=== PATIENT | male | born 1955 | race Caucasian/White ===

== ENCOUNTER → 2023-11-13 | Outpatient (CLI) | payer MEDICARE, SELFPAY ==
--- NOTE | 2023-11-13 11:28 | MRI_ITS ---
STUDY: MR PROSTATE GLAND/ PELVIS WITH T WITHOUT CONTRAST REASON FOR EXAM: Male, 68 years old. planning for XRT, eval extent of disease in prosta NO NEW CONCERNS, RECENT DX PROSTATE CANCER, PSA 7.84, 19CC CLARISCAN TECHNIQUE: Standardized fat and water weighted pulse sequences were obtained in all 3 orthogonal planes, pre-and post contrast administration. 19CC CLCARISCAN was administered for the contrast portion of the examination. COMPARISON: MRI of the prostate gland dated August 07, 2023. CT planning therapy scan dated November 13, 2023 FINDINGS: Prostate gland volume/size: 6.13 x 4.31 x 4.03 cm Anterior fibromuscular stroma: Slightly thickened and irregular Peripheral zone: Mild patchy areas of heterogeneity and intermediate to low signal in the bilateral peripheral zones. Redemonstration of a 9.2 mm ovoid low signal focus in the right posterior aspect of the peripheral zone seen on image 17/32 series #8 that demonstrates minimal peripheral enhancement on the postcontrast study but no internal enhancement is seen on image 27/42 series 4. Diffusion weighted signal in the right posterior peripheral zone lesion is dark centrally and bright peripherally. Previously described lesion in the anterior aspect of the right peripheral zone appears to be at the junction of the peripheral and transitional zone as seen on image 46/32 series 3 measuring 1.18 cm and moderate enhancement as seen on image 28/42 series 11. There is persistent bright diffusion-weighted signal in this lesion as well. Central zone: Diffusely heterogeneous and nodular and cystic suggesting hyperplasia Transitional zone: Diffusely heterogeneous and nodular and cystic suggesting hyperplasia. Mixed cystic and solid 1.99 x 1.83 cm nodule in the left transitional zone that demonstrates enhancement of the capsule but not of the central components. There is herniation of the apex of the prostate gland into the base of the bladder. Prostate capsule: Intact Seminal vesicles: Unremarkable without evidence of an infiltrative mass Pelvic sidewall lymphadenopathy: None present on the current study Bony structures: Moderate bladder wall trabeculation and thickening likely due to some degree of bladder outlet obstruction given the presence of herniated prostate components in the trigone of the bladder. Normal visualized small intestine. Normal visualized colon. There is no pelvic fluid. Normal osseous structures. No evidence of lytic or blastic lesions or marrow edema of the visualized osseous structures. Normal abdominal wall. MRI/Pelvis W/WO Contrast IMPRESSION: No significant interval change 1. Peripheral zone: Mild patchy areas of heterogeneity and intermediate to low signal in the bilateral peripheral zones. Redemonstration of a 9.2 mm ovoid low signal focus in the right posterior aspect of the peripheral zone seen on image 17/32 series #8 that demonstrates minimal peripheral enhancement on the postcontrast study but no internal enhancement is seen on image 27/42 series 4. Diffusion weighted signal in the right posterior peripheral zone lesion is dark centrally and bright peripherally. 2. Previously described lesion in the anterior aspect of the right peripheral zone appears to be at the junction of the peripheral and transitional zone as seen on image 46/32 series 3 measuring 1.18 cm and moderate enhancement as seen on image 28/42 series 11. There is persistent bright diffusion-weighted signal in this lesion as well. 3. PI-RADS 4: high (clinically significant cancer is likely to be present) and right peripheral zone posteriorly lesion Reference information: Normal prostate tissue Benign prostatic hypertrophy cancer/tumor - low signal peripheral , transitional, and central zones malignancy appears as bright on DWI and low signal on ADC map Prostate imaging-reporting and data system (PI-RADS) PI-RADS 1: very low (clinically significant cancer is highly unlikely to be present) PI-RADS 2: low (clinically significant cancer is unlikely to be present) PI-RADS 3: intermediate (the presence of clinically significant cancer is equivocal) PI-RADS 4: high (clinically significant cancer is likely to be present) PI-RADS 5: very high (clinically significant cancer is highly likely to be present) PI-RADS X: component of exam technically inadequate or not performed Prostate malignancy distribution: Peripheral zone: 70-80% Transitional zone: 10-20% Central zone: 5% or less Electronically Signed: Ferdinand Coker MD at 9:08 EST Reading Location ID and State: [address] [place] [address] , Service support ,
--- OUTSIDE RECORDS SUMMARY | 2023-11-13 12:03 | XMS RPT_ITS | CCD ---
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 Name Role Phone Maritza Rodriguez Unavailable Unavailable Maritza Rodriguez Unavailable Unavailable Osborne IIRobbie Unavailable Unavailable Maritza Rodriguez Unavailable Unavailable No, Physician Primary Care Provider Unavailkevin Rodriguez MD, Maritza Szymanski Primary Care Provider Maritza Rodriguez Unavailable [phone] Unavailable Unavailable Jennifer VIEIRA, Maritza Szymanski Primary Care Provider CHRIS ARZOLA Admitting Unavaila ANDREW Baker Attending Unavailable CHIRS ARZOLA Referring Unavaila ble MARITZA RODRIGUEZ Primary Care Unavaila ble CHRIS ARZOLA Admitting Unavaila ble MARITZA MOTTA Unavailable CHRIS ARZOLA Referring Unavaila ble JENNIFER, MARITZA SZYMANSKI Primary Care Unavaila ble CHRIS ARZLOA Admitting Unavaila ble KARINA RAO Attending Unavailable CHRIS ARZOLA Referring Unavaila ble RODRIGUEZMARITZA Guallpa Primary Care Unavaila ble CHRIS ARZOLA Admitting Unavaila ble ANDREW BOWEN Attending Unavailable CHRIS ARZOLA Referring Unavaila ble MARITZA RODRIGUEZ Primary Care Unavaila ble CHRIS ARZOLA Admitting Unavaila ble PENG WEBB Attending Unavailable CHRIS ARZOLA Referring Unavaila ble RODRIGUEZ, MARITZA SZYMANSKI Primary Care Unavaila ble CHRIS ARZOLA Admitting Unavaila ble ANDREW BOWEN Attending Unavailable CHRIS ARZOLA Referring Unavaila ble RODRIGUEZMARITZA Guallpa Primary Care Unavaila ble ARZOLA, CHRIS LANCASTER Admitting Unavaila ble ARZOLA, CHRIS LANCASTER Attending Unavaila ble RODRIGUEZ, MARITZA SZYMANSKI Primary Care Unavaila ble ARZOLA, CHRIS LANCASTER Attending Unavaila ble ARZOLA, CHRIS LANCASTER Referring Unavaila ble RODRIGUEZ, MARITZA SZYMANSKI Primary Care Unavaila ble ARZOLA, CHRIS LANCASTER Attending Unavaila ble TUMU, MICATHAN Referring Unavailable RODRIGUEZ, MARITZA SZYMANSKI Primary Care Unavaila ble ARZOLA, CHRIS LANCASTER Admitting Unavaila ble RODRIGUEZ, MARITZA SZYMANSKI Primary Care Unavaila ble THRUSH, GIULIANAPARISH FALLE Attending Unavailable NO, PHYSICIAN Primary Care Unavailable YAMEL BLANCO Attending Unavailab le Maritza Rodriguez Unavailable Shantel Arthur Unavailable Unavailable Maritza Rodriguez MD Primary Care Provider Maritza Rodriguez MD Unavailable [phone] Jennifer, Dr. Maritza Szymanski Primary Care Unav ailable Scotty, Dr. Jackson Attending Unavailable Rodrigeuz, Dr. Maritza Szymanski Primary Care Unav ailable Jerson, Dr. Shantel Musa Attending Unavailabl e Rodriguez, Dr. Maritza Szymanski Primary Care Unav ailable Arzola, Dr. Chris Lancaster Attending Unav ailable Rodriguez, Dr. Maritza Szymanski Primary Care Unav ailable Rodriguez, Dr. Maritza Szymanski Referring Unav ailable Rodriguez, Dr. Maritza Szymanski Attending Unav ailable Rodriguez, Dr. Maritza Szymanski Primary Care Unav ailable Jerson, Dr. Shantel Musa Attending Unavailabl e OsborneRobbie Referring Unavailable Rodriguez, Maritza Primary Care Unavailable OsborneRobbie Attending Unavailable Rodriguez, Maritza Primary Care Unavailable Scotty, Dr. Jackson Attending Unavailable Scotty, Dr. Jackson Referring Unavailable Rodriguez, Maritza Primary Care Unavailable Rodriguez, Maritza Referring Unavailable Scotty, Dr. Jackson Attending Unavailable [facility] Unavailable Rodriguez, Maritza Attending Unavailable Rodriguez, Maritza Referring Unavailable Donte Page MD Unavailable Maritza Rodriguez MD Primary Care Provider MARITZA RODRIGUEZ Primary Care Unavailable ROBBIE OSBORNE Attending Unavailable MRAITZA RODRIGUEZ Primary Care Unavailable RENETTA BARRAGAN Attending Unavailable MARITZA RODRIGUEZ Primary Care Unavailable JENNIFER, MARITZA Guallpa Attending Unavailable MARITZA RODRIGUEZ Referring Unavailable MARITZA RODRIGUEZ Primary Care Unavailable ROBBIE OSBORNE Attending Unavailable JENNIFER, MARITZA Guallpa Primary Care Unavailable MARITZA RODRIGUEZ Attending Unavailable MARITZA RODRIGUEZ Primary Care Unavailable MARITZA RODRIGUEZ Attending Unavailable MARITZA RODRIGUEZ Referring Unavailable MARITZA RODRIGUEZ Primary Care Unavailable MARITZA RODRIGUEZ Admitting Unavaila ble DARIA MAYO Attending Unavailable JENNIFER, MARITZA SZYMANSKI Referring Unavaila ble RODRIGUEZ, MARITZA SZYMANSKI Primary Care Unavaila ble RODRIGUEZ, MARITZA SZYMANSKI Primary Care Unavaila ble MAYODARIA Referring Unavailable MAYODARIA Admitting Unavailable Maritza Rodriguez MD Primary Care Provider ROBBIE OSBORNE Admitting Unavailable ROBBIE OSBORNE Attending Unavailable MARITZA RODRIGUEZ Primary Care Unavailable ROBBIE OSBORNE Referring Unavailable MARITZA RODRIGUEZ Primary Care Unavailable ROBBIE OSBORNE Admitting Unavailable ROBBIE OSBORNE Attending Unavailable MARITZA RODRIGUEZ Primary Care Unavailable Medications Current Medications Medication Drug Class(es) Dates Sig (Normalized) Sig (Original) acetaminophen 325 mg / HYDROcodone bitartrate 5 mg oral tablet (4 sources) Opioid Agonist Start: 11-07-2023 take 1 tablet by mouth every six hours for pain HYDROcodone-aceta minophen (Porter) 5-325 mg tablet Indications: Prostate cancer (CMS/HCC) Take 1 tablet by mouth every 6 hours if needed for severe pain (7 - 10). 20 tablet 0 11/07/2023 Active Completed/Discontinued Medications Medication Drug Class(es) Dates Sig (Normalized) Sig (Original) acetaminophen 325 mg oral tablet (1 source) Start: 09-12-2023 End: 09-12-2023 acetaminophen (Tylenol) tablet 975 mg ciprofloxacin 500 mg oral tablet (3 sources) Quinolone Antimicrobial Start: 10-31-2023 End: 11-03-2023 take 1 tablet by mouth twice daily ciprofloxacin (Cipro) 500 mg tablet Indications: Prostate cancer (CMS/HCC) Take 1 tablet (500 mg) by mouth 2 times a day for 3 days. 6 tablet 0 10/31/2023 11/03/2023 Problems Active Problems Problem Classification Problem Date Documented Date Episodic/Chronic Acquired foot deformities (10 sources) Hallux valgus; Translations: [Hallux valgus (acquired), right foot] Onset: 02-18-2022 Chronic Cancer of prostate (9 sources) Malignant tumor of prostate; Translations: [Malignant neoplasm of prostate] Onset: 09-28-2023 09-28-2023 Chronic Coronary atherosclerosis and other heart disease (7 sources) Angina pectoris; Translations: [Other and unspecified angina pectoris] Onset: 03-10-2023 Chronic Diabetes mellitus without complication (20 sources) Type 2 diabetes mellitus; Translations: [Diabetes mellitus] Onset: 12-02-2022 04-11-2021 Chronic Disorders of lipid metabolism (20 sources) Hyperlipidemia; Translations: [Other and unspecified hyperlipidemia] Onset: 02-23-2022 02-23-2022 Chronic Essential hypertension (20 sources) Hypertensive disorder; Translations: [Unspecified essential hypertension] Onset: 02-23-2022 02-23-2022 Chronic Gout and other crystal arthropathies (20 sources) Acute gout; Translations: [Gout, unspecified] 04-11-2021 Chronic Hyperplasia of prostate (20 sources) Benign prostatic hyperplasia; Translations: [Hypertrophy (benign) of prostate without urinary obstruction and other lower urinary tract symptom (LUTS)] Onset: 12-02-2022 01-17-2023 Chronic Immunizations and screening for infectious disease (16 sources) Patient encounter status; Translations: [Other specified vaccination] Episodic Mycoses (1 source) Tinea pedis; Translations: [Tinea pedis] Episodic Nonspecific chest pain (13 sources) Chest pain; Translations: [Chest pain, unspecified] Onset: 01-14-2023 01-14-2023 Episodic Osteoarthritis (20 sources) Osteoarthritis of left knee joint; Translations: [Osteoarthrosis, unspecified whether generalized or localized, lower leg] Onset: 12-02-2022 12-02-2022 Chronic Other aftercare (1 source) nursing home (current) use of oral hypoglycemic drugs; Translations: [nursing home (current) use of oral hypoglycemic drugs] Onset: 01-14-2023 Episodic Other aftercare (1 source) Other [facility]dc (current) drug therapy; Translations: [Other long term acute care registered nurse (current) drug therapy] Onset: 01-14-2023 Episodic Other and ill-defined heart disease (1 source) Cardiomegaly; Translations: [Cardiomegaly] Onset: 01-17-2023 Chronic Other bone disease and musculoskeletal deformities (20 sources) Posterior calcaneal exostosis; Translations: [Juvenile osteochondrosis of tarsus, right ankle] Onset: 01-20-2022 Chronic Other connective tissue disease (20 sources) Calcaneal spur; Translations: [Calcaneal spur, unspecified foot] Episodic Other connective tissue disease (1 source) Exostosis of right calcaneus; Translations: [Calcaneal spur, right foot] Episodic Other connective tissue disease (1 source) Calcaneal spur of right foot; Translations: [Calcaneal spur, right foot] Episodic Other connective tissue disease (3 sources) Pain in right foot; Translations: [Pain in right foot] Episodic Other connective tissue disease (1 source) Swelling of right lower limb; Translations: [Other specified soft tissue disorders] Episodic Other male genital disorders (20 sources) Secondary erectile dysfunction; Translations: [Impotence of organic origin] Onset: 12-02-2022 12-02-2022 Chronic Other male genital disorders (19 sources) Male erectile dysfunction, unspecified; Translations: [Erectile dysfunction] Onset: 12-02-2022 Chronic Other non-traumatic joint disorders (2 sources) Acute ankle pain; Translations: [Pain in right ankle and joints of right foot] Episodic Other non-traumatic joint disorders (2 sources) Knee pain; Translations: [Pain in left knee] Onset: 12-02-2022 12-02-2022 Episodic Other screening for suspected conditions (not mental disorders or infectious disease) (20 sources) Raised prostate specific antigen; Translations: [Patient encounter status] Onset: 12-02-2022 01-17-2023 Episodic Past or Other Problems Problem Classification Problem Date Documented Da te Episodic/Chronic Genitourinary symptoms and ill-defined conditions (20 sources) Nocturia; Translations: [Nocturia] Onset: 12-02-2022 12-02-2022 Episodic Other connective tissue disease (3 sources) Other specified soft tissue disorders; Translations: [Other specified soft tissue disorders] Onset: 05-12-2022 Episodic Other non-traumatic joint disorders (20 sources) Pain in left knee; Translations: [Chronic pain of left knee] Onset: 12-02-2022 12-02-2022 Episodic Unclassified (6 sources) Patient encounter status; Translations: [History of Screening PSA (prostate specific antigen)] Unclassified (9 sources) Onset: 01-17-2023 Resolved: 08-24-2023 01-17-2023 NEGATED: Highlighted row has not occurred!Residual codes; unclassified (4 sources) Disease Episodic Results Test Name Value Interpretation Reference Range Facil ity Vital Signs Date Time Vital Sign Value Performing Clinician Faci lity 11-07-2023 09:50-0500 Diastolic blood pressure 88 mm[Hg] Robbie Osborne MD Work Phone: [facility] 11-07-2023 09:50-0500 Heart rate 64 /min Robbie Osborne MD Work Phone: [facility] 11-07-2023 09:50-0500 Respiratory rate 16 /min Robbie Osborne MD Work Phone: [facility] 11-07-2023 09:50-0500 SaO2% (BldA) [Mass fraction] 99 % Robbie Osborne MD Work Phone: [facility] 11-07-2023 09:50-0500 Systolic blood pressure 141 mm[Hg] Robbie Osborne MD Work Phone: [facility] 11-07-2023 09:10-0500 Body temperature 97.11 [degF] Robbie Osborne MD Work Phone: [facility] 11-07-2023 06:33-0500 Body height 182.9 cm Robbie Osborne MD Work Phone: [facility] 11-07-2023 06:33-0500 Body mass index (BMI) [Ratio] 27.84 kg/m2 Robbie Osborne MD Work Phone: [facility] 11-07-2023 06:33-0500 Body weight 93.1 kg Robbie Osborne MD Work Phone: [facility] 09-28-2023 07:38-0500 Body mass index (BMI) [Ratio] 27.53 kg/m2 Robbie Osborne MD Work Phone: [facility] 09-28-2023 07:38-0500 Body weight 92.08 kg Robbie Osborne MD Work Phone: [facility] 09-28-2023 07:38-0500 Respiratory rate 16 /min Robbie Osborne MD Work Phone: [facility] 09-12-2023 08:40-0500 Body temperature 97 [degF] Robbie Osborne MD Work Phone: [facility] 09-12-2023 08:40-0500 Diastolic blood pressure 90 mm[Hg] Robbie Osborne MD Work Phone: [facility] 09-12-2023 08:40-0500 Heart rate 62 /min Robbie Osborne MD Work Phone: [facility] 09-12-2023 08:40-0500 Respiratory rate 16 /min Robbie Osborne MD Work Phone: [facility] 09-12-2023 08:40-0500 SaO2% (BldA) [Mass fraction] 100 % Robbie Osborne MD Work Phone: [facility] 09-12-2023 08:40-0500 Systolic blood pressure 150 mm[Hg] Robbie Osborne MD Work Phone: [facility] 09-12-2023 06:25-0500 Body height 182.9 cm Robbie Osborne MD Work Phone: [facility] 09-12-2023 06:25-0500 Body mass index (BMI) [Ratio] 28.17 kg/m2 Robbie Osborne MD Work Phone: [facility] 09-12-2023 06:25-0500 Body weight 94.2 kg Robbie Osborne MD Work Phone: [facility] 09-04-2023 14:21-0500 Body height 182.9 cm Maritza Rodriguez MD Work Phone: [facility] 09-04-2023 14:21-0500 Body mass index (BMI) [Ratio] 29.15 kg/m2 Maritza Rodriguez MD Work Phone: [facility] 09-04-2023 14:21-0500 Body weight 97.48 kg Maritza Rodriguez MD Work Phone: [facility] 09-04-2023 14:21-0500 Diastolic blood pressure 80 mm[Hg] Maritza Rodriguez MD Work Phone: [phone] [place] [address] 09-04-2023 14:21-0500 Heart rate 83 /min Maritza Rodriguez MD Work Phone: [phone] [place] [address] 09-04-2023 14:21-0500 SaO2% (BldA) [Mass fraction] 96 % Maritza Rodriguez MD Work Phone: [facility] 09-04-2023 14:21-0500 Systolic blood pressure 140 mm[Hg] Maritza Rodriguez MD Work Phone: [facility] 08-24-2023 09:18-0500 Body height 182.9 cm Renetta Barragan MD Work Phone: [facility] 08-24-2023 09:18-0500 Body mass index (BMI) [Ratio] 28.35 kg/m2 Renetta Barragan MD Work Phone: [facility] 08-24-2023 09:18-0500 Body weight 94.8 kg Renetta Barragan MD Work Phone: [facility] 08-24-2023 09:18-0500 Diastolic blood pressure 84 mm[Hg] Renetta Barragan MD Work Phone: [facility] 08-24-2023 09:18-0500 Heart rate 79 /min Renetta Barragan MD Work Phone: [facility] 08-24-2023 09:18-0500 SaO2% (BldA) [Mass fraction] 97 % Renetta Barragan MD Work Phone: [facility] 08-24-2023 09:18-0500 Systolic blood pressure 140 mm[Hg] Renetta Barragan MD Work Phone: [facility] 07-12-2023 15:43-0400 Body mass index (BMI) [Ratio] 28.68 kg/m2 Maritza Rodriguez Work Phone: IP-Rkmerwm-Hbgjzlb Work Phone: 07-12-2023 15:43-0400 Body surface area Derived from formula 2.18 m2 Maritza Rodriguez Work Phone: FX-Fdfxfzz-Emgmgkg Work Phone: 07-12-2023 15:43-0400 Body weight 95.94 kg Maritza Rodriguez Work Phone: OA-Cozxgvv-Vnpzanm Work Phone: 07-12-2023 15:43-0400 Respiratory rate 16 /min Maritza Rodriguez Work Phone: UM-Llvvqzx-Krtxmnu Work Phone: 02-24-2023 08:47-0400 Body height 182.88 cm Maritza Rodriguez Work Phone: KI-Kscvwswdra-F[address]p [address] Work Phone: 02-24-2023 08:47-0400 Body mass index (BMI) [Ratio] 28.22 kg/m2 Maritza Rodriguez Work Phone: MB-Oyecdnabtx-Fwlok [address] Work Phone: 02-24-2023 08:47-0400 Body surface area Derived from formula 2.17 m2 Maritza Rodriguez Work Phone: FP-Eylxyvcvkn-Ivnqg [address] Work Phone: 02-24-2023 08:47-0400 Body weight 94.38 kg Maritza Rodriguez Work Phone: YW-Ewbzlqykkw-Zxzcj [address] Work Phone: 02-24-2023 08:47-0400 Diastolic blood pressure 72 mm[Hg] Maritza Rodriguez Work Phone: ON-Kagtuqothw-Kfpnm [address] Work Phone: 02-24-2023 08:47-0400 Heart rate 75 /min Maritza Rodriguez Work Phone: MK-Nfxxvvacdu-Hzkie [address] Work Phone: 02-24-2023 08:47-0400 SaO2% (BldA) [Mass fraction] 95 % Maritza Rodriguez Work Phone: NP-Lbhwbtivff-Rtlbj [address] Work Phone: 02-24-2023 08:47-0400 Systolic blood pressure 132 mm[Hg] Maritza Rodriguez Work Phone: YX-Nwbhzhrtxz-Uszoi [address] Work Phone: 02-16-2023 15:50-0400 Body height 182.9 cm Maritza Rodriguez MD Work Phone: [facility] 02-16-2023 15:50-0400 Body mass index (BMI) [Ratio] 28.7 kg/m2 Maritza Rodriguez MD Work Phone: [facility] 02-16-2023 15:50-0400 Body weight 95.98 kg Maritza Rodriguez MD Work Phone: [facility] 02-16-2023 15:50-0400 Diastolic blood pressure 70 mm[Hg] Maritza Rodriguez MD Work Phone: [facility] 02-16-2023 15:50-0400 Heart rate 95 /min Maritza Rodriguez MD Work Phone: [facility] 02-16-2023 15:50-0400 SaO2% (BldA) [Mass fraction] 96 % Maritza Rodriguez MD Work Phone: [facility] 02-16-2023 15:50-0400 Systolic blood pressure 130 mm[Hg] Maritza Rodriguez MD Work Phone: [facility] 01-17-2023 16:17-0400 Body height 182.9 cm Maritza Rodriguez MD Work Phone: [facility] 01-17-2023 16:17-0400 Body mass index (BMI) [Ratio] 27.86 kg/m2 Maritza Rodriguez MD Work Phone: [facility] 01-17-2023 16:17-0400 Body weight 93.17 kg Maritza Rodrgiuez MD Work Phone: [facility] 01-17-2023 16:17-0400 Diastolic blood pressure 90 mm[Hg] Maritza Rodriguez MD Work Phone: [facility] 01-17-2023 16:17-0400 Heart rate 75 /min Maritza Rodriguez MD Work Phone: [facility] 01-17-2023 16:17-0400 SaO2% (BldA) [Mass fraction] 98 % Maritza Rodriguez MD Work Phone: [facility] 01-17-2023 16:17-0400 Systolic blood pressure 140 mm[Hg] Maritza Rodriguez MD Work Phone: [facility] 01-14-2023 11:00-0400 Diastolic blood pressure 77 mm[Hg] Maritza Rodriguez Other Phone: [facility] 01-14-2023 11:00-0400 Heart rate 56 /min Maritza Rodriguez Other Phone: [facility] 01-14-2023 11:00-0400 Respiratory rate 18 /min Maritza Rodriguez Other Phone: [facility] 01-14-2023 11:00-0400 SaO2% (BldA) [Mass fraction] 95 % Maritza Rodriguez Other Phone: [facility] 01-14-2023 11:00-0400 Systolic blood pressure 150 mm[Hg] Maritza Rodriguez Other Phone: [facility] 01-14-2023 05:16-0400 Body height 182.8 cm Maritza Rodriguez Other Phone: [facility] 01-14-2023 05:16-0400 Body temperature 97.52 [degF] Maritza Rodriguez Other Phone: [facility] 01-14-2023 05:16-0400 Body weight 90.9 kg Maritza Rodriguez Other Phone: [facility] 07-21-2022 15:04-0400 Body height 182.88 cm Maritza Rodriguez Work Phone: [employer] Work Phone: 07-21-2022 15:04-0400 Body mass index (BMI) [Ratio] 29.19 kg/m2 Maritza Rodriguez Work Phone: [facility] Work Phone: 07-21-2022 15:04-0400 Body surface area Derived from formula 2.2 m2 Maritza Rodriguez Work Phone: [facility] Work Phone: 07-21-2022 15:04-0400 Body weight 97.64 kg Maritza Rodriguez Work Phone: [facility] Work Phone: 07-21-2022 15:04-0400 Diastolic blood pressure 70 mm[Hg] Heberrufino Bordend Work Phone: [facility] Work Phone: 07-21-2022 15:04-0400 Heart rate 75 /min Maritza Rodriguez Work Phone: [facility] Work Phone: 07-21-2022 15:04-0400 SaO2% (BldA) [Mass fraction] 95 % Maritza Rodriguez Work Phone: [facility] Work Phone: 07-21-2022 15:04-0400 Systolic blood pressure 140 mm[Hg] Heberrufino Rodriguez Work Phone: [facility] Work Phone: 06-02-2022 13:30-0400 Diastolic blood pressure 82 mm[Hg] Chris Arzola DPM Work Phone: [facility] 06-02-2022 13:30-0400 Heart rate 73 /min Chris Arzola DPM Work Phone: [facility] 06-02-2022 13:30-0400 Systolic blood pressure 157 mm[Hg] Chris Arzola DPM Work Phone: [facility] 06-02-2022 13:19-0400 Body temperature 98.4 [degF] Chris Arzola DPM Work Phone: [facility] 05-12-2022 13:24-0400 Diastolic blood pressure 84 mm[Hg] Chrsi Arzola DPM Work Phone: [facility] 05-12-2022 13:24-0400 Heart rate 73 /min Chris Arzola DPM Work Phone: [facility] 05-12-2022 13:24-0400 Systolic blood pressure 171 mm[Hg] Chris Arzola DPM Work Phone: [facility] 05-12-2022 13:17-0400 Body temperature 98.6 [degF] Chris Senaman DPM Work Phone: [facility] 04-28-2022 15:38-0400 Diastolic blood pressure 72 mm[Hg] Chris Mandujanomerman DPM Work Phone: [facility] 04-28-2022 15:38-0400 Heart rate 76 /min Chris Senaman DPM Work Phone: [facility] 04-28-2022 15:38-0400 Systolic blood pressure 122 mm[Hg] Chris Senaman DPM Work Phone: [facility] 04-28-2022 15:31-0400 Body temperature 99.3 [degF] Chris Mandujanomerman DPM Work Phone: [facility] 04-07-2022 10:59-0400 Diastolic blood pressure 89 mm[Hg] Chris Mandujanomerman DPM Work Phone: [facility] 04-07-2022 10:59-0400 Heart rate 71 /min Chris Senaman DPM Work Phone: [facility] 04-07-2022 10:59-0400 Systolic blood pressure 169 mm[Hg] Chris Senaman DPM Work Phone: [facility] 04-07-2022 10:45-0400 Body temperature 98.1 [degF] Chris Senaman DPM Work Phone: [facility] 03-24-2022 10:46-0400 Diastolic blood pressure 75 mm[Hg] Chris Senaman DPM Work Phone: [facility] 03-24-2022 10:46-0400 Heart rate 73 /min Chris Senaman DPM Work Phone: [facility] 03-24-2022 10:46-0400 Systolic blood pressure 143 mm[Hg] Chris Senaman DPM Work Phone: [facility] 03-24-2022 10:44-0400 Body temperature 98.2 [degF] Chris Senaman DPM Work Phone: [facility] 03-17-2022 08:59-0400 Diastolic blood pressure 81 mm[Hg] Chrisbrody MandujanoArzola DPM Work Phone: [facility] [facility] 03-17-2022 08:59-0400 Heart rate 71 /min Chris Arzola DPM Work Phone: [facility] 03-17-2022 08:59-0400 Systolic blood pressure 158 mm[Hg] Chrisbrody MandujanoArzola DPM Work Phone: [facility] 03-17-2022 08:52-0400 Body temperature 98.4 [degF] Chrisbrody MandujanoArzola DPM Work Phone: [facility] 03-03-2022 07:44-0400 Diastolic blood pressure 74 mm[Hg] Chris Mandujanomerman DPM Work Phone: [facility] 03-03-2022 07:44-0400 Heart rate 71 /min Chrisbrody MandujanoArzola DPM Work Phone: [facility] 03-03-2022 07:44-0400 Systolic blood pressure 157 mm[Hg] Chris Mandujanomerman DPM Work Phone: [facility] 03-03-2022 07:40-0400 Body temperature 98.4 [degF] Chris Mandujanomerman DPM Work Phone: [facility] 01-04-2022 16:17-0400 Body height 182.88 cm Maritza Rodriguez Work Phone: [facility] Work Phone: 01-04-2022 16:17-0400 Body mass index (BMI) [Ratio] 27.83 kg/m2 Maritza Rodriguez Work Phone: [facility] Work Phone: 01-04-2022 16:17-0400 Body surface area Derived from formula 2.15 m2 Maritza Rodriguez Work Phone: [facility] Work Phone: 01-04-2022 16:17-0400 Body weight 93.07 kg Maritza Rodriguez Work Phone: [facility] Work Phone: 01-04-2022 16:17-0400 Diastolic blood pressure 66 mm[Hg] Maritza Rodriguez Work Phone: [facility] Work Phone: 01-04-2022 16:17-0400 Heart rate 76 /min Maritza Rodriguez Work Phone: [facility] Work Phone: 01-04-2022 16:17-0400 SaO2% (BldA) [Mass fraction] 96 % Maritza Rodriguez Work Phone: [facility] Work Phone: 01-04-2022 16:17-0400 Systolic blood pressure 122 mm[Hg] Maritza Rodriguez Work Phone: [facility] Work Phone: 12-23-2021 10:42-0500 Body temperature 98.1 [degF] Chris Arzola DPM Work Phone: [facility] 12-23-2021 10:42-0500 Diastolic blood pressure 76 mm[Hg] Chris Arzola DPM Work Phone: [facility] 12-23-2021 10:42-0500 Heart rate 71 /min Chris Arzola DPM Work Phone: [facility] 12-23-2021 10:42-0500 Systolic blood pressure 127 mm[Hg] Chris Arzola DPM Work Phone: [facility] 07-05-2021 15:53-0400 Body height 182.88 cm Maritza Rodriguez Work Phone: [facility] Work Phone: 07-05-2021 15:53-0400 Body mass index (BMI) [Ratio] 28.39 kg/m2 Maritza Rodriguez Work Phone: [facility] Work Phone: 07-05-2021 15:53-0400 Body surface area Derived from formula 2.17 m2 Maritza Rodriguez Work Phone: [facility] Work Phone: 07-05-2021 15:53-0400 Body temperature 97.5 [degF] Maritza Rodriguez Work Phone: [facility] Work Phone: 07-05-2021 15:53-0400 Body weight 94.94 kg Maritza Rodriguez Work Phone: [facility] Work Phone: 07-05-2021 15:53-0400 Diastolic blood pressure 76 mm[Hg] Maritza Rodriguez Work Phone: [facility] Work Phone: 07-05-2021 15:53-0400 Heart rate 66 /min Maritza Rodriguez Work Phone: [facility] Work Phone: 07-05-2021 15:53-0400 SaO2% (BldA) [Mass fraction] 98 % Maritza Rodriguez Work Phone: [facility] Work Phone: 07-05-2021 15:53-0400 Systolic blood pressure 130 mm[Hg] Maritza Rodriguez Work Phone: [facility] Work Phone: 06-07-2021 08:39-0400 Body height 182.88 cm Maritza Rodriguez Work Phone: [facility] Work Phone: 06-07-2021 08:39-0400 Body mass index (BMI) [Ratio] 28.89 kg/m2 Heberrufino Rodriguez Work Phone: [facility]Klf[facility]xt[facility]wn Work Phone: 06-07-2021 08:39-0400 Body surface area Derived from formula 2.19 m2 Maritza Guallpa Rodriguez Work Phone: [facility]owjo[facility]Bmvuvao Work Phone: 06-07-2021 08:39-0400 Body weight 96.62 kg Maritza Guallpa Rodriguez Work Phone: CD-Gzjqvoa-Fogrobk Work Phone: 06-07-2021 08:39-0400 Diastolic blood pressure 79 mm[Hg] Maritza Guallpa Rodriguez Work Phone: CA-Qqqbaqr-Cmcodwk Work Phone: 06-07-2021 08:39-0400 Heart rate 61 /min Heberrufino Rodriguez Work Phone: AW-Jrxaiwx-Ohddadl Work Phone: 06-07-2021 08:39-0400 Systolic blood pressure 139 mm[Hg] Hebershirleyjennifer Guallpa Rodriguez Work Phone: FS-Esknmxa-Fvclszn Work Phone: 05-27-2021 11:01-0400 Body height 182.88 cm Maritza Guallpa Rodriguez Work Phone: [facility] Work Phone: 05-27-2021 11:01-0400 Body mass index (BMI) [Ratio] 28.75 kg/m2 Maritza Rodriguez Work Phone: [facility] 300 Work Phone: 05-27-2021 11:01-0400 Body surface area Derived from formula 2.18 m2 Maritza Rodriguez Work Phone: [facility] 300 Work Phone: 05-27-2021 11:01-0400 Body temperature 97.7 [degF] Maritza Rodriguez Work Phone: [facility] 300 Work Phone: 05-27-2021 11:01-0400 Body weight 96.16 kg Maritza Rodriguez Work Phone: [facility] 300 Work Phone: 05-27-2021 11:01-0400 Diastolic blood pressure 81 mm[Hg] Maritza Rodriguze Work Phone: [facility] 300 Work Phone: 05-27-2021 11:01-0400 Heart rate 68 /min Maritza Rodriguez Work Phone: [facility] 300 Work Phone: 05-27-2021 11:01-0400 Systolic blood pressure 139 mm[Hg] Maritza Rodriguez Work Phone: [facility] 300 Work Phone: 04-22-2021 07:57-0400 Body height 182.9 cm Chris Arzola DPM Work Phone: [facility] 04-22-2021 07:57-0400 Body mass index (BMI) [Ratio] 27.8 kg/m2 Chris Arzola DPM Work Phone: [facility] 04-22-2021 07:57-0400 Body temperature 97 [degF] Chris Arzola DPM Work Phone: [facility] 04-22-2021 07:57-0400 Body weight 92.99 kg Chris Arzola DPM Work Phone: [facility] 04-22-2021 07:57-0400 Diastolic blood pressure 71 mm[Hg] Chrisbrody MandujanoArzola DPM Work Phone: [facility] 04-22-2021 07:57-0400 Heart rate 82 /min Chris Arzola DPM Work Phone: [facility] 04-22-2021 07:57-0400 Systolic blood pressure 123 mm[Hg] Chris Arzola DPM Work Phone: [facility] 03-22-2021 08:03-0400 Body height 182.9 cm Chrisbrody MandujanoArzola DPM Work Phone: [facility] 03-22-2021 08:03-0400 Body mass index (BMI) [Ratio] 27.8 kg/m2 Chris Mandujanomerman DPM Work Phone: [facility] 03-22-2021 08:03-0400 Body weight 92.99 kg Chrisbrody MandujanoArzola DPM Work Phone: [facility] 02-15-2021 09:23-0400 Diastolic blood pressure 70 mm[Hg] Chris Arzola DPM Work Phone: [facility] 02-15-2021 09:23-0400 Systolic blood pressure 140 mm[Hg] Chris Mandujanomerman DPM Work Phone: [facility] 02-14-2021 18:05-0400 Body height 182.9 cm Yamel Blanco MD Work Phone: [facility] 02-14-2021 18:05-0400 Body mass index (BMI) [Ratio] 28.48 kg/m2 Yamel Blanco MD Work Phone: [facility] 02-14-2021 18:05-0400 Body temperature 99.81 [degF] Yamel Blanco MD Work Phone: [facility] 02-14-2021 18:05-0400 Body weight 95.25 kg Yamel Blanco MD Work Phone: [facility] 02-14-2021 18:05-0400 Diastolic blood pressure 99 mm[Hg] Yamel Blanco MD Work Phone: [facility] 02-14-2021 18:05-0400 Heart rate 91 /min Yamel Blanco MD Work Phone: [facility] 02-14-2021 18:05-0400 Respiratory rate 18 /min Yamel Blanco MD Work Phone: [facility] 02-14-2021 18:05-0400 SaO2% (BldA) [Mass fraction] 96 % Yamel Blanco MD Work Phone: [facility] 02-14-2021 18:05-0400 Systolic blood pressure 158 mm[Hg] Yamel Blanco MD Work Phone: [facility] 12-28-2020 09:57-0400 BMI (Body Mass Index) 29.57 kg/m2 Robbie Osborne II QV-Tktlmyu-Bfzqvzj Work Phone: 12-28-2020 09:57-0400 Body weight 98.88 kg Robbie Osborne II BZ-Yrobecp-Qlmql nd Work Phone: 12-28-2020 09:57-0400 BP Diastolic 78 mm[Hg] Robbie Osborne II SN-Suoulxq-Hjeah nd Work Phone: 12-28-2020 09:57-0400 BP Systolic 154 mm[Hg] Robbie Osborne II MX-Gakxipx-Aerul nd Work Phone: 12-28-2020 09:57-0400 BSA (Body Surface Area) 2.21 m2 Robbie Osborne II QE-Rlqaybl-Qjmhlgk Work Phone: 12-28-2020 09:57-0400 Height 182.88 cm Robbie Osborne II EN-Oeinfjy-Jeulr nd Work Phone: 12-28-2020 09:57-0400 Pulse (Heart Rate) 79 /min Robbie Osborne II DS-Rcugdti-Ge hland Work Phone: 12-07-2020 11:00-0500 BP Diastolic 76 mm[Hg] Robbie Osborne II GZ-Whiyrpv-Rlrer nd Work Phone: 12-07-2020 11:00-0500 BP Systolic 134 mm[Hg] Robbie Osborne II PU-Lcpespx-Ninlz nd Work Phone: 12-07-2020 10:37-0500 BMI (Body Mass Index) 29.18 kg/m2 Robbie Osborne II LK-Tswcjjy-Rzpocnp Work Phone: 12-07-2020 10:37-0500 Body Temperature 96.8 [degF] Robbie Osborne GALEN TC-Wutdhmz-Viqf and Work Phone: 12-07-2020 10:37-0500 Body weight 97.58 kg Robbie Osborne II CT-Oypsbbj-Ttmkb nd Work Phone: 12-07-2020 10:37-0500 BP Diastolic 80 mm[Hg] Robbie Osborne II QB-Glybsvc-Eogyo nd Work Phone: 12-07-2020 10:37-0500 BP Systolic 140 mm[Hg] Robbie Walkertrevor AARON WS-Swmhhoz-Svmtc nd Work Phone: 12-07-2020 10:37-0500 BSA (Body Surface Area) 2.2 m2 Robbie Osborne GALEN CZ-Xsyudyt-Dzlcxmb Work Phone: 12-07-2020 10:37-0500 Height 182.88 cm Robbie Osborne II MX-Wdfyhpa-Hcudn nd Work Phone: 12-07-2020 10:37-0500 Pulse (Heart Rate) 75 /min Robbie Osborne GALEN XT-Plzgasi-Xq hland Work Phone: 12-07-2020 10:37-0500 Pulse Oximetry 99 % Robbie Dylon AARON VS-Iomjyhi-Nrvim nd Work Phone: Encounters Encounter Date Encounter Type Care Provider Facility Start: 11-07-2023 End: 11-07-2023 Subsequent hospital visit by physician Robbie Osborne MD Work Phone: [facility] [place] Procedures Date Procedure Procedure Detail Performing Clinician Start: 11-07-2023 Glucose quantitative blood xcpt reagent strip Robbie Osborne MD Work Phone: Start: 11-07-2023 PULSE OXIMETRY, SPOT Paty lita Osborne MD Work Phone: Start: 10-19-2023 Arthrocentesis aspir &/inj major jt/bursa w/o us Daria Mayo KNIFE OPERATOR Work Phone: Start: 09-12-2023 Glucose [Mass/volume ] in Serum or Plasma ROBBIE OSBORNE Start: 09-12-2023 DISCHARGE PATIENT ROBBIE OSBORNE Start: 09-12-2023 SURGICAL PATHOLOGY EXAM ROBBIE OSBORNE Start: 09-12-2023 PLACE IN OUTPATIENT/HOSPITAL AMBULATORY SURGERY ROBBIE OSBORNE Start: 09-12-2023 Glucose quantitative blood xcpt reagent strip Robbie Osborne MD Work Phone: Start: 09-12-2023 Glucose [Mass/volume ] in Serum or Plasma ROBBIE OSBORNE Start: 09-12-2023 Glucose quantitative blood xcpt reagent strip Robbie Osborne MD Work Phone: Start: 09-04-2023 FOLLOW UP IN FAMILY MEDICINE ROBBIE OSBORNE Start: 08-24-2023 ALBUMIN, URINE RANDOM C HRSANDOR RODRIGUEZ Start: 08-24-2023 Comprehensive metabo lic 2000 panel - Serum or Plasma MARITZA RODRIGUEZ Start: 08-24-2023 Hemoglobin A1c/Hemoglobin.total in Blood MARITZA RODRIGUEZ Start: 08-24-2023 Lipid panel GURPREET RODRIGUEZ Start: 08-24-2023 PROSTATE SPECIFIC AN TIGEN, SCREEN MARITZA RODRIGUEZ Start: 08-24-2023 Thyrotropin [Units/v olume] in Serum or Plasma MARITZA RODRIGUEZ Start: 08-24-2023 Lipid 1996 panel - S javier or Plasma Maritza Rodriguez MD Work Phone: Start: 08-07-2023 MR PROSTATE SHORTY BOUNDARIES ROBBIE OSBORNE Start: 08-07-2023 Mri pelvis w/o & w/c ontrast material Robbie Osborne MD Work Phone: Start: 02-16-2023 FOLLOW UP IN FAMILY MEDICINE ROBBIE OSBORNE Start: 01-14-2023 End: 01-14-2023 EKG impression Alessio Schultz Gaboalisha Start: 01-11-2023 Lipid 1996 panel - S javier or Plasma Maritza Rodriguez MD Work Phone: Start: 06-02-2022 Radex foot complete minimum 3 views Chris Lancaster Guevara DPM Work Phone: Start: 05-12-2022 Radex foot complete minimum 3 views Chris Lancaster Guevara DPM Work Phone: Start: 04-28-2022 Radex foot complete minimum 3 views Chris Lancaster Guevara DPM Work Phone: Start: 04-07-2022 NURSING COMMUNICATIO N- RITUXAN REACTION Chris Lancaster Guevara DPM Work Phone: Start: 03-24-2022 CAST REMOVAL Chrisbrody Burger sara Arzola DPM Work Phone: Start: 12-23-2021 NURSING COMMUNICATIO N- RITUXAN REACTION Chris Lancaster Guevara DPM Work Phone: Start: 03-19-2021 Assay of blood/uric acid Historical Provider Start: 02-16-2021 Complete blood count with white cell differential, manual Historical Provider Start: 02-14-2021 Radex ankle complete minimum 3 views Yamel Blanco MD Work Phone: Start: 01-05-2021 Colonoscopy Chris parks DPM Work Phone: Start: 01-05-2021 Colonoscopy Gurpreet Rodriguez Work Phone: Plan of Treatment Date Care Activity Detail Author Start: 01-05-2031 [facility] Start: 08-24-2024 Lipid panel Lipid Panel [facility] Start: 08-24-2024 Urine screening for protein Diabetes: Urine Protein Screening [facility] Start: 08-22-2024 End: 08-22-2024 Patient encounter procedure 08/22/2024 3:45 PM EST Office Visit [facility] [address] [place] [address] Renetta Barragan MD [address] [place] [address] [facility], [facility] [address] [id number] [facility] Start: 03-04-2024 End: 09-04-2024 Cholesterol in LDL [Mass/volume] in Serum or Plasma Cholesterol, LDL Direct Lab Routine Type 2 diabetes mellitus without complication, without long-term current use of insulin ([facility]) Mixed hyperlipidemia Expected: 03/04/2024 (Approximate), Expires: 09/04/2024 [facility] Service Area Work Phone: Immunizations Immunization Date Immunization Notes Care Provider Fa cility 06-09-2021 Moderna COVID-19 Vaccine 100 MCG/0.5ML Intramuscular Suspension Maritza Rodriguez Work Phone: [facility] Work Phone: Payers Date Payer Category Payer Medicare [id number] 2021 Medicare [id number] 2020 Medicare [id number] 1.2.8 [id number] 2020 Medicare [id number] 1955 Unknown [id number] 2.16. 840.1.290000.3.579.2.903 1953 Unknown [id number] 2.16. 840.1.687426.3.579.2.903 1953 Unknown [id number] 2.16. 840.1.377853.3.579.2.903 1953 Unknown [id number] 2.16. 840.1.695572.3.579.2.903 1953 Unknown [id number] 2.16. 840.1.933168.3.579.2.903 1953 Unknown [id number] 2.16. 840.1.524910.3.579.2.903 1953 Unknown [id number] 2.16. 840.1.067012.3.579.2.3 1953 Unknown [id number] 2.16. 840.1.607686.3.579.2.903 1953 Unknown [id number] 2.16. 840.1.803042.3.579.2.3 1953 Unknown [id number] 2.16. 840.1.420963.3.579.2.3 1953 Unknown [id number] 2.16. 840.1.662101.3.579.2.2 1953 Unknown [id number] 2.16.8 40.1.997403.3.579.2.1069 1953 Unknown [id number] 2.16.8 40.1.440711.3.579.2.1069 1953 Unknown [id number] 2.16.8 40.1.599292.3.579.2.9 1953 Unknown [id number] 2.16.8 40.1.658479.3.579.2.1069 1953 Unknown [id number] 2.16.8 40.1.506153.3.579.2.1069 1953 Unknown [id number] 2.16. 840.1.916602.3.579.2.356 1953 Unknown [id number] 2.16. 840.1.748102.3.579.2.356 1953 Unknown [id number] 2.16. 840.1.106999.3.579.2.356 1953 Unknown [id number] 2.16. 840.1.027938.3.579.2.356 1953 Unknown [id number] 2.16.8 40.1.972425.3.579.2.1245 1953 Unknown [id number] 2.16.8 40.1.922076.3.579.2.1244 1953 Unknown [id number] 2.16.8 40.1.551870.3.579.2.1244 1953 Unknown [id number] 2.16.8 40.1.832307.3.579.2.1244 1953 Unknown [id number] 2.16.8 40.1.578749.3.579.2.1244 1953 Unknown [id number] 2.16.84 0.1.384687.3.579.2.1244 1953 Unknown [id number] 2.16.84 0.1.139263.3.579.2.1244 1953 Unknown [id number] 2.16. 840.1.823064.3.579.2.903 1953 Unknown [id number] 2.16. 840.1.444214.3.579.2.903 1953 Unknown [id number] 2.16.84 0.1.725446.3.579.2.1243 1953 Unknown [id number] 2.16.84 0.1.480805.3.579.2.1243 1953 Unknown [id number] 2.16.84 0.1.355349.3.579.2.124 Unknown Unknown [id number] Social History Date Type Detail Facility Assertion Unknown if ever smoked [facility] Work Phone: Start: 02-14-2021 End: 01-17-2023 Tobacco smoking status NHIS Never smoker [facility] Start: 02-14-2021 End: 01-17-2023 Tobacco use and exposure Never used [facility] Start: 02-14-2021 End: 11-07-2023 Alcohol intake Current drinker of alcohol (finding) [facility] Start: 02-14-2021 Alcohol Comment occasional [facility] Start: 1955 Sex Assigned At Not on file [facility] Start: 12-13-2021 End: 11-07-2023 Exposure to SARS-CoV-2 (event) Not sure [facility] Start: 03-03-2022 End: 01-17-2023 Consumes alcohol occasionally Consumes alcohol occasionally [facility] [address] Work Phone: Tobacco smoking consumption unknown [facility] Start: 01-17-2023 Alcohol intake Not Asked [facility] Work Phone: Start: 01-17-2023 Alcohol Comment rarely [facility] Work Phone: Start: 01-17-2023 End: 11-01-2023 Gender identity Not on file [facility] Work Phone: Start: 02-11-2021 Gender identity Identifies as male gender (finding) [facility] Start: 02-11-2021 Sexual orientation Heterosexual (finding) [facility] Medical Equipment Procedure Code Equipment Code Equipment Origin al Text Equipment Identifier Dates Screw 2.7 X 20mm Cortex Self-Tap T8 Strdrv Rec - [id number] Start: 03-09-2022 Gold Markers, 1. 2mm, Soft Tissue, 20cm 17ga [place], 3-Pk, Strl - Sna - [id number] Start: 11-07-2023 Functional Status Date Assessment Result Facility Functional observable [facility] NEGATED: Highlighted row Functional performance Functional status health issues are not documented Disease [facility] Work Phone: Mental Status Date Assessment Result Facility 01-14-2023 Cognitive functi ons 39:51 [facility] NEGATED: Highlighted row Cognitive function [Interpretation] Cognitive status health issues are not documented Disease [facility] Work Phone: Clinical Notes 07-05-2020 to 11-07-2023 Discharge InstructionsOp Note - Robbie Osborne MD - 11/07/2023 8:22 AM ESTOp Note - Robbie Osborne MD - 11/07/2023 8:22 AM ESTPreprocedure Instructions - Jenny Bowden RN - 11/01/2023 12:18 PM EST<item> Note Date & Type Note Facility 11-07-2023 Hospital Discharge instructions Rita Panchal RN - 11/07/2023 8:35 AM EST See General Anesthesia Handout provided. Resume all Home Medications as prescribed unless told otherwise by Oncologist. documented in this encounter [facility] Work Phone: 11-07-2023 Note Formatting of this n ote is different from the original. Ultrasonography Transrectal Prostate with SpaceOAR and Fudicial Markers, Insertion Fiducial Marker Prostate Operative Note Date: 11/07/2023 OR Location: [facility] OR Name: Sandoval Adams, : 1955, Age: 68 y.o., , Sex: male Diagnosis Pre-op Diagnosis * Prostate cancer (CMS/HCC) [C61] Post-op Diagnosis * Prostate cancer (CMS/HCC) [C61] Procedures Ultrasonography Transrectal Prostate with SpaceOAR and Fudicial Markers 32812 - CHG US TRANSRECTAL Insertion Fiducial Marker Prostate 39407 - MD PLMT INTERSTITIAL DEV RADIAT TX PROSTATE 1/MULT Surgeons * Robbie Osborne - Primary Resident/Fellow/Other Comparison Shopper: Surgeon(s) and Role: Procedure Summary Anesthesia: General ASA: II Anesthesia Staff: Anesthesiologist: Vitor Auguste MD Estimated Blood Loss: 0mL Intra-op Medications: * No intraprocedure medications in log * Anesthesia Record Intraprocedure I/O Totals None Specimen: No specimens collected Staff: Performance Improvement Analyst: Latricia Mclaughlin RN; Donna Ventura, JESICA Scrub Person: Roxanne Pena RN; Xavier Millan Implants: Implants Type Name Action Serial No. Implant GOLD MARKERS, 1.2MM, SOFT TISSUE, 20CM 17GA NEEDLES, 3-PK, STRL - SNA - [id number] Implanted NA Indications: Sandoval Adams is an 68 y.o. male who is having surgery for Prostate cancer (CMS/HCC) [C61]. The patient was seen in the preoperative area. The risks, benefits, complications, treatment options, non-operative alternatives, expected recovery and outcomes were discussed with the patient. The possibilities of reaction to medication, pulmonary aspiration, injury to surrounding structures, bleeding, recurrent infection, the need for additional procedures, failure to diagnose a condition, and creating a complication requiring transfusion or operation were discussed with the patient. The patient concurred with the proposed plan, giving informed consent. The site of surgery was properly noted/marked if necessary per policy. The patient has been actively warmed in preoperative area. Anesthetic: General Estimated blood loss: Minimal. Complications: None. Pre-Op Diagnosis: Prostate cancer. Post-Op Diagnosis: Prostate cancer. Operation: ULTRASOUND GUIDED TRANSPERNINEAL PLACEMENT OF SPACEOAR AND FIDUCIAL MARKERS Physician: Dylon Anesthesia: General INDICATIONS AND CONSENT: patient has a history of prostate cancer who now presents for treatment. After the risks, benefits, alternatives and indications for the procedure were explained, he consented. PROCEDURE: The subject was positioned in the dorsal lithotomy position. A bilateral pudendal nerve block was performed using standard technique (1% lidocaine solution) The needle was advanced to the mid perineum region and an adequate dose of Lidocaine was injected. Once this area became anesthetized (~5 min), the needle was advanced until it was proximal to the pudendal nerve, and an additional dose of Lidocaine was injected. Once the area was completely anesthetized (~5 min), placement of SpaceOAR commence. Intra-Service Prior to needle insertion, an axial measurement of the space between the prostate (mid gland) and rectum was noted. SpaceOAR hydrogel was prepared as described in the pony rougher s Instructions For Use while the patient was prepped. With the subject maintained in the dorsal lithotomy position, the transrectal ultrasound (TRUS) probe was positioned to enable visual guidance of the needle into the space between the prostate and the rectum. Under transrectal ultrasound guidance, the 15 cm 18G needle was inserted through the rectourethralis muscle and the needle tip advanced into the perirectal fat inferior to the prostate all by using a transperineal approach and with side-fire transrectal ultrasound guidance. The needle position was confirmed in both sagittal and axial carrillo. Saline was used to dissect the space between the Denonvilliers fascia and anterior rectal wall ( hydrodissection ). A space was created with hydrodissection. With the needle tip at mid gland, the axial field was viewed to confirm the needle was not in the rectal wall (movement of the needle tip without corresponding movement of the rectal wall will confirm perirectal placement). While maintaining the desired position, aspiration was done to ensure that the needle was not in vascular space. The assembled SpaceOAR delivery system was then attached to the 18G needle. Under ultrasound guidance (sagittal plane), a smooth, continuous injection technique was used to dispense the SpaceOAR hydrogel into the space between the prostate and rectum (Denonvilliers fascia and the anterior rectal wall). The entire syringe contents (10 mL total) were injected without stopping. Optimal visualization of the needle during hydrogel administration was maintained at all times. An axial measurement of the space between the prostate (mid gland) and rectum immediately post-SpaceOAR injection was noted. No suspected penetration or compromise of the rectal wall occurred. Post-Service He will continue ciprofloxacin 500 mg twice daily until gone and follow-up next week for his pre IMRT imaging for planning with Radiation Oncologist The patient tolerated the procedure well. There were no complications. Attending Attestation: I was present and scrubbed for the entire procedure. Robbie Osborne [facility] Work Phone: 11-07-2023 Miscellaneous Notes Ultrasonography Transrectal Prostate with SpaceOAR and Fudicial Markers, Insertion Fiducial Marker Prostate Operative Note Date: 11/07/2023 OR Location: [facility] OR Name: Sandoval Adams, : 1955, Age: 68 y.o., , Sex: male Diagnosis Pre-op Diagnosis * Prostate cancer (CMS/HCC) [C61] Post-op Diagnosis * Prostate cancer (CMS/HCC) [C61] Procedures Ultrasonography Transrectal Prostate with SpaceOAR and Fudicial Markers 75281 - CHG US TRANSRECTAL Insertion Fiducial Marker Prostate 56603 - MD PLMT INTERSTITIAL DEV RADIAT TX PROSTATE 1/MULT Surgeons * Robbie Osborne - Primary Resident/Fellow/Other Comparison Shopper: Surgeon(s) and Role: Procedure Summary Anesthesia: General ASA: II Anesthesia Staff: Anesthesiologist: Vitor Auguste MD Estimated Blood Loss: 0mL Intra-op Medications: * No intraprocedure medications in log * Anesthesia Record Intraprocedure I/O Totals None Specimen: No specimens collected Staff: Performance Improvement Analyst: Latricia Mclaughlin RN; Donna Ventura RN Scrub Person: Roxanne Pena RN; Xavier Millan Implants: Implants Type Name Action Serial No. Implant GOLD MARKERS, 1.2MM, SOFT TISSUE, 20CM 17GA NEEDLES, 3-PK, STRL - SNA - [id number] Implanted NA Indications: Sandoval Adams is an 68 y.o. male who is having surgery for Prostate cancer ([facility]) [C61]. The patient was seen in the preoperative area. The risks, benefits, complications, treatment options, non-operative alternatives, expected recovery and outcomes were discussed with the patient. The possibilities of reaction to medication, pulmonary aspiration, injury to surrounding structures, bleeding, recurrent infection, the need for additional procedures, failure to diagnose a condition, and creating a complication requiring transfusion or operation were discussed with the patient. The patient concurred with the proposed plan, giving informed consent. The site of surgery was properly noted/marked if necessary per policy. The patient has been actively warmed in preoperative area. Anesthetic: General Estimated blood loss: Minimal. Complications: None. Pre-Op Diagnosis: Prostate cancer. Post-Op Diagnosis: Prostate cancer. Operation: ULTRASOUND GUIDED TRANSPERNINEAL PLACEMENT OF SPACEOAR AND FIDUCIAL MARKERS Physician: Dylon Anesthesia: General INDICATIONS AND CONSENT: patient has a history of prostate cancer who now presents for treatment. After the risks, benefits, alternatives and indications for the procedure were explained, he consented. PROCEDURE: The subject was positioned in the dorsal lithotomy position. A bilateral pudendal nerve block was performed using standard technique (1% lidocaine solution) The needle was advanced to the mid perineum region and an adequate dose of Lidocaine was injected. Once this area became anesthetized (~5 min), the needle was advanced until it was proximal to the pudendal nerve, and an additional dose of Lidocaine was injected. Once the area was completely anesthetized (~5 min), placement of SpaceOAR commence. Intra-Service Prior to needle insertion, an axial measurement of the space between the prostate (mid gland) and rectum was noted. SpaceOAR hydrogel was prepared as described in the pony rougher s Instructions For Use while the patient was prepped. With the subject maintained in the dorsal lithotomy position, the transrectal ultrasound (TRUS) probe was positioned to enable visual guidance of the needle into the space between the prostate and the rectum. Under transrectal ultrasound guidance, the 15 cm 18G needle was inserted through the rectourethralis muscle and the needle tip advanced into the perirectal fat inferior to the prostate all by using a transperineal approach and with side-fire transrectal ultrasound guidance. The needle position was confirmed in both sagittal and axial carrillo. Saline was used to dissect the space between the Denonvilliers fascia and anterior rectal wall ( hydrodissection ). A space was created with hydrodissection. With the needle tip at mid gland, the axial field was viewed to confirm the needle was not in the rectal wall (movement of the needle tip without corresponding movement of the rectal wall will confirm perirectal placement). While maintaining the desired position, aspiration was done to ensure that the needle was not in vascular space. The assembled SpaceOAR delivery system was then attached to the 18G needle. Under ultrasound guidance (sagittal plane), a smooth, continuous injection technique was used to dispense the SpaceOAR hydrogel into the space between the prostate and rectum (Denonvilliers fascia and the anterior rectal wall). The entire syringe contents (10 mL total) were injected without stopping. Optimal visualization of the needle during hydrogel administration was maintained at all times. An axial measurement of the space between the prostate (mid gland) and rectum immediately post-SpaceOAR injection was noted. No suspected penetration or compromise of the rectal wall occurred. Post-Service He will continue ciprofloxacin 500 mg twice daily until gone and follow-up next week for his pre IMRT imaging for planning with Radiation Oncologist The patient tolerated the procedure well. There were no complications. Attending Attestation: I was present and scrubbed for the entire procedure. Robbie Osborne No outpatient medications have been marked as taking for the 11/07/23 encounter (Hospital Encounter). 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 male presenting with prostate cancer. Past Medical History Past Medical History: Diagnosis Date Diabetes mellitus (CMS/HCC) Encounter for screening for malignant neoplasm of prostate Screening PSA (prostate specific antigen) Hyperlipidemia Hypertension Surgical History Past Surgical History: Procedure Laterality Date OTHER SURGICAL HISTORY 11/28/2019 Tonsillectomy with adenoidectomy OTHER SURGICAL HISTORY 01/05/2021 Colonoscopy OTHER SURGICAL HISTORY 07/21/2022 Foot surgery OTHER SURGICAL HISTORY 07/21/2022 Bunionectomy PROSTATE BIOPSY Social History He reports that he has never smoked. He has never used smokeless tobacco. He reports current alcohol use. He reports that he does not currently use drugs. Family History Family History Problem Relation Name Age of Onset Breast cancer Mother Hypertension Mother Hyperlipidemia Mother Alzheimer's disease Father Allergies Patient has no known allergies. Review of Systems Constitutional: Negative for chills and fever. HENT: Negative. Eyes: Negative. Respiratory: Negative for cough and shortness of breath. Cardiovascular: Negative for chest pain and leg swelling. Gastrointestinal: Negative for nausea. Endocrine: Negative. Genitourinary: Negative for difficulty urinating. Negative except for documented in HPI Allergic/Immunologic: Negative. Neurological: Alert & oriented X 3 Hematological: Denies blood thinners Psychiatric/Behavioral: Negative. Physical Exam Vitals and nursing note reviewed. Pulmonary: Effort: Pulmonary effort is normal. Breath sounds: Normal breath sounds. Abdominal: Palpations: Abdomen is soft. Tenderness: There is no abdominal tenderness. Genitourinary: Comments: Kidneys non palpable bilaterally Bladder non palpable or tender Neurological: Mental Status: He is alert. Last Recorded Vitals Blood pressure 156/87, pulse 76, temperature 36.7 C (98.1 F), temperature source Temporal, resp. rate 19, height 1.829 m (6'), weight 93.1 kg (205 lb 4 oz), SpO2 96 %. Assessment/Plan Principal Problem: Prostate cancer (CMS/HCC) Robbie Osborne MD [facility] Work Phone: 11-07-2023 History and physical note History Of Present Illness Sandoval Adams is a 68 y.o. male presenting with prostate cancer. Past Medical History Past Medical History: Diagnosis Date Diabetes mellitus (CMS/HCC) Encounter for screening for malignant neoplasm of prostate Screening PSA (prostate specific antigen) Hyperlipidemia Hypertension Surgical History Past Surgical History: Procedure Laterality Date OTHER SURGICAL HISTORY 11/28/2019 Tonsillectomy with adenoidectomy OTHER SURGICAL HISTORY 01/05/2021 Colonoscopy OTHER SURGICAL HISTORY 07/21/2022 Foot surgery OTHER SURGICAL HISTORY 07/21/2022 Bunionectomy PROSTATE BIOPSY Social History He reports that he has never smoked. He has never used smokeless tobacco. He reports current alcohol use. He reports that he does not currently use drugs. Family History Family History Problem Relation Name Age of Onset Breast cancer Mother Hypertension Mother Hyperlipidemia Mother Alzheimer's disease Father Allergies Patient has no known allergies. Review of Systems Constitutional: Negative for chills and fever. HENT: Negative. Eyes: Negative. Respiratory: Negative for cough and shortness of breath. Cardiovascular: Negative for chest pain and leg swelling. Gastrointestinal: Negative for nausea. Endocrine: Negative. Genitourinary: Negative for difficulty urinating. Negative except for documented in HPI Allergic/Immunologic: Negative. Neurological: Alert & oriented X 3 Hematological: Denies blood thinners Psychiatric/Behavioral: Negative. Physical Exam Vitals and nursing note reviewed. Pulmonary: Effort: Pulmonary effort is normal. Breath sounds: Normal breath sounds. Abdominal: Palpations: Abdomen is soft. Tenderness: There is no abdominal tenderness. Genitourinary: Comments: Kidneys non palpable bilaterally Bladder non palpable or tender Neurological: Mental Status: He is alert. Last Recorded Vitals Blood pressure 156/87, pulse 76, temperature 36.7 C (98.1 F), temperature source Temporal, resp. rate 19, height 1.829 m (6'), weight 93.1 kg (205 lb 4 oz), SpO2 96 %. Assessment/Plan Principal Problem: Prostate cancer (CMS/HCC) Robbie Osborne MD documented in this encounter [facility] Work Phone: 11-01-2023 Note Formatting of this n ote is different from the original. No outpatient medications have been marked as taking for the 11/07/23 encounter (Hospital Encounter). 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 is a he with left knee pain. Chief Complaint Patient presents with Left Knee - Pain . HPI: Knee Pain: Patient presents to the office today with left knee pain. He denies any injury to the knee. He reports having pain and discomfort on a consistent basis. He is still able to do everything he wants and needs to do on a daily basis. He does use otc pain medications as needed which do seem to help with his symptoms. He hasn't had any type of injections or any type of physical therapy for the left knee. He is inquiring about a possible knee replacement. PMH: No Known Allergies Current Outpatient Medications: amLODIPine (NORVASC) 5 MG tablet, Take 5 mg by mouth daily evening ., Disp: , Rfl: atorvastatin (LIPITOR) 40 MG tablet, Take 40 mg by mouth daily evening ., Disp: , Rfl: glimepiride (AMARYL) 1 MG tablet, , Disp: , Rfl: lisinopriL (PRINIVIL,ZESTRIL) 40 MG tablet, Take 40 mg by mouth morning ., Disp: , Rfl: pioglitazone-metFORMIN (ACTOPLUS MET) 15-850 mg per tablet, Take 1 tablet by mouth Morning and evening ., Disp: , Rfl: Past Medical History: Diagnosis Date Diabetes (HCC) Diabetes mellitus (HCC) Diabetes mellitus, type 2 (HCC) GERD (gastroesophageal reflux disease) Gout attack Right ankle Heel spur Hyperlipidemia Hypertension Past Surgical History: Procedure Laterality Date BUNIONECTOMY Right 03/09/2022 Procedure: Neal BUNIONECTOMY right; Surgeon: Chris Arzola DPM; Location: [facility]; Service: Podiatry CT COLONOSCOPY 10/30/2022 CT COLONOSCOPY EXCISION JOSE'S DEFORMITY Right 03/09/2022 Procedure: EXCISION JOSE'S DEFORMITY right; Surgeon: Chris Arzola DPM; Location: [facility]; Service: Podiatry TONSILLECTOMY Social History Socioeconomic History Marital status: Tobacco Use Smoking status: Never Smokeless tobacco: Never Vaping Use Vaping Use: Never used Substance and Sexual Activity Alcohol use: Yes Comment: occasional Drug use: Never The patient's past medical history, surgical history, social history, family history, medications and allergies were reviewed with the patient today and are available in the chart for further review. ROS: Review of Systems Constitutional: Negative for activity change and fatigue. HENT: Negative for congestion, hearing loss and trouble swallowing. Eyes: Negative for visual disturbance. Respiratory: Negative for chest tightness and shortness of breath. Cardiovascular: Negative for chest pain and palpitations. Gastrointestinal: Negative for abdominal pain, diarrhea, nausea and vomiting. Endocrine: Negative for polydipsia, polyphagia and polyuria. Genitourinary: Negative for decreased urine volume, difficulty urinating and hematuria. Musculoskeletal: Positive for arthralgias and myalgias. Negative for joint swelling. Skin: Negative for color change, rash and wound. Allergic/Immunologic: Negative for immunocompromised state. Neurological: Negative for dizziness, weakness, light-headedness and numbness. Hematological: Does not bruise/bleed easily. Psychiatric/Behavioral: Negative for confusion and sleep disturbance. The patient is not nervous/anxious. PE: Physical Exam Constitutional: Appearance: He is well-developed. HENT: Head: Normocephalic. Eyes: Pupils: Pupils are equal, round, and reactive to light. Cardiovascular: Rate and Rhythm: Normal rate and regular rhythm. Pulmonary: Effort: Pulmonary effort is normal. Breath sounds: Normal breath sounds. Abdominal: General: Bowel sounds are normal. Palpations: Abdomen is soft. Musculoskeletal: General: Tenderness present. Normal range of motion. Cervical back: Normal range of motion and neck supple. Left knee: No effusion. Instability Tests: Medial Carolynn test negative and lateral Carolynn test negative. Skin: General: Skin is warm and dry. Neurological: Mental Status: He is alert and oriented to person, place, and time. ORTHO: Left Knee Exam Muscle Strength The patient has normal left knee strength. Tenderness The patient is experiencing tenderness in the medial joint line. Range of Motion The patient has normal left knee ROM. Tests Carolynn: Medial - negative Lateral - negative Varus: negative Valgus: negative Drawer: Anterior - negative Posterior - negative Other Erythema: absent Scars: absent Sensation: normal Pulse: present Swelling: mild Effusion: no effusion present Imaging: L Knee: No acute fracture or dislocation. Moderate tri-compartmental degenerative changes in the left knee. Assessment/Plan: After examination and reviewing of the patient x-ray images, we discussed treatment options. I did offer him a cortisone injection which he accepted. I did this without complications and he tolerated this well. He is able to have these every 3 months if they provide him with adequate pain relief. Diagnosis: Problem List Items Addressed This Visit None Visit Diagnoses Left knee pain, unspecified chronicity LG Jt Injection/Arthrocentesis: L knee Performed by: Daria Mayo CNP Authorized by: Daria Mayo CNP CPT 36434 - Large Joint Arthrocentesis: Consent given by: Patient Time out: Immediately prior to the procedure a time out was called Physician or proceduralist has discussed critical or nonroutine steps, procedure duration and anticipated blood loss: Yes Supporting Documentation: Indications: Pain and diagnostic evaluation Procedure Details: Location: Knee Site: L knee Prep: patient was prepped and draped in usual sterile fashion Needle size: 22 G Approach: Anterolateral Medications: 40 mg triamcinolone acetonide 40 mg/mL Anesthetic used: Lidocaine 1% Anesthetic amount (mL): 2 Patient tolerance: Patient tolerated the procedure well with no immediate complications Follow Up: No follow-ups on file. Daria Mayo CNP documented in this encounter [facility] 09-28-2023 History of Present illness Narrative Subjective Patient ID: Sandoval Adams is a 68 y.o. male. HPI Patient is here for Prostate MRI bx results. Path report showed prostate cancer. Kev 6. Most recent PSA was 9.27 on 07/08. . Prior PSA was 6.85 on 01/04. Prior PSA was 5.31 on 06/05. 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 No fhx of prostate cancer. Denies weight loss. Denies bone pain. Chronic BPH sx are mild and stable. Denies urgency and frequency. Denies dysuria. Denies hematuria. Nocturia x1. No medication for the prostate. Hx of kidney stones. Last stone was many years ago. No recent sx. ED is chronic. Review of Systems Constitutional: Negative for chills and fever. HENT: Negative. Eyes: Negative. Respiratory: Negative for cough and shortness of breath. Cardiovascular: Negative for chest pain and leg swelling. Gastrointestinal: Negative for nausea. Endocrine: Negative. Genitourinary: Negative for difficulty urinating. Negative except for documented in HPI Allergic/Immunologic: Negative. Neurological: Alert & oriented X 3 Hematological: Denies blood thinners Psychiatric/Behavioral: Negative. Objective Physical Exam Vitals and nursing note reviewed. Pulmonary: Effort: Pulmonary effort is normal. Breath sounds: Normal breath sounds. Abdominal: Palpations: Abdomen is soft. Tenderness: There is no abdominal tenderness. Genitourinary: Comments: Kidneys non palpable bilaterally Bladder non palpable or tender Neurological: Mental Status: He is alert. Assessment/Plan Diagnoses and all orders for this visit: Elevated PSA Male erectile disorder of organic origin Nocturia Prostate cancer (CMS/HCC) All available PSA values reviewed, Options discussed. Questions answered. Path report reviewed. Tx Options discussed. Pros/cons of tx options reviewed. Questions answered Discussed XRT VS Active surveilance. Patient interested in Radiation-Referral Literature given Diet changes for prostate health discussed and educational information given. Pros/Cons of prostate health supplements discussed. Treatment options for LUTS reviewed Discussed timed voiding. Discussed fluid and caffeine intake Treatment options for ED reviewed. Lifestyle change to help prevent UTIs discussed. Encouraged fluid intake. F/U 1 month REFERRAL to [facility] documented in this encounter [facility] Work Phone: 09-12-2023 Hospital Discharge instructions Antonella Swartz RN - 09/12/2023 8:43 AM EST Images from the original note were not included. Prostate Biopsy Discharge Instructions About this topic The prostate is a part of your body that helps make semen. The prostate is located at the base of the penis and in front of the rectum. Prostate biopsy is done: To help your doctor know if the lump or tumor in your prostate is cancer or not. If your blood test, called PSA or prostate specific antigen, is high. High PSA in the blood means disease in the prostate. During a prostate biopsy, the doctor uses a needle to collect pieces of tissue from the prostate. The doctor sends the tissue to the lab. The lab then checks the tissue for infection or cancer. What care is needed at home? Ask your doctor what you need to do when you go home. Make sure you ask questions if you do not understand what the doctor says. This way you will know what you need to do. Rest after the procedure to prevent bleeding from the biopsy site. Avoid activities like heavy lifting and hard exercise. You may see some blood in your urine or stools for the next few days. You may also have blood in your semen for a few weeks. Drink up to 8 glasses of water a day to help flush out blood. Use an ice pack to help with the pain and to help stop the bleeding for the first 2 days [address] the procedure[address] an ice pack or a bag of frozen peas wrapped in a towel over the painful part. Never put ice right on the skin. Do not leave the ice on more than 10 to 15 minutes at a time. Use ice each hour as needed. Keep your rectal opening and penis clean to prevent infection. Keep your wound dry for the next 24 hours. Ask your doctor about when you may take a bath or shower. Change the dressing if it gets soaked. What follow-up care is needed? Your doctor may ask you to make visits to the office to check on your progress. Be sure to keep your visits. It may take up to 2 weeks for your doctor to get the results. You may be asked to return to the doctor's office for the result of the biopsy in 2 to 3 weeks. The results will help your doctor understand what kind of problem you have with your prostate. Together you can make a plan for more care. Your doctor will talk with you if any other treatment is needed. What drugs may be needed? The doctor may order drugs to: Help with pain Prevent infection Will physical activity be limited? Avoid doing activities that may put pressure on your rectal area for the next 7 days. You may be more comfortable if you do not ride a bike, horse, or motorcycle. Limit your sexual activity for a few days after the procedure. Ask your doctor when you can have sex. Do not strain when going to the bathroom. Don't hold your urine. Holding back from urinating can irritate your bladder and lead to a urinary tract infection. Avoid constipation by eating foods high in fiber and staying hydrated. Straining to pass stool can worsen your symptoms as you heal. What problems could happen? Infection at the biopsy site Infection elsewhere in your body Bleeding from your rectum, or blood in your urine or semen Tumor spread Very bad pain Bladder or rectum perforation Urinary tract infection Trouble passing urine Erectile dysfunction Reduced sexual activity When do I need to call the doctor? Signs of infection like fever of 100.4 F (38 C) or higher, chills, burning or pain when you pass urine. No urine or more problems passing urine Dizziness, confusion, or weakness Yellowish, greenish, or bloody discharge from the penis Lots of rectal bleeding or large amounts of blood in the urine Pain does not go away even after taking your drugs Teach Back: Helping You Understand The Teach Back Method helps you understand the information we are giving you. After you talk with the staff, tell them in your own words what you learned. This helps to make sure the staff has described each thing clearly. It also helps to explain things that may have been confusing. Before going home, make sure you can do these: I can tell you about my procedure. I can tell you what may help ease my pain. I can tell you what I will do if I have a fever, chills, problems passing urine, or drainage from my penis. Last Reviewed Date 2021-03-02 Consumer Information Use and Disclaimer This generalized information is a limited summary of diagnosis, treatment, and/or medication information. It is not meant to be comprehensive and should be used as a tool to help the user understand and/or assess potential diagnostic and treatment options. It does NOT include all information about conditions, treatments, medications, side effects, or risks that may apply to a specific patient. It is not intended to be medical advice or a substitute for the medical advice, diagnosis, or treatment of a health care provider based on the health care provider's examination and assessment of a patient s specific and unique circumstances. Patients must speak with a health care provider for complete information about their health, medical questions, and treatment options, including any risks or benefits regarding use of medications. This information does not endorse any treatments or medications as safe, effective, or approved for treating a specific patient. [employer] and its affiliates disclaim any warranty or liability relating to this information or the use thereof. The use of this information is governed by the Terms of Use, available at https://www.[employer].Edai/en/k now/kuzefvqk-mijgsobalvoyv-ppnng Copyright 2022 [employer] and its affiliates and/or licensors. All rights reserved documented in this encounter [facility] Work Phone: 09-12-2023 Miscellaneous Notes MRI GUIDED PROSTATE FUSION BIOPSY, Ultrasonography Transrectal Prostate, Biopsy Anus Operative Note Date: 09/12/2023 OR Location: [facility] OR Name: Sandoval Jackie Adams, : 1955, Age: 68 y.o., , Sex: male Diagnosis Pre-op Diagnosis * Elevated PSA [R97.20] Post-op Diagnosis * Elevated PSA [R97.20] Procedures MRI GUIDED PROSTATE FUSION BIOPSY 97201 - MD PROSTATE NEEDLE BIOPSY ANY APPROACH Ultrasonography Transrectal Prostate 53758 - CHG US TRANSRECTAL Biopsy Anus 50658 - CHG US GUIDANCE NEEDLE PLACEMENT IMG S&I Surgeons * Robbie Osborne - Primary Resident/Fellow/Other Comparison Shopper: Surgeon(s) and Role: Procedure Summary Anesthesia: Monitor Anesthesia Care ASA: II Anesthesia Staff: Anesthesiologist: Vitor Auguste MD Estimated Blood Loss: 0mL Intra-op Medications: * No intraprocedure medications in log * Anesthesia Record Intraprocedure I/O Totals Intake Propofol Drip 0.00 mL The total shown is the total volume documented since Anesthesia Start was filed. Total Intake 0 mL Specimen: ID Type Source Tests Collected by Time 1 : PROSTATE NEEDLE BIOPSY RIGHT Tissue PROSTATE NEEDLE BIOPSY RIGHT SURGICAL PATHOLOGY EXAM Robbie Osborne MD 09/12/2023716 2 : PROSTATE NEEDLE BIOPSY LEFT Tissue PROSTATE NEEDLE BIOPSY LEFT SURGICAL PATHOLOGY EXAM Robbie Osborne MD 09/12/2023716 3 : AREA OF INTEREST#1 Tissue PROSTATE BIOPSY TARGETED SHORTY SURGICAL PATHOLOGY EXAM Robbie Osborne MD 09/12/2023 0717 4 : AREA OF INTEREST#2 Tissue PROSTATE BIOPSY TARGETED SHORTY SURGICAL PATHOLOGY EXAM Robbie Osborne MD 09/12/2023 0749 Staff: Performance Improvement Analyst: Donna Ventura RN Scrub Person: Roxanne Pena RN; Jett May RN Indications: Sandoval Adams is an 68 y.o. male who is having surgery for Elevated PSA [R97.20]. The patient was seen in the preoperative area. The risks, benefits, complications, treatment options, non-operative alternatives, expected recovery and outcomes were discussed with the patient. The possibilities of reaction to medication, pulmonary aspiration, injury to surrounding structures, bleeding, recurrent infection, the need for additional procedures, failure to diagnose a condition, and creating a complication requiring transfusion or operation were discussed with the patient. The patient concurred with the proposed plan, giving informed consent. The site of surgery was properly noted/marked if necessary per policy. The patient has been actively warmed in preoperative area. Pre Op dx: Elevated PSA and Abnormal MRI of the prostate Post Op Dx: SAME Procedure: MRI Guided Fusion Bx of the prostate Physician: DYLON Anesthesia: MAC Estimated Blood Loss: Minimal Complications: NONE Indications and Consent: Patient present for prostate Biopsy of lesion found on MRI. After the risks,, benefits, and indications were explained he consented to the procedure. PROCEDURE: After adequate sedation was obtained the ultrasound probe was inserted into the rectum. An ultrasound sweep of the prostate was performed. These images were then fused with the previously obtained MRI images. The lesion(s) were identified. Multiple targeted biopsies were obtained . I also performed standard Sextant biopsies of the right and left lobe of the prostate. The patient tolerated the procedure well. Attending Attestation: I was present and scrubbed for the entire procedure. Robbie Osborne No outpatient medications have been marked as taking for the 09/12/23 encounter (Hospital Encounter). 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 Will receive call day prior to surgery with arrival time documented in this encounter [facility] Work Phone: 09-12-2023 Note Formatting of this n ote is different from the original. MRI GUIDED PROSTATE FUSION BIOPSY, Ultrasonography Transrectal Prostate, Biopsy Anus Operative Note Date: 09/12/2023 OR Location: [facility] OR Name: Sandoval Adams, : 1955, Age: 68 y.o., , Sex: male Diagnosis Pre-op Diagnosis * Elevated PSA [R97.20] Post-op Diagnosis * Elevated PSA [R97.20] Procedures MRI GUIDED PROSTATE FUSION BIOPSY 23101 - MD PROSTATE NEEDLE BIOPSY ANY APPROACH Ultrasonography Transrectal Prostate 13430 - CHG US TRANSRECTAL Biopsy Anus 99127 - CHG US GUIDANCE NEEDLE PLACEMENT IMG S&I Surgeons * Robbie Osborne - Primary Resident/Fellow/Other Comparison Shopper: Surgeon(s) and Role: Procedure Summary Anesthesia: Monitor Anesthesia Care ASA: II Anesthesia Staff: Anesthesiologist: Vitor Auguste MD Estimated Blood Loss: 0mL Intra-op Medications: * No intraprocedure medications in log * Anesthesia Record Intraprocedure I/O Totals Intake Propofol Drip 0.00 mL The total shown is the total volume documented since Anesthesia Start was filed. Total Intake 0 mL Specimen: ID Type Source Tests Collected by Time 1 : PROSTATE NEEDLE BIOPSY RIGHT Tissue PROSTATE NEEDLE BIOPSY RIGHT SURGICAL PATHOLOGY EXAM Robbie Osborne MD 09/12/2023716 2 : PROSTATE NEEDLE BIOPSY LEFT Tissue PROSTATE NEEDLE BIOPSY LEFT SURGICAL PATHOLOGY EXAM Robbie Osborne MD 09/12/202317 3 : AREA OF INTEREST#1 Tissue PROSTATE BIOPSY TARGETED SHORTY SURGICAL PATHOLOGY EXAM Robbie Osborne MD 09/12/202317 4 : AREA OF INTEREST#2 Tissue PROSTATE BIOPSY TARGETED SHORTY SURGICAL PATHOLOGY EXAM Robbie Osborne MD 09/12/2023 0749 Staff: Performance Improvement Analyst: Donna Ventura RN Scrub Person: Roxanne Pena RN; Jett May RN Indications: Sandoval Adams is an 68 y.o. male who is having surgery for Elevated PSA [R97.20]. The patient was seen in the preoperative area. The risks, benefits, complications, treatment options, non-operative alternatives, expected recovery and outcomes were discussed with the patient. The possibilities of reaction to medication, pulmonary aspiration, injury to surrounding structures, bleeding, recurrent infection, the need for additional procedures, failure to diagnose a condition, and creating a complication requiring transfusion or operation were discussed with the patient. The patient concurred with the proposed plan, giving informed consent. The site of surgery was properly noted/marked if necessary per policy. The patient has been actively warmed in preoperative area. Pre Op dx: Elevated PSA and Abnormal MRI of the prostate Post Op Dx: SAME Procedure: MRI Guided Fusion Bx of the prostate Physician: DYLON Anesthesia: MAC Estimated Blood Loss: Minimal Complications: NONE Indications and Consent: Patient present for prostate Biopsy of lesion found on MRI. After the risks,, benefits, and indications were explained he consented to the procedure. PROCEDURE: After adequate sedation was obtained the ultrasound probe was inserted into the rectum. An ultrasound sweep of the prostate was performed. These images were then fused with the previously obtained MRI images. The lesion(s) were identified. Multiple targeted biopsies were obtained . I also performed standard Sextant biopsies of the right and left lobe of the prostate. The patient tolerated the procedure well. Attending Attestation: I was present and scrubbed for the entire procedure. Robbie Osborne [facility] Work Phone: 09-12-2023 History and physical note History Of Present Illness Sandoval Adams is a 68 y.o. male presenting with elevated PSA. Past Medical History Past Medical History: Diagnosis Date Encounter for screening for malignant neoplasm of prostate Screening PSA (prostate specific antigen) Surgical History Past Surgical History: Procedure Laterality Date BI MR GUIDED BREAST BIOPSY RIGHT Right 02/22/2022 BI MR GUIDED BREAST BIOPSY RIGHT 02/22/2022 OTHER SURGICAL HISTORY 11/28/2019 Tonsillectomy with adenoidectomy OTHER SURGICAL HISTORY 01/05/2021 Colonoscopy OTHER SURGICAL HISTORY 07/21/2022 Foot surgery OTHER SURGICAL HISTORY 07/21/2022 Bunionectomy Social History He reports that he has never smoked. He has never used smokeless tobacco. He reports current alcohol use. He reports that he does not currently use drugs. Family History Family History Problem Relation Name Age of Onset Breast cancer Mother Hypertension Mother Hyperlipidemia Mother Alzheimer's disease Father Allergies Patient has no known allergies. Review of Systems Constitutional: Negative for chills and fever. HENT: Negative. Eyes: Negative. Respiratory: Negative for cough and shortness of breath. Cardiovascular: Negative for chest pain and leg swelling. Gastrointestinal: Negative for nausea. Endocrine: Negative. Genitourinary: Negative for difficulty urinating. Negative except for documented in HPI Allergic/Immunologic: Negative. Neurological: Alert & oriented X 3 Hematological: Denies blood thinners Psychiatric/Behavioral: Negative. Physical Exam Vitals and nursing note reviewed. Pulmonary: Effort: Pulmonary effort is normal. Breath sounds: Normal breath sounds. Abdominal: Palpations: Abdomen is soft. Tenderness: There is no abdominal tenderness. Genitourinary: Comments: Kidneys non palpable bilaterally Bladder non palpable or tender Neurological: Mental Status: He is alert. Last Recorded Vitals Blood pressure (!) 165/93, pulse 75, temperature 36.8 C (98.3 F), temperature source Temporal, resp. rate 13, height 1.829 m (6'), weight 94.2 kg (207 lb 10.8 oz), SpO2 99 %. Assessment/Plan Principal Problem: Elevated PSA Robbie Osborne MD [facility] Work Phone: 09-12-2023 History and physical note History Of Present Illness Sandoval Adams is a 68 y.o. male presenting with elevated PSA. Past Medical History Past Medical History: Diagnosis Date Encounter for screening for malignant neoplasm of prostate Screening PSA (prostate specific antigen) Surgical History Past Surgical History: Procedure Laterality Date BI MR GUIDED BREAST BIOPSY RIGHT Right 02/22/2022 BI MR GUIDED BREAST BIOPSY RIGHT 02/22/2022 OTHER SURGICAL HISTORY 11/28/2019 Tonsillectomy with adenoidectomy OTHER SURGICAL HISTORY 01/05/2021 Colonoscopy OTHER SURGICAL HISTORY 07/21/2022 Foot surgery OTHER SURGICAL HISTORY 07/21/2022 Bunionectomy Social History He reports that he has never smoked. He has never used smokeless tobacco. He reports current alcohol use. He reports that he does not currently use drugs. Family History Family History Problem Relation Name Age of Onset Breast cancer Mother Hypertension Mother Hyperlipidemia Mother Alzheimer's disease Father Allergies Patient has no known allergies. Review of Systems Constitutional: Negative for chills and fever. HENT: Negative. Eyes: Negative. Respiratory: Negative for cough and shortness of breath. Cardiovascular: Negative for chest pain and leg swelling. Gastrointestinal: Negative for nausea. Endocrine: Negative. Genitourinary: Negative for difficulty urinating. Negative except for documented in HPI Allergic/Immunologic: Negative. Neurological: Alert & oriented X 3 Hematological: Denies blood thinners Psychiatric/Behavioral: Negative. Physical Exam Vitals and nursing note reviewed. Pulmonary: Effort: Pulmonary effort is normal. Breath sounds: Normal breath sounds. Abdominal: Palpations: Abdomen is soft. Tenderness: There is no abdominal tenderness. Genitourinary: Comments: Kidneys non palpable bilaterally Bladder non palpable or tender Neurological: Mental Status: He is alert. Last Recorded Vitals Blood pressure (!) 165/93, pulse 75, temperature 36.8 C (98.3 F), temperature source Temporal, resp. rate 13, height 1.829 m (6'), weight 94.2 kg (207 lb 10.8 oz), SpO2 99 %. Assessment/Plan Principal Problem: Elevated PSA Robbie Osborne MD H&P reviewed. The patient was examined and there are no changes to the H&P. Source Note - Micaela Negron MA - 08/30/2023 4:48 PM EST Med for bx documented in this encounter [facility] Work Phone: 09-12-2023 Attending History and physical note H&P reviewed. The patient was examined and there are no changes to the H&P. Source Note - Micaela Negron MA - 08/30/2023 4:48 PM EST Med for bx [facility] Work Phone: 09-05-2023 Note Formatting of this n ote is different from the original. No outpatient medications have been marked as taking for the 09/12/23 encounter (Hospital Encounter). 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 Will receive call day prior to surgery with arrival time [facility] 09-04-2023 Evaluation + Plan note Associated Problem(s): Benign prostatic hyperplasia without lower urinary tract symptoms Recently seen urology, PSA testing continuing to trend up, is awaiting to do biopsy. [facility] Work Phone: 09-04-2023 Evaluation + Plan note Associated Problem(s): Diabetes mellitus, type 2 (CMS/HCC) A1c testing below 7, continue with current medications. [facility] Work Phone: 09-04-2023 Miscellaneous Notes Associated Problem(s): Benign prostatic hyperplasia without lower urinary tract symptoms Recently seen urology, PSA testing continuing to trend up, is awaiting to do biopsy. Associated Problem(s): Diabetes mellitus, type 2 (CMS/HCC) A1c testing below 7, continue with current medications. Associated Problem(s): Hyperlipidemia Blood testing stable no change. Associated Problem(s): HTN (hypertension) Blood pressure under good control renal function stable, no change. documented in this encounter [facility] Work Phone: 09-04-2023 Evaluation + Plan note Associated Problem(s): Hyperlipidemia Blood testing stable no change. [facility] Work Phone: 09-04-2023 Evaluation + Plan note Associated Problem(s): HTN (hypertension) Blood pressure under good control renal function stable, no change. [facility] Work Phone: 09-04-2023 History of Present illness Narrative Subjective Patient ID: Sandoval Adams is a 68 y.o. male who presents for 6 MO LABS. HPI No low blood sugars since last OV, seen opthalmology in the past year, and no numbness or tingling in feet, skin normal. No headache, chest pain, shortness of breath, dizziness, lightheadedness, or edema Following with Osborne (urology) for BPH Seen cardiology due to elevated CT cardiac calcium test Pain in left knee, using ibuprofen 2 four times a day Review of Systems Constitutional: Negative for activity change, appetite change, fatigue and unexpected weight change. HENT: Negative for ear pain, nosebleeds, rhinorrhea, sneezing and trouble swallowing. Respiratory: Negative for cough, shortness of breath and wheezing. Cardiovascular: Negative for chest pain, palpitations and leg swelling. Gastrointestinal: Negative for abdominal distention, abdominal pain, constipation, diarrhea, nausea and vomiting. Genitourinary: Negative for difficulty urinating. Musculoskeletal: Positive for arthralgias. Skin: Negative for rash. Neurological: Negative for dizziness, light-headedness, numbness and headaches. Hematological: Negative for adenopathy. Psychiatric/Behavioral: Negative for behavioral problems. All other systems reviewed and are negative. Current Outpatient Medications: amLODIPine (Norvasc) 10 mg tablet, Take 1 tablet (10 mg) by mouth once daily., Disp: 90 tablet, Rfl: 3 aspirin 81 mg chewable tablet, Chew 1 tablet (81 mg) once daily., Disp: , Rfl: lisinopril 40 mg tablet, Take 1 tablet (40 mg) by mouth once daily., Disp: 90 tablet, Rfl: 3 glimepiride (Amaryl) 1 mg tablet, Take 1 tablet (1 mg) by mouth once daily., Disp: 90 tablet, Rfl: 3 pioglitazone-metformin (ACTOPlus Met) 15-850 mg tablet, Take 1 tablet by mouth 2 times a day., Disp: 180 tablet, Rfl: 3 rosuvastatin (Crestor) 20 mg tablet, Take 1 tablet (20 mg) by mouth once daily., Disp: 90 tablet, Rfl: 3 Objective BP 140/80 Pulse 83 Ht 1.829 m (6') Wt 97.5 kg (214 lb 14.4 oz) SpO2 96% BMI 29.15 kg/m Physical Exam Vitals and nursing note reviewed. Constitutional: Appearance: Normal appearance. HENT: Head: Normocephalic and atraumatic. Right Ear: Tympanic membrane, ear canal and external ear normal. Left Ear: Tympanic membrane, ear canal and external ear normal. Nose: Nose normal. Mouth/Throat: Mouth: Mucous membranes are moist. Pharynx: Oropharynx is clear. Cardiovascular: Rate and Rhythm: Normal rate and regular rhythm. Pulses: Normal pulses. Heart sounds: Normal heart sounds. Pulmonary: Effort: Pulmonary effort is normal. Breath sounds: Normal breath sounds. Musculoskeletal: Cervical back: Normal range of motion and neck supple. Neurological: Mental Status: He is alert. Psychiatric: Mood and Affect: Mood normal. Behavior: Behavior normal. Assessment/Plan Problem List Items Addressed This Visit ICD-10-CM Benign prostatic hyperplasia without lower urinary tract symptoms N40.0 Recently seen urology, PSA testing continuing to trend up, is awaiting to do biopsy. Relevant Orders Follow Up In Primary Care - Established Diabetes mellitus, type 2 ([facility]) - Primary E11.9 A1c testing below 7, continue with current medications. Relevant Medications glimepiride (Amaryl) 1 mg tablet pioglitazone-metformin (ACTOPlus Met) 15-850 mg tablet Other Relevant Orders Follow Up In Primary Care - Established Cholesterol, LDL Direct Comprehensive Metabolic Panel Hemoglobin A1C HTN (hypertension) I10 Blood pressure under good control renal function stable, no change. Relevant Orders Follow Up In Primary Care - Established Comprehensive Metabolic Panel Hyperlipidemia E78.5 Blood testing stable no change. Relevant Medications rosuvastatin (Crestor) 20 mg tablet Other Relevant Orders Follow Up In Primary Care - Established Cholesterol, LDL Direct Comprehensive Metabolic Panel Other Visit Diagnoses Codes Screening, ischemic heart disease Z13.6 Relevant Orders Follow Up In Primary Care - Established documented in this encounter [facility] Work Phone: 08-24-2023 History of Present illness Narrative Cardiology Subsequent Encounter Clinic Note Name: Sandoval Adams : 1955 CC: Elevated coronary artery calcium score Active Issues: Sandoval Adams is a 68 y.o. male with a medical history of diabetes, hypertension, here to establish care regarding the following: Chest heaviness -Single episode that woke him up at night. Denies any changes with position/palpation/respiration. Was admitted to the hospital; resolved within 2 hours; serial troponins were negative. EKG did not show any significant ST-T segment changes -Underwent a regadenoson stress test that showed no perfusion defects; EF was noted to be low. Has had only a single episode; denies any exertional angina or shortness of breath. Denies any orthopnea/PND. Does not have any lower extremity edema. Notably CT calcium score performed February 06, 2023 was~1100. Echo 02/2023 showed preserved biventricular function. The episode that woke him up from night associated with chest heaviness has not recurred in the past 6 months. Past Medical History Past Medical History: Diagnosis Date Encounter for screening for malignant neoplasm of prostate Screening PSA (prostate specific antigen) Past Surgical History Past Surgical History: Procedure Laterality Date OTHER SURGICAL HISTORY 11/28/2019 Tonsillectomy with adenoidectomy OTHER SURGICAL HISTORY 01/05/2021 Colonoscopy OTHER SURGICAL HISTORY 07/21/2022 Foot surgery OTHER SURGICAL HISTORY 07/21/2022 Bunionectomy Medications Current Outpatient Medications on File Prior to Visit Medication Sig Dispense Refill amLODIPine (Norvasc) 10 mg tablet Take 1 tablet (10 mg) by mouth once daily. 90 tablet 3 aspirin 81 mg chewable tablet Chew 1 tablet (81 mg) once daily. atorvastatin (Lipitor) 40 mg tablet Take 1 tablet (40 mg) by mouth once daily at bedtime. glimepiride (Amaryl) 1 mg tablet Take 1 tablet (1 mg) by mouth once daily. lisinopril 40 mg tablet Take 1 tablet (40 mg) by mouth once daily. 90 tablet 3 pioglitazone-metformin (ACTOPlus Met) 15-850 mg tablet Take 1 tablet by mouth 2 times a day. rosuvastatin (Crestor) 20 mg tablet Take 1 tablet (20 mg) by mouth once daily. No current facility-administered medications on file prior to visit. Allergies No Known Allergies Social History Social History Tobacco Use Smoking status: Never Smokeless tobacco: Never Vaping Use Vaping Use: Never used Substance Use Topics Alcohol use: Yes Comment: rarely Drug use: Not Currently Family History Family History Problem Relation Name Age of Onset Breast cancer Mother Hypertension Mother Hyperlipidemia Mother Alzheimer's disease Father Physical Examination Vitals: BP 140/84 Pulse 79 Ht 1.829 m (6') Wt 94.8 kg (209 lb) SpO2 97% BMI 28.35 kg/m General: awake, alert and oriented. No acute distress. Skin: Skin is warm, dry and intact without rashes or lesions. Appropriate color for ethnicity. Nail beds pink with no cyanosis or clubbing HEENT: normocephalic, atraumatic; conjunctivae are clear without exudates or hemorrhage. Sclera is non-icteric. Eyelids are normal in appearance without swelling or lesions. Hearing intact. Nares are patent bilaterally. Moist mucous membranes. Cardiovascular: Regular. No murmurs, gallops, or rubs are auscultated. S1 and S2 are heard and are of normal intensity. No JVD, no carotid bruits Respiratory: Thorax symmetric. CTAB, breath sounds vesicular. No crackles, wheezes or ronchi. Gastrointestinal: soft, non-distended, BS + x 4 Genitourinary: exam deferred Musculoskeletal: moves all extremities Extremities: pulses palpable bilaterally; no swelling or erythema; no edema Neurological: alert & oriented x 3; no focal deficits Psychiatric: appropriate mood and affect Labs/Imaging/Procedures Lab Results Component Value Date HGB 12.2 (L) 01/14/2023 HGB 13.0 (L) 02/15/2021 PLT 205 01/14/2023 WBC 7.3 01/14/2023 NA 142 01/14/2023 K 3.8 01/14/2023 CREATININE 1.20 01/14/2023 CREATININE 1.25 01/11/2023 CREATININE 1.32 (H) 06/30/2022 BUN 35 (H) 01/14/2023 CALCIUM 8.9 01/14/2023 TROPHS CANCELED 01/14/2023 TROPHS 8 01/14/2023 TROPHS 8 01/14/2023 LDLF 78 06/30/2022 No echocardiogram results found for the past 12 months MR prostate shorty boundaries Narrative: Interpreted By: Marixa Hess, STUDY: MR PROSTATE SHORTY BOUNDARIES; 08/07/2023 4:56 pm INDICATION: Signs/Symptoms:elevated psa. PSA is 9.27 on 07/05/2023 COMPARISON: None. ACCESSION NUMBER(S): [id number] ORDERING CLINICIAN: ROBBIE OSBORNE TECHNIQUE: Multiplanar MRI of the pelvis was obtained including axial, sagittal and coronal T2 weighted SSFSE, axial and sagittal T2 FSE, axial DWI, pre and post gadolinium dynamic T1 GRE sequences. Multiparametric analysis was performed. 18 mL Dotarem was administered intravenously without immediate complications. 3D post-processing was performed using Dheere Bolo, on an independent workstation, for the purpose of enabling fusion with ultrasound, and provided it for review. FINDINGS: PROSTATE VOLUME: The prostate measures 5.7 cm x 3.7 cm x 5.0 cm in [id number], anterior-posterior and craniocaudal dimension. PROSTATE PARENCHYMA: There is heterogeneous enlargement of the transition zone, consistent with benign prostatic hyperplasia. There is an approximately 1.2 cm well-defined T2 moderate hypointense lesion in the right anterior peripheral zone of the apex of the prostate, with markedly low ADC signal, markedly hyperintense signal on high B value DWI and early focal enhancement. There is an approximately 9 mm T2 well-defined moderately hypointense lesion in the posterior right peripheral zone of the base of the prostate with markedly hyperintense signal on the high B value DWI, markedly hypointense signal on the ADC and early focal enhancement. EXTRACAPSULAR EXTENSION: None. SEMINAL VESICLES: Within normal limits. PELVIC LYMPH NODES: No abnormally enlarged pelvic lymph nodes are identified. PERITONEUM: No free or loculated fluid collections are evident in the pelvis. OTHER ORGANS: Within normal limits. BONES: No focal lesions are noted in the bone. Right bursitis adjacent to the right hip joint. Impression: 1. A 1.2 cm PI RADS 4 lesion in the right anterior peripheral zone of the apex of the prostate. No extraprostatic extension. 2. A 0.9 cm PI RADS 4 lesion in the right posterior peripheral zone of the base of the prostate. No extraprostatic extension. 3. No pelvic lymphadenopathy. PI-RADS 4 - High (clinically significant cancer is likely to be present). 3D post-processing was performed using Dheere Bolo on an independent workstation, for the purpose of enabling fusion with ultrasound, and provided for review. I personally reviewed the images/study and I agree with the findings as stated. This study was interpreted at [place], [place]. MACRO: None Signed by: Marixa Hess 08/07/2023 10:45 PM Dictation workstation: [id number] Impression Sandoval Adams is a 68 y.o. male with a medical history of diabetes, hypertension, here to establish care regarding the following: Patient's chest heaviness does not seem consistent with anginal symptoms. He does have a high calcium score; however a recent ischemic evaluation was negative and an echocardiogram does show preserved biventricular function. At this point continue aspirin/statin. Assessment and plan: -Hypertension: Blood pressure appears to be largely well controlled. Continue current medications -Diabetes concurrent with hyperlipidemia in the setting of a high calcium score: LDL almost at goal. Continue current dose of statin. No signs and symptoms endorsed by angina. Given the lack of angina and preserved biventricular function no indication to pursue invasive ischemic evaluation/revascularization at this time. I asked him to call us back in case he develops any symptoms suggestive of ischemia -RTC 1 year Renetta Barragan MD Advanced Heart Failure/Transplant Cardiology Cardio-Oncology [facility] documented in this encounter [facility] Work Phone: 07-08-2023 History of Present illness Narrative Patient is here for 2 year f/u for hx of elevated PSA. Most recent PSA was 9.27 on 07/08. . Prior PSA was 6.85 on 01/04. Prior PSA was 5.31 on 06/05. 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 No fhx of prostate cancer. Denies weight loss. Denies bone pain. Chronic BPH sx are mild and stable. Denies urgency and frequency. Denies dysuria. Denies hematuria. Nocturia x1. No medication for the prostate. Hx of kidney stones. Last stone was many years ago. No recent sx. ED is chronic. [facility] Work Phone: 02-16-2023 Evaluation + Plan note Associated Problem(s): HTN (hypertension) Blood pressure better, encouraged to check blood pressure outside of the office, bring blood pressure meter and records with him to his next office visit. No change today. Patient to see cardiology later this month, had a markedly abnormal CT cardiac calcium score, significant family history of coronary artery disease, tolerating statin medications currently. Diabetes seems to be under good control based on last blood test, patient has been unable to tolerate thiazide diuretics in the past. [facility] Work Phone: 02-16-2023 Miscellaneous Notes Associated Problem(s): HTN (hypertension) Blood pressure better, encouraged to check blood pressure outside of the office, bring blood pressure meter and records with him to his next office visit. No change today. Patient to see cardiology later this month, had a markedly abnormal CT cardiac calcium score, significant family history of coronary artery disease, tolerating statin medications currently. Diabetes seems to be under good control based on last blood test, patient has been unable to tolerate thiazide diuretics in the past. documented in this encounter [facility] Work Phone: 02-16-2023 History of Present illness Narrative Subjective Patient ID: Sandoval Adams is a 67 y.o. male who presents for 1 MO F/U. HPI No headache, chest pain, shortness of breath, dizziness, lightheadedness, or edema No low blood sugars since last OV, seen opthalmology in the past year, and no numbness or tingling in feet, skin normal. To see Cardiology later this month HBP no checks Review of Systems Constitutional: Negative for activity change, appetite change and fatigue. Respiratory: Negative for cough, chest tightness and shortness of breath. Cardiovascular: Negative for chest pain, palpitations and leg swelling. Gastrointestinal: Negative for abdominal pain, constipation, diarrhea, nausea and vomiting. Objective BP 130/70 Pulse 95 Ht 1.829 m (6') Wt 96 kg (211 lb 9.6 oz) SpO2 96% BMI 28.70 kg/m Physical Exam Vitals and nursing note reviewed. Constitutional: Appearance: Normal appearance. Cardiovascular: Rate and Rhythm: Normal rate and regular rhythm. Pulses: Normal pulses. Heart sounds: Normal heart sounds. Pulmonary: Effort: Pulmonary effort is normal. Breath sounds: Normal breath sounds. Neurological: Mental Status: He is alert. Psychiatric: Mood and Affect: Mood normal. Behavior: Behavior normal. Assessment/Plan Problem List Items Addressed This Visit Circulatory HTN (hypertension) Blood pressure better, encouraged to check blood pressure outside of the office, bring blood pressure meter and records with him to his next office visit. No change today. Patient to see cardiology later this month, had a markedly abnormal CT cardiac calcium score, significant family history of coronary artery disease, tolerating statin medications currently. Diabetes seems to be under good control based on last blood test, patient has been unable to tolerate thiazide diuretics in the past. Relevant Orders Albumin , Urine Random Comprehensive Metabolic Panel Follow Up In Primary Care Genitourinary Benign prostatic hyperplasia without lower urinary tract symptoms Relevant Orders Follow Up In Primary Care Endocrine/Metabolic Diabetes mellitus, type 2 (CMS/HCC) Relevant Orders Albumin , Urine Random Comprehensive Metabolic Panel Hemoglobin A1C Thyroid Stimulating Hormone Lipid Panel Follow Up In Primary Care Other Hyperlipidemia Relevant Orders Comprehensive Metabolic Panel Lipid Panel Follow Up In Primary Care Other Visit Diagnoses Prostate cancer screening - Primary Relevant Orders Prostate Specific Antigen, Screen Screening, ischemic heart disease Relevant Orders Follow Up In Primary Care documented in this encounter [facility] Work Phone: 01-17-2023 Evaluation + Plan note Associated Problem(s): Hyperlipidemia LDL cholesterol below 100, slightly above 75, no change with medication tolerating statin medicine. [facility] Work Phone: 01-17-2023 Evaluation + Plan note Associated Problem(s): Diabetes mellitus, type 2 (CMS/HCC) A1c testing down below 6 now, discontinue glimepiride, continue with current medications. [facility] Work Phone: 01-17-2023 Miscellaneous Notes Associated Problem(s): Hyperlipidemia LDL cholesterol below 100, slightly above 75, no change with medication tolerating statin medicine. Associated Problem(s): Diabetes mellitus, type 2 (CMS/HCC) A1c testing down below 6 now, discontinue glimepiride, continue with current medications. Associated Problem(s): Benign prostatic hyperplasia without lower urinary tract symptoms Currently stable, PSA testing stable from 2 years ago. Associated Problem(s): HTN (hypertension) Blood pressure still elevated, had stress testing done today that also revealed elevated blood pressure, try increasing amlodipine to 10 mg, blood pressure is still elevated at next office visit consider adding low-dose furosemide. Had trouble tolerating hydrochlorothiazide in the past with kidney stones and gout documented in this encounter [facility] Work Phone: 01-17-2023 Evaluation + Plan note Associated Problem(s): Benign prostatic hyperplasia without lower urinary tract symptoms Currently stable, PSA testing stable from 2 years ago. [facility] Work Phone: 01-17-2023 Evaluation + Plan note Associated Problem(s): HTN (hypertension) Blood pressure still elevated, had stress testing done today that also revealed elevated blood pressure, try increasing amlodipine to 10 mg, blood pressure is still elevated at next office visit consider adding low-dose furosemide. Had trouble tolerating hydrochlorothiazide in the past with kidney stones and gout [facility] Work Phone: 01-17-2023 History of Present illness Narrative Subjective Reason for Visit: Sandoval Adams is an 67 y.o. male here for a Medicare Wellness visit. Past Medical, Surgical, and Family History reviewed and updated in chart. Reviewed all medications by prescribing practitioner or clinical pharmacist (such as prescriptions, OTCs, herbal therapies and supplements) and documented in the medical record. HPI Was in hospital in the past week, had CP, had stress test today (negative), pressure with radiation to shoulder, radiated to neck with deep breath No low blood sugars since last OV, seen opthalmology in the past year, and no numbness or tingling in feet, skin normal. No headache, shortness of breath, dizziness, lightheadedness, or edema HBP less than 140/90, has not had stones or gout issues in a long time, had been on hydrochlorothiazide in the past Patient Care Team: Maritza Rodriguez MD as PCP - General Maritza Rodriguez MD as PCP - [employer] PCP Review of Systems Constitutional: Negative for activity change, appetite change, fatigue and unexpected weight change. HENT: Negative for ear pain, nosebleeds, rhinorrhea, sneezing and trouble swallowing. Respiratory: Negative for cough, shortness of breath and wheezing. Cardiovascular: Negative for chest pain, palpitations and leg swelling. Gastrointestinal: Negative for abdominal distention, abdominal pain, constipation, diarrhea, nausea and vomiting. Genitourinary: Negative for difficulty urinating. Musculoskeletal: Negative for arthralgias. Skin: Negative for rash. Neurological: Negative for dizziness, light-headedness, numbness and headaches. Hematological: Negative for adenopathy. Psychiatric/Behavioral: Negative for behavioral problems. All other systems reviewed and are negative. Objective Vitals: BP 140/90 Pulse 75 Ht 1.829 m (6') Wt 93.2 kg (205 lb 6.4 oz) SpO2 98% BMI 27.86 kg/m Physical Exam Vitals and nursing note reviewed. Constitutional: General: He is not in acute distress. Appearance: Normal appearance. He is not toxic-appearing. HENT: Head: Normocephalic and atraumatic. Right Ear: Tympanic membrane, ear canal and external ear normal. Left Ear: Tympanic membrane, ear canal and external ear normal. Nose: Nose normal. Mouth/Throat: Mouth: Mucous membranes are dry. Pharynx: Oropharynx is clear. Eyes: Extraocular Movements: Extraocular movements intact. Conjunctiva/sclera: Conjunctivae normal. Pupils: Pupils are equal, round, and reactive to light. Cardiovascular: Rate and Rhythm: Normal rate and regular rhythm. Pulmonary: Effort: Pulmonary effort is normal. Breath sounds: Normal breath sounds. Abdominal: General: Abdomen is flat. Bowel sounds are normal. Palpations: Abdomen is soft. Musculoskeletal: Cervical back: Normal range of motion and neck supple. Skin: General: Skin is warm and dry. Capillary Refill: Capillary refill takes less than 2 seconds. Neurological: General: No focal deficit present. Mental Status: He is alert and oriented to person, place, and time. Mental status is at baseline. Psychiatric: Mood and Affect: Mood normal. Behavior: Behavior normal. Assessment/Plan Problem List Items Addressed This Visit Circulatory HTN (hypertension) Current Assessment & Plan Blood pressure still elevated, had stress testing done today that also revealed elevated blood pressure, try increasing amlodipine to 10 mg, blood pressure is still elevated at next office visit consider adding low-dose furosemide. Had trouble tolerating hydrochlorothiazide in the past with kidney stones and gout Relevant Medications lisinopril 40 mg tablet amLODIPine (Norvasc) 10 mg tablet Other Relevant Orders Follow Up In Primary Care Genitourinary Benign prostatic hyperplasia without lower urinary tract symptoms Current Assessment & Plan Currently stable, PSA testing stable from 2 years ago. Relevant Orders Follow Up In Primary Care Endocrine/Metabolic Diabetes mellitus, type 2 ([facility]) Current Assessment & Plan A1c testing down below 6 now, discontinue glimepiride, continue with current medications. Relevant Medications lisinopril 40 mg tablet Other Relevant Orders Follow Up In Primary Care Other Hyperlipidemia Current Assessment & Plan LDL cholesterol below 100, slightly above 75, no change with medication tolerating statin medicine. Relevant Orders Follow Up In Primary Care Other Visit Diagnoses Routine general medical examination at health care facility - Primary Screening, ischemic heart disease Relevant Orders CT cardiac scoring wo IV contrast Follow Up In Primary Care Patient status post hospitalization in the past week, had some chest pain and discomfort, stress testing today was reported as negative, patient still concerned about risk for cardiac disease check CT cardiac calcium score, if elevated consider evaluation with cardiology, contact the office if recurrence of chest pain or change in exercise tolerance. documented in this encounter [facility] Work Phone: 01-17-2023 Instructions Maritza Rodriguez MD - 01/17/2023 4:00 PM EDT Increase amlodipine to 10 mg a day and get get CT of chest done, call if chest pain returns. Stop glimepiride. documented in this encounter [facility] Work Phone: 01-14-2023 Note Send Summary: Discharge Summary Providers: Provider RoleProvider Name Maritza Edwards Hafiz Note Recipients: Maritza Rodriguez MD Discharge Summary: Admission Date: .14-Jan-2023 03:12:00 Discharge Date: 14-Jan-2023 Attending Physician at Discharge: Shantel Arthur Admission Reason: Chest pain(1) Final Discharge Diagnoses: Chest pain Procedures: none Condition at Discharge: Satisfactory Disposition at Discharge: .Home Vital Signs: T PRBPMAPSpO2 [id number]/7795% Date/Time01/14 3:164/1 9:004 9:004 9:004 9:00 Range(36.4C - 36.4C ) (55 - 71 ) (16 - 19 ) (124 - 174 )/ (74 - 85 ) (93% - 96% ) Date: Weight/Scale Type:Height: 14-Jan-2023 03:1690.9 kg 182.8 cm Physical Exam: Constitutional: Awake and alert; oriented x3 with no apparent distress or respiratory distress Eyes: PERRL, EOMI, clear sclera ENMT: mucous membranes moist, oropharynx clear Head/Neck: Normocephalic; neck supple, no apparent injury, thyroid without mass or tenderness, No JVD, trachea midline, no bruits Respiratory/Thorax: Clear to auscultation bilaterally no wheezes or rhonchi noted Cardiovascular: Regular rate and rhythm; normal S1-S2 with no murmur; no pitting edema and 2+ pulses bilaterally Gastrointestinal: Soft, nontender, nondistended, positive bowel sounds Neurological: Nonfocal, intact senses, motor, response and reflexes, normal strength; cranial nerves II through XII appear intact Psychological: Pleasant affect Hospital Course: This is a 67-year-old male admitted for chest pain. He has a heart score of 5 (H1, E0, A2, R2, T0). Comorbidities include his diabetes, hypertension, hypercholesterolemia, age and his family history. On monitor and EKG with sinus rhythm Chest pain gone completely patient hemodynamically stable denies any complaints at the moment. He really wants to go home. His troponins are unremarkable. Strongly advised him to immediately return if chest pain recurs and called EMS right away if that happens but at this point in time, he is hemodynamically stable and asymptomatic with nondiagnostic EKG and unremarkable troponins, he is really adamant to go home so we will discharge him home at the moment. Advised him with instructions. Also writing prescription for aspirin as well famotidine besides statins to continue. He will resume his pressure medicines. Discussed with staff including correctional case records supervisor who is arranging for outpatient stress test on Monday. He is scheduled appointment with PCP on Monday. No echocardiogram available on weekend so we will defer as outpatient. Again no chest pain or shortness of breath or palpitations or dizziness or leg swelling. Denies any complaints at this point in time. Denies exertional symptoms. No syncope or dizziness or lightheadedness. DC home based on condition at this point in time which is medically stable. Discharge Information and Continuing Care: Lab Results - Pending: None Radiology Results - Pending: None Discharge Instructions: Activity: activity as tolerated. Nutrition/Diet: low fat Follow Up Appointments: Follow-Up Appointment 01: Physician/Dept/Service: follow PCP Call to Schedule in: 1 week Follow-Up Appointment 02: Physician/Dept/Service: follow Cardiology this Monday for stress test Discharge Medications: Home Medication amLODIPine 5 mg oral tablet - 1 tab(s) orally once a day atorvastatin 40 mg oral tablet - 1 tab(s) orally once a day glimepiride 1 mg oral tablet - 1 tab(s) orally once a day pioglitazone-metformin 15 mg-850 mg oral tablet - 1 tab(s) orally 2 times a day lisinopril 40 mg oral tablet - 1 tab(s) orally once a day Aspirin Enteric Coated 81 mg oral delayed release tablet - 1 tab(s) orally once a day Pepcid 20 mg oral tablet - 1 tab(s) orally once a day PRN Medication DNR Status: Code StatusCode Status order at time of discharge: Full Code Electronic Signatures for Addendum Section: Shantel Arthur) (Signed Addendum 14-Jan-2023 10:22) I have attempted to reach cardiology on-call and left a message through answering service for call back to discuss the case with cardiology to be on safe side Electronic Signatures: Shantel Arthur) (Signed 14-Jan-2023 09:58) Authored: Send Summary, Summary Content, Ongoing Care, DNR Status, Note Completion Last Updated: 14-Jan-2023 10:22 by Shantel Arthur) References: 1. Data Referenced From History and Physical 14-Jan-2023 05:39 [facility] 01-14-2023 Note History of Present I llness: Admission Reason: Chest pain HPI: SANDOVAL ADAMS is a 67 year old Male This is a 67-year-old white male whose past medical history is significant for: 1. Type 2 diabetes 2. Hypertension 3. Hypercholesterolemia Patient was in his usual state of health until last night. He said he went out with his family for a little get together and they had dinner. He came home and went to bed. He woke up with a pressure-like sensation in his chest left of his sternum. It radiated to his left shoulder and then he said when he took a deep breath the pain was a little more pronounced and it radiated into his neck. It was a 4-5 out of 10 at its worst it was only a few seconds. No shortness of breath, no nausea or sweats. He got concerned because his uncle just had a stent placed and his brother also just had a coronary stent placed. He came into the ER to be evaluated. He has never had this sensation before. When he presented to the ER he is hypertensive at 170/85 with a pulse of 71 and a respiratory rate of 16. He is 96% on room air and he is afebrile. His white count is 7.3 with no shift and his H&H is 12.2 and 40.9. Platelets are 205,000. BMP is remarkable only for glucose of 138, chloride elevated at 111 and his BUN is elevated at 35. The rest are unremarkable and 2 troponins are 8. Chest x-ray is nonacute. Believe ECG shows sinus bradycardia at [address] no acute [address]-T wave changes. In the emergency room he was given 1 sublingual nitro and 324 mg of aspirin. He has a heart score of 5. He is admitted to the medical service for further evaluation. PAST MEDICAL HISTORY see above PAST SURGICAL HISTORY 1. Remote tonsillectomy 2. Heel spur surgery FAMILY HISTORY Mother with a history of metastatic breast cancer; she also had high blood pressure and cholesterol issues Father with a history of dementia 1 brother alive with a recent coronary stent placement 1 brother alive and well 1 sister alive and well 2 children alive and well SOCIAL HISTORY Patient is a living alone He works for [employer] No tobacco history Very rare alcohol use No drug abuse history Comorbidities: Comorbidites: Comorbid Conditionsdiabetes, hypertension Diabetes TypeType 2 Insulin Dependentno DM Acuity or Statusunknown DM Complicationsnone Allergies: No Known Allergies: Medications Prior to Admission: amLODIPine 5 mg oral tablet: 1 tab(s) orally once a day atorvastatin 40 mg oral tablet: 1 tab(s) orally once a day glimepiride 1 mg oral tablet: 1 tab(s) orally once a day lisinopril-hydrochlorothiazide 20 mg-12.5 mg oral tablet: 1 tab(s) orally once a day pioglitazone-metformin 15 mg-850 mg oral tablet: 1 tab(s) orally 2 times a day lisinopril 20 mg oral tablet: 1 tab(s) orally once a day. Review of Systems: Constitutional: NEGATIVE: Fever, Chills Eyes: NEGATIVE: Blurry Vision, Drainage, Diploplia, Redness, Vision Loss/ Change ENMT: NEGATIVE: Nasal Discharge, Nasal Congestion, Ear Pain, Mouth Pain, Throat Pain Respiratory: NEGATIVE: Dry Cough, Productive Cough, Hemoptysis, Wheezing, Shortness of Breath Cardiac: POSITIVE: Chest Pain; NEGATIVE: Dyspnea on Exertion, Orthopnea, Palpitations, Syncope Gastrointestinal: NEGATIVE: Nausea, Vomiting, Diarrhea, Constipation, Abdominal Pain Genitourinary: NEGATIVE: Discharge, Dysuria, Flank Pain, Frequency, Hematuria Musculoskeletal: NEGATIVE: Decreased ROM, Pain, Swelling, Stiffness, Weakness Neurological: NEGATIVE: Dizziness, Confusion, Headache, Seizures, Syncope Psychiatric: NEGATIVE: Mood Changes, Anxiety Objective: Objective Information: T PRBPMAPSpO2 [id number]/7795% Date/Time01/14 3:164 4: 4:154 4:154 4:15 Range(36.4C - 36.4C ) (58 - 71 ) (16 - 19 ) (140 - 174 )/ (77 - 85 ) (93% - 96% ) Pain reported at 01/14 3:16: 5 = Moderate Physical Exam by System: Constitutional: Awake and alert; oriented x3 with no apparent distress or respiratory distress Eyes: PERRL, EOMI, clear sclera ENMT: mucous membranes moist, oropharynx clear Head/Neck: Normocephalic; neck supple, no apparent injury, thyroid without mass or tenderness, No JVD, trachea midline, no bruits Respiratory/Thorax: Clear to auscultation bilaterally no wheezes or rhonchi noted Cardiovascular: Regular rate and rhythm; normal S1-S2 with no murmur; no pitting edema and 2+ pulses bilaterally Gastrointestinal: Soft, nontender, nondistended, positive bowel sounds Neurological: Nonfocal, intact senses, motor, response and reflexes, normal strength; cranial nerves II through XII appear intact Psychological: Pleasant affect Recent Lab Results: Results: I have reviewed these laboratory results: Coronavirus 2019 by PCR 14-Jan-2023 05:31:00 ResultValue Fluid Source Nasal, Nasopharyngeal Coronavirus 2019,PCR NOT DETECTED R (more content not included)... [facility] 01-14-2023 Hospital Discharge instructions Activity:activity as tolerated.Follow Up Appointment 1:Physician/Dept/Service: follow PCP Dr. Larson to Schedule in: 1 weekScheduled Date/Time: 17-Jan-2023 16:00Location: [address] [place] Up Appointment 2:Physician/Dept/Service: follow Cardiology this Monday for stress test Dr. ArmstronginLocation: [address]Phone Number: [phone] [facility] 06-02-2022 History of Present illness Narrative Patient: Sandoval Adams Date of : 1955 (66 y.o.) PCP: Maritza Rodriguez MD Procedures ASSESSMENT/PLAN: Sandoval Adams 66 y.o. 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 Patient was told to avoid any heavy lifting or pushing. Patient to reappoint in 2 months for repeat x-rays. Assessment & plan notes cannot be loaded without a specified hospital service. SUBJECTIVE: History Since Last Visit: Patient is a 66-year-old male comes in with a stiff soled work shoe. Patient relates the foot is been doing great he is ready get back to work. Review of Systems: Unremarkable OBJECTIVE: Physical Examination: Integument-incisions of the right great toe and heel are well-healed Neuro-intact right foot Musculoskeletal-25 degrees of dorsiflexion and 10 degrees of plantarflexion of the right great toe joint. Patient has minimal swelling of the posterior heel and great toe. Patient's Achilles tendon was intact when I palpated it and he had 5 out of 5 plantarflexion strength of the right foot. Vascular-DP PT pulses are palpable right foot BP (!) 157/82 (BP Location: Left arm, Patient Position: Sitting, BP Cuff Size: Adult) Pulse 73 Temp 98.4 F (36.9 C) (Infrared) Laboratory and Additional Data Reviewed: Reviewed:[id number]} XR Foot Right 3+ Views (Standard) Xray right foot - The 1st metatarsal osteotomy is 95% healed . documented in this encounter [facility] 05-12-2022 History of Present illness Narrative Patient: Sandoval Adams Date of : 1955 (66 y.o.) PCP: Maritza Rodriguez MD Procedures ASSESSMENT/PLAN: Sandoval Adams 66 y.o. male with history of status post Neal bunionectomy about 80% healed and excision of retrocalcaneal heel spur doing well. Venous swelling of the right leg rule out DVT. Plan: I have ordered a stat venous Doppler of the right leg to rule out DVT. I told patient he can walk in the cam walker boot for the next 2 weeks and then try converting over to a stiff soled tennis shoe. I recommended new balance asics or a Center type shoe . patient was told to follow-up in 3 weeks for x-rays. Assessment & plan notes cannot be loaded without a specified hospital service. SUBJECTIVE: History Since Last Visit: Patient is a 66-year-old male who follows up for status post Neal bunionectomy and excision of retrocalcaneal heel spur. Patient relates the right foot and leg have been swollen more than normal. Patient relates he has been out riding in a golf cart watching his family play golf. Patient relates he may have overdone it. Review of Systems: Unremarked OBJECTIVE: Physical Examination: Integument-skin is warm dry and supple no open wounds or infections noted Neuro-intact right Musculoskeletal-swelling of the right leg. Patient has no pain over the posterior heel or first metatarsal on the right foot. Patient has 30 degrees of dorsiflexion and 10 degrees of plantarflexion the first metatarsal phalangeal joint on the right foot. Patient has no pain on the posterior heel and the swelling and scar tissue are improving. Vascular-DP PT pulses are palpable right foot BP (!) 171/84 (BP Location: Left arm, Patient Position: Sitting, BP Cuff Size: Adult) Pulse 73 Temp 98.6 F (37 C) (Infrared) Laboratory and Additional Data Reviewed: Reviewed:[id number]} XR Foot Right 3+ Views (Standard) Xray - 3 views - The 1st metatarsal osteotomy is 80 % healed with screw fixation . Heel spur has been removed documented in this encounter [facility] 04-28-2022 History of Present illness Narrative BunionPatient: Sandoval Adams Date of : 1955 (66 y.o.) PCP: Maritza Rodriguez MD Procedures ASSESSMENT/PLAN: Sandoval Adams 66 y.o. male with history of status post bunionectomy of the right foot about 75% healed and excision of Jose's deformity doing well. Plan: Patient was told to go 1 more week in the cam walker boot and then to convert over to stiff soled tennis shoes. Patient was then told to perform more first MPJ range of motion exercises and continue with the ankle as well. Assessment & plan notes cannot be loaded without a specified hospital service. SUBJECTIVE: History Since Last Visit: Patient is a 66-year-old male seen at the office today status post Neal bunionectomy and excision of Jose deformity the right foot x6 weeks. Patient relates he is doing great without complaints. Patient is ready get back into tennis shoes if possible. Review of Systems: Unremarked OBJECTIVE: Physical Examination: Integument-the incisions are well-healed on the great great toe and posterior heel Neuro-intact Musculoskeletal-patient has about 25 degrees of dorsiflexion first MPJ plantarflexion was unremarkable. Patient does have some swelling but no pain on the posterior aspect the right heel. Patient has 5 out of 5 plantarflexion strength of the right foot Vascular-DP and PT pulse are palpable right foot BP 122/72 (BP Location: Right arm, Patient Position: Sitting, BP Cuff Size: Adult) Pulse 76 Temp 99.3 F (37.4 C) (Infrared) Laboratory and Additional Data Reviewed: Reviewed:[id number]} XR Foot Right 3+ Views (Standard) Xray 3 views - The 1st metatarsal osteotomy is 80% healed with screw fixation documented in this encounter [facility] 04-07-2022 History of Present illness Narrative Patient: Sandoval Adams Date of : 1955 (66 y.o.) PCP: Maritza Rodriguez MD Procedures ASSESSMENT/PLAN: Sandoval Adams 66 y.o. male with history of status post Neal bunionectomy and excision of Jose's deformity on the right foot postop 4 weeks doing well. Plan: Patient's cast was removed, prescribed and dispensed 1 cam walker boot to aid in ambulation for the right foot. Patient was given specific first MPJ and ankle exercises on the right foot to be performed 30 repetitions twice a day. Patient is allowed to put weight on the foot using the cam walker boot. Patient to reappoint in 2 weeks for x-rays. Assessment & plan notes cannot be loaded without a specified hospital service. SUBJECTIVE: History Since Last Visit: Patient is a 66-year-old male status post excision of Jose's deformity and bunion on the right foot x4 weeks. Patient denies any pain patient does relate there is some swelling throughout the arch and heel. Patient's been nonweightbearing with his knee scooter and cast. Review of Systems: Unremarkable OBJECTIVE: Physical Examination: Integument-the incisions on the posterior heel and dorsal medial first MPJ on the right foot are well coapted and healed Neuro-intact right foot Musculoskeletal-patient has some stiffness with first MPJ and ankle range of motion on the right. Minimal pain noted of either surgical site. Patient can plantarflex the right ankle without difficulty. Achilles tendon appears to be intact when palpated on the ankle. Vascular-DP and PT pulses are palpable on the right BP (!) 169/89 (BP Location: Right arm, Patient Position: Sitting, BP Cuff Size: Adult) Pulse 71 Temp 98.1 F (36.7 C) (Oral) Laboratory and Additional Data Reviewed: Reviewed:[id number]} XR Foot Right 3+ Views (Standard) Xray 3 views right foot- there has been removal of the posterior calcaneal spur and correction of bunion with screw fixation documented in this encounter [facility] 03-24-2022 History of Present illness Narrative Patient: Sandoval Adams Date of : 1955 (66 y.o.) PCP: Maritza Rodriguez MD Procedures ASSESSMENT/PLAN: Sandoval Adams 66 y.o. male with history of status post Neal bunionectomy and excision of Jose's deformity right foot 2 weeks postop doing well. Plan: Removed his cast, his stitches and applied a new below-knee nonweightbearing cast for 2 additional weeks. Patient is to return in 2 weeks for x-rays cast removal and will be fitted with a cam walker boot. Assessment & plan notes cannot be loaded without a specified hospital service. 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 Patient had surgery 2 weeks ago and relates he is doing well without complaint. Review of Systems: Type II diabetic OBJECTIVE: Physical Examination: Integument-the right posterior heel and dorsal great toe joint incision is clean dry and intact. There is no redness no drainage no odor no gapping no signs of infection. Neuro-intact bilateral feet Musculoskeletal-decreased pain and swelling of the right heel and great toe joint. No pain with first MPJ range of motion. Patient can plantarflex the right foot without complaint. Patient had no pain in the calf on the right Vascular-DP and PT pulse are palpable on the right foot capillary fill time is less than 3 seconds with the foot being warm to touch BP (!) 143/75 (BP Location: Right arm, Patient Position: Sitting, BP Cuff Size: Adult) Pulse 73 Temp 98.2 F (36.8 C) (Infrared) Laboratory and Additional Data Reviewed: Reviewed:[id number]} XR Foot Right 3+ Views (Standard) Xray 3 views right foot- there has been removal of the posterior calcaneal spur and correction of bunion with screw fixation documented in this encounter [facility] 03-17-2022 History of Present illness Narrative Patient: Sandoval Adams Date of : 1955 (66 y.o.) PCP: Maritza Rodriguez MD Procedures ASSESSMENT/PLAN: Sandoval Adams 66 y.o. male with history of status post Neal bunionectomy and excision of Jose's deformity the right foot 1 week doing well. Plan: Continue nonweightbearing with knee scooter and cast. Patient is to reappoint in 1 week to have cast removed, stitches out and a new cast applied.. Assessment & plan notes cannot be loaded without a specified hospital service. SUBJECTIVE: History Since Last Visit: Patient is a 66-year-old male who had an Neal bunionectomy and a posterior heel spur removed from the right foot. Patient had surgery 1 week ago and relates he is doing well not needing any pain pills. Patient is taking his blood thinner Xarelto daily. Review of Systems: Type II diabetic OBJECTIVE: Physical Examination: Integument-toes 1 through 5 are pink and warm on the right foot Neuro-intact on the toes of the right foot Musculoskeletal-no pain or swelling in the posterior calf or leg. Patient could wiggle toes 1 through 5 the right foot Vascular-P PT pulse are palpable on the right BP (!) 158/81 (BP Location: Left arm, Patient Position: Sitting, BP Cuff Size: Adult) Pulse 71 Temp 98.4 F (36.9 C) (Oral) Laboratory and Additional Data Reviewed: Reviewed:[id number]} XR Foot Right 3+ Views (Standard) Xray 3 views right foot- there has been removal of the posterior calcaneal spur and correction of bunion with screw fixation documented in this encounter [facility] 03-03-2022 History of Present illness Narrative Podiatry Inpatient H&P 03/03/2022 [email or web address] Patient: Sandoval Adams Date of : 1955 (66 y.o.) PCP: Maritza Rodriguez MD ASSESSMENT/PLAN: Sandoval Adams 66 y.o. male with history of Jose's deformity and bunion of the right foot. 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 Patient will need to be turned back over on the cart and undergo an Neal bunionectomy in the supine position. Patient was explained risks and complications of all the surgery which include infection, bleeding, numbness, delayed healing, swelling, scar, recurrence and DVT. I did alert patient he is good to be off work for at least 8 to 10 weeks. Patient can return back but may need to start with light duty. I cautioned patient it can take up to a year for the heel pain problem to get better and may never be 100%. Also asked patient to get a glucometer and test strips to make sure he is checking his blood sugars daily. After answering all patient's questions patient like to proceed with surgery at this time. The consent form was signed preoperatively. Assessment & plan notes cannot be loaded without a specified hospital service. SUBJECTIVE: Chief Complaint/Reason for Visit: Patient complains of painful Jose's deformity and bunion of the right foot. History of Present Illness: Sandoval Adams is a 66 y.o. male presenting from home with complaint of painful Jose's deformity of the right foot along with bunion. Patient has been undergoing conservative measures for his heel pain problems for over 3 to 4 months. Patient is ready to have the surgery on both problems at this point. Review of Systems: Integumentary:No skin rash All other systems reviewed and negative other than HPI Past Medical History: Diagnosis Date Diabetes (HCC) Diabetes mellitus (HCC) Gout attack Right ankle Heel spur Hyperlipidemia Hypertension Past Surgical History: Procedure Laterality Date TONSILLECTOMY Family History Problem Relation Age of Onset Cancer Mother Dementia Father Diabetes Brother Heart attack Brother Social History Tobacco Use Smoking Status Never Smokeless Tobacco Never Additional History Comments: None Allergies: Patient has no known allergies. Current HOME Medications: Outpatient Medications Marked as Taking for the 03/03/22 encounter (Office Visit) with Chris Arzola DPM: amLODIPine (NORVASC) 5 MG tablet, Take 5 mg by mouth daily evening . atorvastatin (LIPITOR) 40 MG tablet, Take 40 mg by mouth daily evening . glimepiride (AMARYL) 2 MG tablet, Take 2 mg by mouth daily evening . lisinopriL (PRINIVIL,ZESTRIL) 40 MG tablet, Take 40 mg by mouth morning . pioglitazone-metFORMIN (ACTOPLUS MET) 15-850 mg per tablet, Take 1 tablet by mouth Morning and evening . OBJECTIVE: Physical Examination: Integument-there are some mild erythema on the posterior aspect of the right heel and medial side of the first metatarsal phalange joint. Neuro-intact right Musculoskeletal-medial bony prominence of the first metatarsal head with a lateral deviated hallux of the right foot. No pain with first MPJ range of motion. Patient has a bony prominence in the posterior aspect the right heel at the level of the insertion of the Achilles tendon. Patient has 5 out of 5 plantarflexion strength of the right Vascular-DP and PT pulses are palpable right BP (!) 157/74 (BP Location: Left arm, Patient Position: Sitting, BP Cuff Size: Adult) Pulse 71 Temp 98.4 F (36.9 C) (Infrared) Laboratory and Additional Data Reviewed: ECG 12 Lead Normal sinus rhythm Normal ECG Confirmed by Jesus Cardoza MD ([id number]) on 02/24/2022 8:09:11 AM Reviewed 03/03/22 8:09 AM: Medications documented in this encounter [facility] 02-16-2022 History of Present illness Narrative [facility] OUTPATIENT REHABILITATION DAILY TREATMENT NOTE Today's Date 02/16/2022 Patient Name: Sandoval Adams Date of : 1955 Current Visit #: 6 Authorized Visits: 199 Case Name: Right Heel Pain History: Pre-Treatment Pain Scale: no change Functional Diagnosis: 1. Jose's deformity of right heel Clinical Information: Subjective: Pt denies change in med hx and reports no change in sx since beginning PT. Objective Ankle/Foot Right Ankle/Foot Range of Motion: Dorsiflexion Active: 14 Plantar Flexion Active: 52 Inversion Active: 30 Eversion Active: 26 Muscle Strength: DorsiFlexion: 5 Plantar Flexion: 5 Inversion: 5 Eversion: 5 Other Sensation: normal Swelling: Positive FOTO: 64 Treatments: Physical Therapy Exercise Log - 02/16/22 1547 OTHER Precautions/Contraindications Supervising PT: Madi Baez Visit 5: 3:50 - 4:30 Therapeutic Exercise (46808) Intervention Scifit L3 x 5 min Parameters gastroc stretch on wedge/soleus stretch on pro stretch 3x20'' Intervention -- Parameters GTB resisted DF x15 - NT Intervention STM 8' along haglunds Ultrasound Intervention right posterior heel / achilles Parameter 3 MHz, 50% 1.2 W/cm2 x 8 mins PT Treatment Times Therex Total Time 24 Manual Therapy Total Time 8 Ultrasound Total Time 8 Direct Treatment Time 40 Total Treatment Time 40 Goals: Physical Therapy Ortho Goals: MOBILITY: Patient will be able to ambulate for 1 hour in community without difficulty in 4 weeks. MOBILITY: Patient will be able to ambulate on uneven surfaces without difficulty in 4 weeks. IMPAIRMENT: Improve pain from 6/10 to <3/10 during prolonged walking in 4 weeks OTHER: Patient will increase FOTO score from 69 to at least 75 to show MDC/MCII and expected functional outcome in 4 weeks. OTHER: Patient will be able to properly demonstrate independence with HEP in 1 week. Patient Education: Quality of movement and Diagnosis and recovery specific education with patient verbalized understanding. Assessment: Patient had an expected response to treatment. Skilled Intervention demonstrated by modifications of treatment per exercise log including assessment of patient's response and modalities as indicated and safety interventions per exercise log. Progress towards goals as expected. Plan: Hold pending follow up with MD Andrew Bowen PT State License, [id number] documented in this encounter [facility] 02-14-2022 History of Present illness Narrative [facility] OUT[facility]IENT REH[facility] DAILY TREATMENT NOTE Today's Date 02/14/2022 Patient Name: Sandoval Adams Date of : 1955 Current Visit #: 5 Authorized Visits: 199 Case Name: Right Heel Pain History: Pre-Treatment Pain Scale: 6 Symptoms: stabilized Functional Diagnosis: 1. Jose's deformity of right heel Clinical Information: Subjective: Pt reports no changes in pain and symptoms. Heel stays irritated. Objective Treatments: Physical Therapy Exercise Log - 02/14/22 1552 OTHER Precautions/Contraindications Supervising PT: Madi Notes Visit 4: 3:52 - 4:27 Therapeutic Exercise (44010) Intervention Scifit L3 x 5 min Parameters seated gastroc/soleus stretches 3x20'' Intervention towel scrunches x2min NT Parameters GTB resisted DF x15 Intervention STM 8' along haglunds Ultrasound Intervention right posterior heel / achilles Parameter 3 MHz, 50% 1.2 W/cm2 x 8 mins PT Treatment Times Therex Total Time 27 Ultrasound Total Time 8 Direct Treatment Time 35 Total Treatment Time 35 Goals: Physical Therapy Ortho Goals: MOBILITY: Patient will be able to ambulate for 1 hour in community without difficulty in 4 weeks. MOBILITY: Patient will be able to ambulate on uneven surfaces without difficulty in 4 weeks. IMPAIRMENT: Improve pain from 6/10 to <3/10 during prolonged walking in 4 weeks OTHER: Patient will increase FOTO score from 69 to at least 75 to show MDC/MCII and expected functional outcome in 4 weeks. OTHER: Patient will be able to properly demonstrate independence with HEP in 1 week. Patient Education: Quality of movement with patient demonstrated understanding. Post-Treatment Pain Scale: 6 Assessment: Patient had an expected response to treatment. Skilled Intervention demonstrated by modifications of treatment per exercise log including increased load and safety interventions per exercise log. Progress towards goals as expected. Plan for Next Visit: Treatment Visit with focus on US and pain management Peng Webb PTA STATE LICENSE, [id number] documented in this encounter [facility] 02-10-2022 History of Present illness Narrative [facility] OUT[facility] REH[facility] DAILY TREATMENT NOTE Today's Date 02/10/2022 Patient Name: Sandoval Adams Date of : 1955 Current Visit #: 4 Authorized Visits: 199 Case Name: Right Heel Pain History: Pre-Treatment Pain Scale: no change Symptoms: no change Functional Diagnosis: 1. Jose's deformity of right heel Clinical Information: Subjective: PT denies change in med hx. He states the pain doesn't seem to be improving but is not getting any worse. Objective Treatments: Physical Therapy Exercise Log - 02/10/22 1602 OTHER Precautions/Contraindications Supervising PT: Madi Baez Visit 3: 4:02 - 4:47 Therapeutic Exercise (87795) Intervention Scifit L3 x 5 min Parameters seated gastroc/soleus stretches 3x20'' Intervention towel scrunches x2min NT Parameters GTB resisted DF x15 Intervention STM 8' along haglunds Ultrasound Intervention right posterior heel / achilles Parameter 3 MHz, 50% 1.2 W/cm2 x 8 mins PT Treatment Times Therex Total Time 29 Manual Therapy Total Time 8 Ultrasound Total Time 8 Direct Treatment Time 45 Total Treatment Time 45 Goals: Physical Therapy Ortho Goals: MOBILITY: Patient will be able to ambulate for 1 hour in community without difficulty in 4 weeks. MOBILITY: Patient will be able to ambulate on uneven surfaces without difficulty in 4 weeks. IMPAIRMENT: Improve pain from 6/10 to <3/10 during prolonged walking in 4 weeks OTHER: Patient will increase FOTO score from 69 to at least 75 to show MDC/MCII and expected functional outcome in 4 weeks. OTHER: Patient will be able to properly demonstrate independence with HEP in 1 week. Patient Education: Quality of movement and Diagnosis and recovery specific education with patient verbalized understanding. Post-Treatment Pain Scale: about the same Assessment: Patient had an expected response to treatment. Skilled Intervention demonstrated by modifications of treatment per exercise log including assessment of patient's response and modalities as indicated and safety interventions per exercise log. Progress towards goals as expected. Plan for Next Visit: Treatment Visit with focus on pain control Andrew Bowen PT State License, [id number] documented in this encounter [facility] 02-08-2022 History of Present illness Narrative [facility]IENT REH[facility] DAILY TREATMENT NOTE Today's Date 02/08/2022 Patient Name: Sandoval Adams Date of : 1955 Current Visit #: 3 Authorized Visits: 199 Case Name: Right Heel Pain History: Pre-Treatment Pain Scale: 3 Symptoms: gradually worsened Functional Diagnosis: 1. Jose's deformity of right heel Clinical Information: Subjective: his ankle is sore by the end of the day wearing his boots and rubbing on it. Objective Initiated STM along haglunds with min tenderness increase. Treatments: Physical Therapy Exercise Log - 02/08/22 1635 OTHER Precautions/Contraindications Supervising PT: Madi Notes Visit 2 4:00-4:35 Therapeutic Exercise (04680) Intervention Scifit L3 x 7 min Parameters seated gastroc/soleus stretches 3x20'' Intervention towel scrunches x2min NT Parameters GTB resisted in/eversion x 1min NT Intervention STM 8' along haglunds Ultrasound Intervention right posterior heel / achilles Parameter 3 MHz, 50% 1.2 W/cm2 x 8 mins PT Treatment Times Therex Total Time 18 Manual Therapy Total Time 8 Ultrasound Total Time 8 Direct Treatment Time 34 Total Treatment Time 34 Goals: Physical Therapy Ortho Goals: MOBILITY: Patient will be able to ambulate for 1 hour in community without difficulty in 4 weeks. MOBILITY: Patient will be able to ambulate on uneven surfaces without difficulty in 4 weeks. IMPAIRMENT: Improve pain from 6/10 to <3/10 during prolonged walking in 4 weeks OTHER: Patient will increase FOTO score from 69 to at least 75 to show MDC/MCII and expected functional outcome in 4 weeks. OTHER: Patient will be able to properly demonstrate independence with HEP in 1 week. Patient Education: Quality of movement with patient demonstrated understanding. Post-Treatment Pain Scale: 2 Assessment: Patient had an expected response to treatment. Skilled Intervention demonstrated by modifications of treatment per exercise log including increased intensity and safety interventions per exercise log. Progress towards goals as expected. Plan for Next Visit: Treatment Visit with focus on stretches and pain control Karina Rao PTA STATE LICENSE, [id number] documented in this encounter [facility] 01-27-2022 History of Present illness Narrative [facility] OUTPATIENT REHABILITATION DAILY TREATMENT NOTE Today's Date 01/27/2022 Patient Name: Sandoval Adams Date of : 1955 Current Visit #: 2 Authorized Visits: 199 Case Name: Right Heel Pain History: Pre-Treatment Pain Scale: 2 Symptoms: stabilized Functional Diagnosis: 1. Jose's deformity of right heel Clinical Information: Subjective: Pt reports avg pain Objective Reviewed HEP, added scifit and ended with US Treatments: Physical Therapy Exercise Log - 01/27/22 1605 OTHER Precautions/Contraindications Supervising PT: Madi Notes Visit 7936-0713 Therapeutic Exercise (55563) Intervention Scifit L3 x 7 min Parameters seated gastroc/soleus stretches 3x20'' Intervention towel scrunches x2min Parameters GTB resisted in/eversion x 1min Ultrasound Intervention right posterior heel / achilles Parameter 3 MHz, 50% 1.2 W/cm2 x 8 mins PT Treatment Times Therex Total Time 30 Ultrasound Total Time 8 Direct Treatment Time 38 Total Treatment Time 43 Goals: Physical Therapy Ortho Goals: MOBILITY: Patient will be able to ambulate for 1 hour in community without difficulty in 4 weeks. MOBILITY: Patient will be able to ambulate on uneven surfaces without difficulty in 4 weeks. IMPAIRMENT: Improve pain from 6/10 to <3/10 during prolonged walking in 4 weeks OTHER: Patient will increase FOTO score from 69 to at least 75 to show MDC/MCII and expected functional outcome in 4 weeks. OTHER: Patient will be able to properly demonstrate independence with HEP in 1 week. Patient Education: Verbal HEP with patient verbalized understanding. Post-Treatment Pain Scale: 2 Assessment: Patient had an expected response to treatment. Skilled Intervention demonstrated by modifications of treatment per exercise log including assessment of patient's response and safety interventions per exercise log. Progress towards goals as expected. Plan for Next Visit: Treatment Visit with focus on progressing as tolerated Maritza Motta PTA STATE LICENSE, [id number] documented in this encounter [facility] 01-20-2022 History of Present illness Narrative [facility] OUTPATIENT REHABIL[facility]ATION Evaluation Today's Date 01/20/2022 Patient Name: Sandoval Adams Date of : 1955 Case Name: Right Heel Pain Functional Diagnosis: 1. Jose's deformity of right heel Clinical Information: Subjective Referring Diagnosis: Jose's Deformity of Right Heel Follow-up with physician: 02/17/2022 History of Present Illness Subjective History: Pt reports c/o chronic right posterior heel pain. He reports no known injury and states he has been dealing with his current symptoms off and on for a while. He reports constant pain at this time. He denies numbness/tingling in the foot and toes. He has been wearing heel cups and completing michael stretches as advised by DPM. Previous Imaging: X-ray Pain Scale Pain location: ankle/foot Pain at highest: 6/10 Aggravating factors: pressure to the back of the heel Easing factors: soaking in cold water, Ibuprofen 24 Hour Symptom Behavior Morning Pain: gradual End of day pain: worse Personal Goals: Decrease pain Functional Mobility Status Current Mobility Status: Community: no device Current Activity Level: active Social Support: Druze, social, or cultural considerations to be made aware of before starting treatment: No Home Environment Current Home Environment: Setup: single story house Activities of Daily Living: independent with all Instrumental Activities of Daily Livingindependent with all Sleep Assessment Sleep disturbance: no Sleep Disturbance Red Flags: None Comments: Barriers to Care: None Druze, social, or cultural considerations to be made aware of before starting treatment: No Ankle/Foot Right Ankle/Foot Range of Motion: Dorsiflexion Active: 14 Plantar Flexion Active: 55 Inversion Active: 35 Eversion Active: 16 Muscle Strength: DorsiFlexion: 5 Plantar Flexion: 5 Inversion: 5 Eversion: 5 Special Tests Anterior Drawer: Negative Talar Tilt: Negative Levin's: Negative Squeeze: Negative Other Sensation: normal Swelling: Positive FOTO: 69 Treatments: Physical Therapy Exercise Log - 01/20/22 1632 OTHER Precautions/Contraindications Supervising PT: Madi Notes Eval: 4:02 - 4:42 Therapeutic Exercise (48276) Intervention provided written HEP handouts consisting of the following: Parameters seated gastroc/soleus stretches Intervention towel scrunches Parameters GTB resisted in/eversion Ultrasound Intervention right posterior heel / achilles Parameter 3 MHz, 50% 1.2 W/cm2 x 8 mins PT Treatment Times Ultrasound Total Time 8 Direct Treatment Time 8 Total Treatment Time 42 Goals: Physical Therapy Ortho Goals: MOBILITY: Patient will be able to ambulate for 1 hour in community without difficulty in 4 weeks. MOBILITY: Patient will be able to ambulate on uneven surfaces without difficulty in 4 weeks. IMPAIRMENT: Improve pain from 6/10 to <3/10 during prolonged walking in 4 weeks OTHER: Patient will increase FOTO score from 69 to at least 75 to show MDC/MCII and expected functional outcome in 4 weeks. OTHER: Patient will be able to properly demonstrate independence with HEP in 1 week. CPT Code 34677 Low 17950 Moderate 04595 High History 0 1-2 3+ Comorbidities: DM and HTN, Personal factors: chronicity or severity of the current condition Examination of body systems (elements of body structures & functions, activity limitations, and/or participation restrictions) 1-2 elements 3+ elements 4+ elements See below clinical impression Clinical Presentation Stable Evolving Unstable As evidenced by reproduction of or changes in symptoms with certain movements and pt report of overall worsening of symtpoms over time Decision Making Low (FOTO >/= 69) Moderate (FOTO 34 - 68) High (FOTO </= 33) FOTO score= 69 Pt is a 66 y.o. male who presents to PT services with c/o right heel pain. Upon assessment, pt has been found with the following impairments: pain and swelling. 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 The pt would benefit from skilled PT services focused on the above listed impairments and limitations in order to safely progress pt to their desired level of function. Pt to be discharged from OP PT services if/when goals are met, if they fail to make progress with conservative management in PT, if their level of progress plateaus, or if they do not maintain compliance with attendance or HEP. At this time, it is my clinical judgment that services are medically necessary. Plan of Care Frequency of Visits: 2 times per week Duration: 4 weeks Interventions: Therapeutic Exercise (82365), Neuromuscular Re-Education (84220), Manual Therapy (08499), Therapeutic/ Functional Activities (09518), Hot/Cold Pack (55471), Ultrasound (94781) and Vasopneumatic (16852) Rehab Potential: fair Suicide Screen Signs and Symptoms of Abuse/Neglect: No Actions Taken: No Suicide Risk: Does the patient feel like ending their life today?No Actions Taken: No Patient Education Provided Pt was educated on the benefits of therapy and importance of compliance with sessions and HEP for rehabilitation. Pt was also educated on treatment diagnosis, POC, and frequency/duration of treatment. Andrew Bowen PT State License, [id number] documented in this encounter [facility] 12-23-2021 History of Present illness Narrative Patient: Sandoval Adams Date of : 1955 (66 y.o.) PCP: Maritza Rodriguez MD Procedures ASSESSMENT/PLAN: Sandoval Adams 66 y.o. 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 Plan: I instructed patient on stretching out the Achilles tendon Prescribed and dispensed 1 pair of heel cushions to aid in ambulation. Prescribed a Medrol Dosepak to help with the pain and swelling. Patient was instructed to keep an eye on his diabetic blood sugars if they go up to stop it. Patient to reappoint in 2 weeks if not better we may consider a cam walker boot. Assessment & plan notes cannot be loaded without a specified hospital service. SUBJECTIVE: History Since Last Visit: Patient is a 66-year-old male who was concerned he was getting gout on the posterior aspect of his right heel. Patient relates been going on for about 3 weeks. He has been taking ibuprofen and drinking fair juice but unfortunately the enlargement on the back of the heel has not gotten better. Review of Systems: Diabetic well controlled, history of gout OBJECTIVE: Physical Examination: Integument-skin is warm dry and supple in the posterior aspect of the right heel. Neuro-intact right foot Musculoskeletal-a posterior bony prominence where the Achilles tendon attaches to the right calcaneus. Patient had no pain in the Achilles tendon watershed area. Patient could plantarflex the right foot without difficulty. Vascular-DP and PT pulses are palpable on the right foot BP 127/76 (BP Location: Right arm, Patient Position: Sitting, BP Cuff Size: Adult) Pulse 71 Temp 98.1 F (36.7 C) (Oral) Laboratory and Additional Data Reviewed: Reviewed:[id number]} XR Ankle Right 3+ Views (Standard) Narrative: EXAMINATION: XR ANKLE RIGHT 3+ VIEWS (STANDARD) HISTORY: M, 65 y/o , medial malleolar pain COMPARISON: 11/06/2017 TECHNIQUE: Three views of the right ankle are performed. FINDINGS: There is diffuse soft tissue edema at the ankle.There is a corticated density adjacent to the medial malleolus suggesting remote trauma. This is unchanged from the prior study.There is no acute fracture. There is a plantar calcaneal spur and an enthesophyte at the insertion of the Achilles tendon. There is increased density in the pre Achilles fat pad is which may represent inflammation. The ankle mortise is preserved. Impression: Diffuse soft tissue edema. No acute bony abnormality. Workstation ID: [id number] documented in this encounter [facility] 07-22-2021 History of Present illness Narrative No low blood sugars since last OV, seen opthalmology in the past year, and no numbness or tingling in feet, skin normal.No headache, chest pain, shortness of breath, dizziness, lightheadedness, or edemahad surgery on right foot for bunion [facility] Work Phone: 04-22-2021 History of Present illness Narrative Patient: Sandoval Adams Date of : 1955 (65 y.o.) PCP: Maritza Rodriguez MD ASSESSMENT/PLAN: Sandoval Adams 65 y.o. male with history of gout of the right ankle resolved. Tinea infection of the right foot and left hand. Plan: I discussed with patient applying Lotrisone cream to his right foot and left hand twice daily which was prescribed today. Patient was also to follow a strict diet for gout. Patient to call if the tinea infection is not resolved in 30 days if we do not hear from him I recommend a yearly exam for his diabetic feet. Assessment & plan notes cannot be loaded without a specified hospital service. SUBJECTIVE: History Since Last Visit: Patient returns to the office for follow-up of right ankle gout attack. Patient relates that has resolved no problems since he is taken his allopurinol. Patient's last uric acid was 6.4. Patient does give history of dry scaly skin that itches on the right foot and left hand. Review of Systems: Swelling resolved right OBJECTIVE: Physical Examination: Integument-there are small vesicles and dry scaly skin between the toes 1 through 5 on the right foot as well as throughout the arch. Patient also has similar changes ulnar surface of the left Neuro-intact bilateral Musculoskeletal-redness warmth and swelling are resolved in the right ankle no pain with ankle subtalar midtarsal joint range of motion Vascular-palpable bilateral bilateral BP 123/71 (BP Location: Right arm) Pulse 82 Temp 97 F (36.1 C) (Infrared) Ht 6' Wt 93 kg (205 lb) BMI 27.80 kg/m Laboratory and Additional Data Reviewed: Reviewed:[id number]} XR Ankle Right 3+ Views (Standard) Narrative: EXAMINATION: XR ANKLE RIGHT 3+ VIEWS (STANDARD) HISTORY: M, 65 y/o , medial malleolar pain COMPARISON: 11/06/2017 TECHNIQUE: Three views of the right ankle are performed. FINDINGS: There is diffuse soft tissue edema at the ankle.There is a corticated density adjacent to the medial malleolus suggesting remote trauma. This is unchanged from the prior study.There is no acute fracture. There is a plantar calcaneal spur and an enthesophyte at the insertion of the Achilles tendon. There is increased density in the pre Achilles fat pad is which may represent inflammation. The ankle mortise is preserved. Impression: Diffuse soft tissue edema. No acute bony abnormality. Workstation ID: [id number] documented in this encounter [facility] 02-14-2021 Emergency department Note Pt c/o right ankle and right heel pain x 3 days. Reports 'it feels just like a hot poker'. Denies injury ED PROVIDER NOTE [facility] EMERGENCY DEPART[facility] NAME: Sandoval Adams AGE: 65 y.o. : 1955 VISIT DATE: 02/14/2021 CSN: [id number] PCP: Physician No Chief Complaint Patient presents with Ankle Pain Chief complaint ankle pain History of present illness this is 65-year-old male who is here with medial malleolus pain that started on Monday progressively getting worse initially started at the heel. States that he had heel spur on the left foot many years ago. And is here with discomfort rated moderate severity took some ibuprofen prior to arrival. He was triaged to room 1 noted have blood pressure 158/99 pulse 91 respirate 18 pulse ox of 96% temp 9898. He denies history of congestive heart failure chest pain palpitations. Past Medical History: Diagnosis Date Diabetes mellitus (HCC) Hypertension Past Surgical History: Procedure Laterality Date TONSILLECTOMY History reviewed. No pertinent family history. Social History Socioeconomic History Marital status: Spouse name: Not on file Number of children: Not on file Years of education: Not on file Highest education level: Not on file Occupational History Not on file Social Needs Financial resource strain: Not on file Food insecurity Worry: Not on file Inability: Not on file Transportation needs Medical: Not on file Non-medical: Not on file Tobacco Use Smoking status: Never Smoker Smokeless tobacco: Never Used Substance and Sexual Activity Alcohol use: Yes Comment: occasional Drug use: Not on file Sexual activity: Not on file Lifestyle Physical activity Days per week: Not on file Minutes per session: Not on file Stress: Not on file Relationships Social connections Talks on phone: Not on file Gets together: Not on file Attends cheondoism service: Not on file Active member of club or organization: Not on file Attends meetings of clubs or organizations: Not on file Relationship status: Not on file Other Topics Concern Not on file Social History Narrative Not on file Previous Medications Medication Sig amLODIPine (NORVASC) 10 MG tablet Take 5 mg by mouth daily . atorvastatin (LIPITOR) 40 MG tablet Take 40 mg by mouth daily . glimepiride (AMARYL) 2 MG tablet Take 2 mg by mouth every morning before breakfast . lisinopriL-hydrochlorothiazide (PRINZIDE,ZESTORETIC) 20-12.5 mg per tablet Take 1 tablet by mouth daily . pioglitazone-metFORMIN (ACTOPLUS MET) 15-850 mg per tablet Take 1 tablet by mouth . No Known Allergies Review of Systems All other systems reviewed and are negative. Patient Vitals for the past 24 hrs: BP Temp Temp src Pulse Resp SpO2 Height Weight 02/14/21 1805 (!) 158/99 99.8 F (37.7 C) Temporal 91 18 96 % 6' 95.3 kg (210 lb) Physical Exam Vitals signs and nursing note reviewed. Constitutional: General: He is in acute distress. Appearance: He is normal weight. HENT: Head: Normocephalic. Nose: Nose normal. Mouth/Throat: Mouth: Mucous membranes are moist. Eyes: Extraocular Movements: Extraocular movements intact. Pupils: Pupils are equal, round, and reactive to light. Musculoskeletal: Comments: Examination of the right ankle reveals tenderness of the medial malleoli slight swelling and edema is noted as well as on the right lateral malleoli. Plantar flexion dorsiflexion are intact there is no evidence of Yoder sign. Neurological: Mental Status: He is alert. Laboratory & Radiographic Imaging (if done): No results found for this visit on 02/14/21. XR Ankle Right 3+ Views (Standard) Final Result Diffuse soft tissue edema. No acute bony abnormality. Workstation ID: [id number] Procedures MDM Number of Diagnoses or Management Options Acute right ankle pain: new, needed workup Calcaneal spur, unspecified laterality: new, needed workup Diagnosis management comments: Patient examination revealed negative Yoder sign doubt that this is gout exacerbation however looking at the x-ray there is a cortical lesion that suggests remote trauma just distal inferior to the medial malleoli which may be causing this gentlemen's pain and also heel spur patient was given a shot of Toradol Binh wrap ankle splint crutches and referral to Dr. Pollard Amount and/or Complexity of Data Reviewed Tests in the radiology section of CPT : ordered and reviewed Risk of Complications, Morbidity, and/or Mortality Presenting problems: high Diagnostic procedures: moderate Management options: low Patient Progress Patient progress: improved . Clinical Impression: 1. Acute right ankle pain 2. Calcaneal spur, unspecified laterality ED Disposition ED Disposition Condition Comment Discharge Stable Sandoval Light discharged to home/self care in stable condition. Follow-up Information 1. Rizwan Zamarripa MD. Specialty: Orthopedic Surgery [address] [place] [address] Contact information for after-discharge care Follow-up information has not been specified. New Prescriptions ketorolac (TORADOL) 10 mg tablet Take 1 (one) tablet (10 mg total) by mouth every 6 (six) hours as needed . Yamel Blanco MD 02/14/21 1832 documented in this encounter [facility] 02-14-2021 Hospital Discharge instructions Yamel Blanco MD - 02/14/2021 Please visit [email or web address] and search for a Primary Care provider near your address. You may also call [phone] or [phone] to speak with a member service representative to schedule an appointment. [facility] [address] [place] [address] Phone [phone] ( Dr.Edward Faulkner, Dr. Brannon Jiang) [facility] [address] [facility] [address] ( Dr. Nik Angelo, Dr. Xavier Lan) [facility] [address] [facility] [address] [facility] [address] ( Dr. Imani Reynaga, Dr. Geovanna Montes, Dr. Riya Herrera) [facility] [address] [facility] [address] ( Dr. Araceli Dwyer) [facility] [address] [facility] 2nd Floor Located Within [facility] [address] (Dr. Ori Barksdale, Dr. Jocelyn Beach, Dr. Karissa Garcia) [facility] [address] [facility] [address] (Dr. Ronald Bhatti) [facility] [address] [address] (Dr. Douglas Bazzi) [facility] [address] [address] (Dr. Serjio Bobo, Dr. Robbie Paulino [facility] [email or web address] Please call to schedule an appointment or visit patient portal Medical: [phone] Dental: [phone] [facility] [phone] Behavioral Health: [phone] [facility]: [phone] [facility]: [phone] [facility]: [phone] [facility]: [phone] [facility]: [phone] [facility]: [phone] [facility]: [phone] [facility]: [phone] [place] [address] The following attachments cannot be sent through Care Everywhere.Heel Pain (Pashto)Foot Pain (Pashto)Tendon Injury (Tendinopathy) (Pashto)documented in this encounter [facility] 01-08-2021 History of Present illness Narrative Patient is here for 4 mos/PSA...TRUS Path report on 01/08/21 showed atypical proliferation and high grade prostatic intraepithelial neoplasia. Most recent PSA was 5.31 on 06/05..Prior PSA was 6.67 on 11/2020. Prior PSA was 4.75 on 11/2019. Prior PSA was 4.80 on 11/2018. Prior PSA was 5.43 on 11/2017. No fhx of prostate ca. Denies bone pain. Denies weight loss. BPH sx are mild and stable. Denies urgency and frequency. Denies dysuria. Denies hematuria. Nocturia x1. No medication for the prostate. Patient has hx of kidney stones. No sx for a long time.Denies flank pain..Denies F/C..Denies N/V... ED is chronic. Cialis PRN..seems like the [employer] is not working.. [id number] Work Phone: 11-16-2020 History of Present illness Narrative Patient is here for elevated PSA consult . Most recent PSA was 6.67 on 11/2020. Prior PSA was 4.75 on 11/2019. Prior PSA was 4.80 on 11/2018. Prior PSA was 5.43 on 11/2017. Never had a bx of the prostate. No fhx of prostate ca. Denies bone pain. Denies weight loss. BPH sx are mild and stable. Denies urgency and frequency. Denies dysuria. Denies hematuria. Nocturia x1. No medication for the prostate. Patient has hx of kidney stones. No sx for a long time. ED is chronic. Cialis PRN. [id number] Work Phone: 07-05-2020 History of Present illness Narrative No low blood sugars since last OV, seen opthalmology in the past year, and no numbness or tingling in feet, skin normal.No headache, chest pain, shortness of breath, dizziness, lightheadedness, or edemachanged jobsloosing weight, worried about wifeno GERD, or bowel issues [facility] Work Phone: 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 Diagnosis Bone spur of posterior portion of right calcaneus- Primary Calcaneal spur of right foot Bone spur of posterior portion of right calcaneus documented in this encounter [facility] [facility] Jose's deformity of right heel [facility] Jose's deformity of right heel- [facility] Jose's deformity of right heel- [facility] Diagnosis Jose's deformity of right heel- [facility] Diagnosis Jose's deformity of right heel- [facility] Diagnosis Jose's deformity of right heel- Primary [facility] Diagnosis Pre-op exam- [facility] Diagnosis Pre-op exam Hallux valgus, right Jose's deformity of right heel Hallux valgus, right- Primary Jose's deformity of right heel Pre-op exam Jose's deformity of right heel Hallux valgus, right [facility] Diagnosis Jose's deformity of right heel- Primary History of bunionectomy of right great toe Jose's deformity of right heel History of bunionectomy of right great toe [facility] Diagnosis No post-op complications- Primary History of bunionectomy of right great toe Jose's deformity, right [facility] Diagnosis No post-op complications- Primary History of bunionectomy of right great toe Jose's deformity, right [facility] Diagnosis History of bunionectomy of right great toe- Primary No post-op complications [facility] Diagnosis Right foot pain- Primary Pain in soft tissues of limb History of bunionectomy of right great toe [facility] Diagnosis Right foot pain- Primary Pain in soft tissues of limb S/P bunionectomy Other postprocedural status Right leg swelling [facility] Diagnosis Right foot pain- Primary Pain in soft tissues of limb History of bunionectomy of right great toe [facility]* Constitutional: Awake and alert; oriented x3 with no apparent distress or respiratory distressEyes:PERRL, EOMI, clear scleraENMT: mucous membranes moist, oropharynx clearHead/Neck: Normocephalic; neck supple, no apparent injury, thyroid without mass or tenderness, No JVD, trachea midline, no bruitsRespiratory/Thorax: Clear to auscultation bilaterally no wheezes or rhonchi notedCardiovascular: Regular rate and rhythm; normal S1-S2 with no murmur; no pitting edema and 2+ pulses bilaterallyGastrointestinal: Soft, nontender, nondistended, positive bowel soundsNeurological: Nonfocal, intact senses, motor, response and reflexes, normal strength; cranial nerves II through XII appear intactPsychological: Pleasant affect [facility] Routine general medical examination at health care facility- Primary Routine general medical examination at a health care facility Hypertension, unspecified type Benign prostatic hyperplasia without lower urinary tract symptoms Type 2 diabetes mellitus without complication, without long-term current use of insulin (CMS/HCC) Mixed hyperlipidemia Screening, ischemic heart disease Screening for ischemic heart disease documented in this encounter [facility] Work Phone: Evaluation note* Diagnosis Prostate cancer screening- Primary Special screening for malignant neoplasm of prostate Hypertension, unspecified type Benign prostatic hyperplasia without lower urinary tract symptoms Type 2 diabetes mellitus without complication, without long-term current use of insulin (CMS/HCC) Mixed hyperlipidemia Screening, ischemic heart disease Screening for ischemic heart disease documented in this encounter [facility] Work Phone: Evaluation note* Diagnosis Elevated prostate specific antigen (PSA) documented in this encounter [facility] Work Phone: Evaluation note* Diagnosis Hypertension, unspecified type- Primary Other hyperlipidemia Elevated coronary artery calcium score documented in this encounter [facility] Work Phone: Evaluation note* Diagnosis Elevated PSA- Primary Elevated prostate specific antigen (PSA) Type 2 diabetes mellitus without complication, without long-term current use of insulin (CMS/HCC)- Primary Hypertension, unspecified type Benign prostatic hyperplasia without lower urinary tract symptoms Mixed hyperlipidemia Screening, ischemic heart disease Screening for ischemic heart disease Elevated PSA Elevated prostate specific antigen (PSA) documented in this encounter [facility] Work Phone: Evaluation note* Diagnosis Elevated prostate specific antigen (PSA) Elevated PSA- Primary Elevated prostate specific antigen (PSA) Elevated PSA Elevated prostate specific antigen (PSA) documented in this encounter [facility] Work Phone: Evaluation note* Diagnosis Elevated PSA- Primary Elevated prostate specific antigen (PSA) documented in this encounter [facility] Work Phone: Evaluation note* Diagnosis Elevated PSA Elevated prostate specific antigen (PSA) Male erectile disorder of organic origin Impotence of organic origin Nocturia Prostate cancer (CMS/HCC) Malignant neoplasm of prostate documented in this encounter [facility] Work Phone: Evaluation note* Diagnosis Primary osteoarthritis of left knee- Primary Left knee pain, unspecified chronicity [facility] Diagnosis Prostate cancer (CMS/HCC)- Primary Malignant neoplasm of prostate Prostate cancer (CMS/HCC) Malignant neoplasm of prostate documented in this encounter [facility] Work Phone: History of Present illness Narrative* The patient is being seen for the subsequent annual wellness visit. * Past Medical, Surgical and Family History: reviewed and updated in chart. * Medications and Supplements: Review of all medications by a prescribing practitioner or clinical pharmacist (such as prescriptions, OTCs, herbal therapies and supplements) documented in the medical record. * No, the patient is not using opioids. * Patient Self Assessment of Health Status: good. * Tobacco use: Non-User * Alcohol use: Non-User * Illicit drug use: Non-User * Current diet: well balanced diet. * Exercise Frequency: infrequently. * Depression/Suicide Screening: . * During the past 2 weeks, the patient has not felt down, depressed or hopeless. * During the past 2 weeks, the patient has not felt little interest or pleasure in doing things. * Hearing Impairment: Patient has slight hearing impairment, bilaterally. * Cognitive Impairment: No cognitive impairment observed. * Bathing: performs independently. * Dressing: performs independently. * Walking: performs independently. * Managing Finances: performs independently. * Shopping: performs independently. * Managing Medications: performs independently. * Housework / Basic Home Maintenance: performs independently. * Falls Risk Screening:. SANDOVAL has not fallen in the last 6 months. * Home safety risk factors: none. * Advance directives:. Advanced Care Planning discussed and documented advance care plan or surrogatedecision maker documented in the medical record. Patient has living will. Patient has healthcare POA. * Patient's End of Life Decisions: End of life decisions were reviewed with the patient. I agree to follow the patient's decisions. * No low blood sugars since last OV, seen opthalmology in the past year, and no numbness or tingling in feet, skin normal. * No headache, chest pain, shortness of breath, dizziness, lightheadedness, or edema * passed on [place] * sleep at night, appetite OK * had gout in the past month [facility] Work Phone: History of Present illness Narrative* 67-year-old gentleman with a medical history of diabetes, hypertension, here to establish care regarding the following: * Chest heaviness * -Single episode that woke him up at night. Denies any changes with position/palpation/respiration. Was admitted to the hospital; resolved within 2 hours; serial troponins were negative. EKG did not show any significant ST-T segment changes * -Underwent a regadenoson stress test that showed no perfusion defects; EF was noted to be low. Has had only a single episode; denies any exertional angina or shortness of breath. Denies any orthopnea/PND. Does not have any lower extremity edema. Notably CT calcium score performed February 06, 2023 was * [address] [id number] [address] Work Phone: Reason for referral (narrative)* Consultation (Routine) - Authorized Specialty Diagnoses / Procedures Referred By Contac t Referred To Contact Primary Care Diagnoses Hypertension, unspecified type Benign prostatic hyperplasia without lower urinary tract symptoms Type 2 diabetes mellitus without complication, without long-term current use of insulin (CMS/HCC) Mixed hyperlipidemia Screening, ischemic heart disease Procedures Follow Up In Primary Care Maritza Rodriguez MD [address] [phone] Referral ID Status Reason Start Date Expiration Date V isits Requested Visits Authorized [id number] Authorized 01/17/2023 07/16/2023 1 1 * Imaging (Routine) - Authorized Specialty Diagnoses / Procedures Referred By Contac t Referred To Contact Radiology Diagnoses Screening, ischemic heart disease Procedures CT cardiac scoring wo IV contrast Maritza Rodriguez MD [address] [phone] Referral ID Status Reason Start Date Expiration Date Visits Requested Visits Authorized [id number] Authorized Perform Procedure 01/17/2023 07/16/2023 1 1 T [facility] Work Phone: Repsyi for referral (narrative)* Consultation (Routine) - Authorized Specialty Diagnoses / Procedures Referred By Contac t Referred To Contact Primary Care Diagnoses Hypertension, unspecified type Benign prostatic hyperplasia without lower urinary tract symptoms Type 2 diabetes mellitus without complication, without long-term current use of insulin (CMS/HCC) Mixed hyperlipidemia Screening, ischemic heart disease Procedures Follow Up In Primary Care Maritza Rodriguez MD [address] [phone] Referral ID Status Reason Start Date Expiration Date V isits Requested Visits Authorized [id number] Authorized 02/16/2023 08/15/2023 1 1 T [facility] Work Phone: Reason for referral (narrative)* Consultation (Routine) - Authorized Specialty Diagnoses / Procedures Referred By Madeleine t Referred To Contact Primary Care Diagnoses Hypertension, unspecified type Benign prostatic hyperplasia without lower urinary tract symptoms Type 2 diabetes mellitus without complication, without long-term current use of insulin (CMS/HCC) Mixed hyperlipidemia Screening, ischemic heart disease Procedures Follow Up In Primary Care - Established Maritza Rodriguez MD [address] [place] [address] Referral ID Status Reason Start Date Expiration Date V isits Requested Visits Authorized [id number] Authorized 09/04/2023 09/03/2024 1 1 [facility] Work Phone: Summary Purpose Family History No Family History Records Found Mother Name Dates Details Family history of hyperlipid emia(V18.19, Z83.438) Status:Active Family history of hypertensi on(V17.49, Z82.49) Status:Active Family history of malignant neoplasm of breast(V16.3, Z80.3) Status:Active Father Name Dates Details Family history of Alzheimer' s disease(V17.2, Z82.0) Status:Active Mother Name Dates Details Family history of hyperlipid emia(V18.19, Z83.438) Status:Active Family history of hypertensi on(V17.49, Z82.49) Status:Active Family history of malignant neoplasm of breast(V16.3, Z80.3) Status:Active Father Name Dates Details Family history of Alzheimer' s disease(V17.2, Z82.0) Status:Active Unknown Family Member Name Dates Details Family history of hyperlipid emia: Mother(V18.19, Z83.438) Status:Active Family history of hypertensi on: Mother(V17.49, Z82.49) Status:Active Family history of malignant neoplasm of breast: Mother(V16.3, Z80.3) Status:Active Family history of Alzheimer' s disease: Father(V17.2, Z82.0) Status:Active Unknown Family Member Name Dates Details Family history of hyperlipid emia: Mother(V18.19, Z83.438) Status:Active Family history of hypertensi on: Mother(V17.49, Z82.49) Status:Active Family history of malignant neoplasm of breast: Mother(V16.3, Z80.3) Status:Active Family history of Alzheimer' s disease: Father(V17.2, Z82.0) Status:Active Unknown Family Member Name Dates Details Family history of hyperlipid emia: Mother(V18.19, Z83.438) Status:Active Family history of hypertensi on: Mother(V17.49, Z82.49) Status:Active Family history of malignant neoplasm of breast: Mother(V16.3, Z80.3) Status:Active Family history of Alzheimer' s disease: Father(V17.2, Z82.0) Status:Active Unknown Family Member Name Dates Details Family history of hyperlipid emia: Mother(V18.19, Z83.438) Status:Active Family history of hypertensi on: Mother(V17.49, Z82.49) Status:Active Family history of malignant neoplasm of breast: Mother(V16.3, Z80.3) Status:Active Family history of Alzheimer' s disease: Father(V17.2, Z82.0) Status:Active Unknown Family Member Name Dates Details Family history of hyperlipid emia: Mother(V18.19, Z83.438) Status:Active Family history of hypertensi on: Mother(V17.49, Z82.49) Status:Active Family history of malignant neoplasm of breast: Mother(V16.3, Z80.3) Status:Active Family history of Alzheimer' s disease: Father(V17.2, Z82.0) Status:Active Unknown Family Member Name Dates Details Family history of hyperlipid emia: Mother(V18.19, Z83.438) Status:Active Family history of hypertensi on: Mother(V17.49, Z82.49) Status:Active Family history of malignant neoplasm of breast: Mother(V16.3, Z80.3) Status:Active Family history of Alzheimer' s disease: Father(V17.2, Z82.0) Status:Active Unknown Family Member Name Dates Details Family history of hyperlipid emia: Mother(V18.19, Z83.438) Status:Active Family history of hypertensi on: Mother(V17.49, Z82.49) Status:Active Family history of malignant neoplasm of breast: Mother(V16.3, Z80.3) Status:Active Family history of Alzheimer' s disease: Father(V17.2, Z82.0) Status:Active Unknown Family Member Name Dates Details Family history of hyperlipid emia: Mother(V18.19, Z83.438) Status:Active Family history of hypertensi on: Mother(V17.49, Z82.49) Status:Active Family history of malignant neoplasm of breast: Mother(V16.3, Z80.3) Status:Active Family history of Alzheimer' s disease: Father(V17.2, Z82.0) Status:Active Unknown Family Member Name Dates Details Family history of hyperlipid emia: Mother(V18.19, Z83.438) Status:Active Family history of hypertensi on: Mother(V17.49, Z82.49) Status:Active Family history of malignant neoplasm of breast: Mother(V16.3, Z80.3) Status:Active Family history of Alzheimer' s disease: Father(V17.2, Z82.0) Status:Active Unknown Family Member Name Dates Details Family history of hyperlipid emia: Mother(V18.19, Z83.438) Status:Active Family history of hypertensi on: Mother(V17.49, Z82.49) Status:Active Family history of malignant neoplasm of breast: Mother(V16.3, Z80.3) Status:Active Family history of Alzheimer' s disease: Father(V17.2, Z82.0) Status:Active Unknown Family Member Name Dates Details Family history of hyperlipid emia: Mother(V18.19, Z83.438) Status:Active Family history of hypertensi on: Mother(V17.49, Z82.49) Status:Active Family history of malignant neoplasm of breast: Mother(V16.3, Z80.3) Status:Active Family history of Alzheimer' s disease: Father(V17.2, Z82.0) Status:Active Unknown Family Member Name Dates Details Family history of hyperlipid emia: Mother(V18.19, Z83.438) Status:Active Family history of hypertensi on: Mother(V17.49, Z82.49) Status:Active Family history of malignant neoplasm of breast: Mother(V16.3, Z80.3) Status:Active Family history of Alzheimer' s disease: Father(V17.2, Z82.0) Status:Active Unknown Family Member Name Dates Details Family history of hyperlipid emia: Mother(V18.19, Z83.438) Status:Active Family history of hypertensi on: Mother(V17.49, Z82.49) Status:Active Family history of malignant neoplasm of breast: Mother(V16.3, Z80.3) Status:Active Family history of Alzheimer' s disease: Father(V17.2, Z82.0) Status:Active Family history of myocardial infarction: Brother, Uncle(V17.3, Z82.49) Status:Active Unknown Family Member Name Dates Details Family history of hyperlipid emia: Mother(V18.19, Z83.438) Status:Active Family history of hypertensi on: Mother(V17.49, Z82.49) Status:Active Family history of malignant neoplasm of breast: Mother(V16.3, Z80.3) Status:Active Family history of Alzheimer' s disease: Father(V17.2, Z82.0) Status:Active Family history of myocardial infarction: Brother, Uncle(V17.3, Z82.49) Status:Active Unknown Family Member Name Dates Details Family history of hyperlipid emia: Mother(V18.19, Z83.438) Status:Active Family history of hypertensi on: Mother(V17.49, Z82.49) Status:Active Family history of malignant neoplasm of breast: Mother(V16.3, Z80.3) Status:Active Family history of Alzheimer' s disease: Father(V17.2, Z82.0) Status:Active Family history of myocardial infarction: Brother, Uncle(V17.3, Z82.49) Status:Active Unknown Family Member Name Dates Details Family history of hyperlipid emia: Mother(V18.19, Z83.438) Status:Active Family history of hypertensi on: Mother(V17.49, Z82.49) Status:Active Family history of malignant neoplasm of breast: Mother(V16.3, Z80.3) Status:Active Family history of Alzheimer' s disease: Father(V17.2, Z82.0) Status:Active Family history of myocardial infarction: Brother, Uncle(V17.3, Z82.49) Status:Active Advance Directives No Advanced Directives Records FoundDocuments on File Type Date Recorded Patient Accountant Tax Expl anation Advance Directives and Livin g Will 02/14/2021 6:16 PM Latest Code Status on File Code Status Date Activated Date Inactivated Comments Full Code 03/09/2022 10:29 AM 03/09/2022 1:08 PM Latest Code Status on File Code Status Date Activated Date Inactivated Comments Full Code 03/09/2022 10:29 AM 03/09/2022 1:08 PM Latest Code Status on File Date Activated Date Inactivated Comments 03/09/2022 10:29 AM 03/09/2022 1:08 PM Documents on File Type Date Recorded Patient Accountant Tax Expl anation Power of Audiovisual Aids Technician 01/17/2023 4:17 PM Documents on File Type Date Recorded Patient Accountant Tax Expl anation Healthcare Power of Atty 01/17/2023 Documents on File Type Date Recorded Patient Accountant Tax Expl anation Healthcare Power of Atty 01/17/2023 Latest Code Status on File Code Status Date Activated Date Inactivated Comments Full Code 09/12/2023 6:44 AM Question Answer Comments Plan of Care: Code Status Discussion Completed Decision Maker: Patient Latest Code Status on File Code Status Date Activated Date Inactivated Comments Full Code 09/12/2023 6:44 AM 09/12/2023 11:11 AM Question Answer Comments Plan of Care: Code Status Discussion Completed Decision Maker: Patient Latest Code Status on File Code Status Date Activated Date Inactivated Comments Full Code 03/09/2022 10:29 AM 03/09/2022 1:08 PM Latest Code Status on File Code Status Date Activated Date Inactivated Comments Full Code 11/07/2023 6:25 AM Question Answer Comments Plan of Care: Code Status Discussion Completed Decision Maker: Patient Code Status History Code Status Date Activated Date Inactivated Comments Full Code 09/12/2023 6:44 AM 09/12/2023 11:11 AM Question Answer Comments Plan of Care: Code Status Discussion Completed Decision Maker: Patient Chief Complaint 4 mos w/PSA6 MO BPH DMII HTN HL CK REV LABSElevated PSA6 MO F/U DM HTN REV LABS6 MO F/U REV LABSChest discomfort2 year w/ psa Reason for Referral Specialty Diagnoses / Procedures Referred By Contac t Referred To Contact Diagnoses Right leg swelling Procedures Ultrasound duplex venous leg right Chris Arzola, DPM [address] [place] [address] Referral ID Status Reason Start Date Expiration Date V isits Requested Visits Authorized [id number] Authorized 05/12/2022 05/12/2023 1 1 Specialty Diagnoses / Procedures Referred By Contac t Referred To Contact Radiology Diagnoses Elevated prostate specific antigen (PSA) Procedures MR prostate shorty boundaries MR prostate Robbie Osborne MD [address] [address] Referral ID Status Reason Start Date Expiration Date Visits Requested Visits Authorized [id number] Authorized Perform Procedure 07/15/2023 01/11/2024 1 1 Specialty Diagnoses / Procedures Referred By Contac t Referred To Contact Radiology Diagnoses Elevated prostate specific antigen (PSA) Procedures MR prostate shorty boundaries MR prostate Robbie Osborne MD [address] [place] [address] Additional Source Comments (unrecognized sect ion and content) No Status Records FoundNo Status Records FoundNo Status Records FoundNo Status Records FoundNo Status Records FoundNo Status Records FoundNo Status Records FoundNo Status Records FoundNo Status Records FoundNo Status Records Found INFORMATION SOURCE (unrecogn ized section and content) DATE CREATED AUTHOR AUTHOR'S ORGANIZ ATION 03/17/2022 [facility] DATE CREATED AUTHOR AUTHOR'S ORGANIZ ATION 05/06/2022 [facility] DATE CREATED AUTHOR AUTHOR'S ORGANIZ ATION 03/11/[address] [facility] DATE CREATED AUTHOR AUTHOR'S ORGANIZ ATION 07/20/2023 [facility] DATE CREATED AUTHOR AUTHOR'S ORGANIZ ATION 07/20/2023 [employer] DATE CREATED AUTHOR AUTHOR'S ORGANIZ ATION 08/28/2023 [facility] DATE CREATED AUTHOR AUTHOR'S ORGANIZ ATION 09/30/2023 [facility] DATE CREATED AUTHOR AUTHOR'S ORGANIZ ATION 10/23/2023 [facility] DATE CREATED AUTHOR AUTHOR'S ORGANIZ ATION 11/07/2023 [facility] Reason for Visit (unrecogniz ed section and content) Reason Comments Follow-up R foot gout -doing m uch better Reason Comments Ankle Pain Patient is here for right ankle pain due to gout x 3 weeks. He has been taking ibuprofen and drinking fair juice. Reason Comments Physical Therapy Specialty Diagnoses / Procedures Referred By Madeleine t Referred To Contact Rehabilitation Diagnoses Jose's deformity of right heel Chris Arzola, MARCUS [address] [place] [address] [facility] [address] [place] [address] Referral ID Status Reason Start Date Expiration Date V isits Requested Visits Authorized [id number] Authorized 01/06/2022 01/06/2023 9 199 Reason Comments Pre-op Exam Patient is here for history and physical. Reason Comments Post-op Post op jose's de formity and bunionectomy of right foot. Patient is in a cast today. Reason Comments Post-op POST OP RIGHT FOOT F ROM 03/09/2022. CAST AND SUTURE REMOVAL ORDERED FOR TODAY. TAKING XERALTO. NO COMPAINTS. Reason Comments Post-op Post op right foot. Cast removal ands x-rays were ordered for today. Patient ran out of Leixir this past weekend. Has had cramping in arch past couple days. Reason Comments Post-op Post op right foot b unionectomy. X-rays taken today. He has been doing the movement exercises. Feels good. No pain. Reason Comments Post-op Pt states his foot i s doing well in his opinion, no pain, no falls. Some swelling in noticed. Reason Comments Post-op Post op from right f oot sx that was done on 03-09-22. Pt states he is doing well post op. Pt states he has no pain but does have slight swelling. Pt states he has been doing some right grt toes exercises. Reason Comments Medicare Annual Wellness Visit Asiya t 6 MO DM Labs Reason Comments 1 MO F/U Specialty Diagnoses / Procedures Referred By Madeleine dos santos Referred To Contact Primary Care Diagnoses Hypertension, unspecified type Benign prostatic hyperplasia without lower urinary tract symptoms Type 2 diabetes mellitus without complication, without long-term current use of insulin ([facility]) Mixed hyperlipidemia Screening, ischemic heart disease Procedures Follow Up In Primary Care Maritza Rodriguez MD [address] [place] [address] Referral ID Status Reason Start Date Expiration Date V isits Requested Visits Authorized [id number] Authorized 01/17/2023 07/16/2023 1 1 Specialty Diagnoses / Procedures Referred By Madeleine dos santos Referred To Contact Radiology Diagnoses Elevated prostate specific antigen (PSA) Procedures MR prostate shorty boundaries MR prostate Robbie Osborne MD [address] [place] [address] Referral ID Status Reason Start Date Expiration Date Visits Requested Visits Authorized [id number] Authorized Perform Procedure 07/15/2023 01/11/2024 1 1 Reason Comments 6 [facility] Specialty Diagnoses / Procedures Referred By Madeleine dos santos Referred To Contact Primary Care Diagnoses Hypertension, unspecified type Benign prostatic hyperplasia without lower urinary tract symptoms Type 2 diabetes mellitus without complication, without long-term current use of insulin ([facility]) Mixed hyperlipidemia Screening, ischemic heart disease Procedures Follow Up In Primary Care Maritza Rodriguez MD [address] [place] [address] Referral ID Status Reason Start Date Expiration Date Visits Re quested Visits Authorized [id number] Closed 02/16/2023 08/15/2023 1 1 Specialty Diagnoses / Procedures Referred By Madeleine dos santos Referred To Contact Radiology Diagnoses Elevated prostate specific antigen (PSA) Procedures MR prostate shorty boundaries MR prostate Robbie Osborne MD [address] [place] [address] Specialty Diagnoses / Procedures Referred By Madeleine dos santos Referred To Contact Diagnoses Elevated PSA Elevated PSA [R97.20] Procedures MD PROSTATE NEEDLE BIOPSY ANY APPROACH CHG US TRANSRECTAL CHG US GUIDANCE NEEDLE PLACEMENT IMG S&I MRI GUIDED PROSTATE FUSION BIOPSY Ultrasonography Transrectal Prostate Biopsy Anus Robbie Osborne MD [address] [place] [address] [address] Referral ID Status Reason Start Date Expiration Date Visits Re quested Visits Authorized [id number] 1 1 Reason Comments bx results Reason Comments Pain Specialty Diagnoses / Procedures Referred By Contac t Referred To Contact Sports Medicine Diagnoses Left knee pain, unspecified chronicity Maritza Rodriguez MD [address] [place] [address] Daria Mayo, KNIFE OPERATOR [address] [place] [address] Referral ID Status Reason Start Date Expiration Date Visits Re quested Visits Authorized [id number] Closed 09/27/2023 09/26/2024 1 1 Specialty Diagnoses / Procedures Referred By Contac t Referred To Contact Diagnoses Prostate cancer (CMS/HCC) Prostate cancer (CMS/HCC) [C61] Procedures CHG US TRANSRECTAL MD PLMT INTERSTITIAL DEV RADIAT TX PROSTATE 1/MULT Ultrasonography Transrectal Prostate with SpaceOAR and Fudicial Markers Insertion Fiducial Marker Prostate Robbie Osborne MD [address] [place] [address] [address] Referral ID Status Reason Start Date Expiration Date Visits Re quested Visits Authorized [id number] 1 1 Care Teams (unrecognized sec tion and content) Computer Information Systems Professor Relationship Specialty Start Date End Date Maritza Rodriguez MD [address] [place] [address] PCP - General Family Medicine 04/22/21 Computer Information Systems Professor Relationship Specialty Start Date End Date Maritza Rodriguez MD [address] [place] [phone] PCP - General Family Medicine 04/22/21 Computer Information Systems Professor Relationship Specialty Start Date End Date Maritza Rodriguez MD [address] [place] [address] PCP - General Family Medicine 04/22/21 Computer Information Systems Professor Relationship Specialty Start Date End Date aMritza Rodriguez MD [address] [place] [address] PCP - General Family Medicine 04/22/21 Computer Information Systems Professor Relationship Specialty Start Date End Date Maritza Rodriguez MD [address] [place] [address] PCP - General Family Medicine 04/22/21 Computer Information Systems Professor Relationship Specialty Start Date End Date Maritza Rodriguez MD [address] [place] [address] PCP - General Family Medicine 04/22/21 Computer Information Systems Professor Relationship Specialty Start Date End Date Maritza Rodriguez MD [address] [place] [phone] 626- PCP - General Family Medicine 04/22/21 Computer Information Systems Professor Relationship Specialty Start Date End Date Maritza Rodriguez MD [address] [place] [address] PCP - General Family Medicine 04/22/21 Computer Information Systems Professor Relationship Specialty Start Date End Date Maritza Rodriguez MD [address] [place] [address] PCP - General Family Medicine 04/22/21 Computer Information Systems Professor Relationship Specialty Start Date End Date Maritza Rodriguez MD [address] [place] [address] PCP - General 06/18/19 Maritza Rodriguez MD [address] [place] [address] PCP - [employer] Medicare Advantage PCP 11/16/21 Computer Information Systems Professor Relationship Specialty Start Date End Date Maritza Rodriguez MD [address] [place] [address] PCP - General 06/18/19 Maritza Rodriguez MD [address] [place] [address] PCP - [employer] Medicare Advantage PCP 11/16/21 Computer Information Systems Professor Relationship Specialty Start Date End Date Donte Page MD [address] [place] [address] PCP - [employer] Medicare Advantage PCP 10/16/22 Maritza Rodriguez MD [address] [place] [address] PCP - General Family Medicine 08/07/23 Computer Information Systems Professor Relationship Specialty Start Date End Date Donte Page MD [address] [place] [address] PCP - [employer] Medicare Advantage PCP 10/16/22 Maritza Rodriguez MD [address] [place] [address] PCP - General Family Medicine 08/07/23 Computer Information Systems Professor Relationship Specialty Start Date End Date Donte Page MD [address] [place] [address] PCP - [employer] Medicare Advantage PCP 10/16/22 Maritza Rodriguez MD [address] [place] [address] PCP - General Family Medicine 08/07/23 Computer Information Systems Professor Relationship Specialty Start Date End Date Donte Page MD [address] [place] [address] PCP - [employer] Medicare Advantage PCP 10/16/22 Maritza Rodriguez MD [address] [place] [address] PCP - General Family Medicine 08/07/23 Computer Information Systems Professor Relationship Specialty Start Date End Date Donte Page MD [address] [place] [address] PCP - [employer] Medicare Advantage PCP 10/16/22 Maritza Rodriguez MD [address] [place] [address] PCP - General Family Medicine 08/07/23 Computer Information Systems Professor Relationship Specialty Start Date End Date Donte Page MD [address] [place] [address] PCP - [employer] Medicare Advantage PCP 10/16/22 Maritza Rodriguez MD [address] [place] [address] PCP - General Family Medicine 08/07/23 Computer Information Systems Professor Relationship Specialty Start Date End Date Maritza Rodriguez MD [address] [place] [address] PCP - General Family Medicine 04/22/21 Computer Information Systems Professor Relationship Specialty Start Date End Date Donte Page MD [address] [place] [address] PCP - tna Medicare Advantage PCP 10/16/22 Maritza Rodriguez MD [address] [place] [address] PCP - General Family Medicine 08/07/23 <item> Privacy Markings (unrecogniz ed section and content) Section Author: Ese Moreno PROHIBITION ON REDISCLOSURE OF CONFIDENTIAL INFORMATION This notice accompanies a disclosure of information concerning a client made to you with the consent of such client. Scheduled Active and Recently Administ ered Medications (unrecognized section and content) Continuous Medication Order 09/10/2023 09/11/2023 09/12/2023 lactated Ringer's infusion 50 mL/hr, intravenous, Continuous, Starting on Mon09/12/23 at 0645, Preprocedure 0650 (New Bag - Prov ider: Anna Arguello RN) lactated Ringer's infusion 100 mL/hr, intravenous, Continuous, Starting on Mon09/12/23 at 0815, Recovery (only) 0815 (Due) PRN Medication Order 09/10/2023 09/11/2023 09/12/2023 labetaloL (Normodyne,Trandate) injection 5 mg 5 mg, intravenous, Administer over 1 Minutes, Once as needed, systolic blood pressure greater than 180 mmHg, dystolic blood pressure greater than 100 mmHg and heart rate greater than 60 BPM, Starting on Mon09/12/23 at 0811, For 1 dose, Recovery (only) morphine injection 2 mg 2 mg, intravenous, Every 5 min PRN, pain moderate (4-6), first line, Starting on Mon09/12/23 at 0811, Recovery (only), Max total of 20 mg regardless of dose. morphine injection 4 mg 4 mg, intravenous, Every 5 min PRN, pain severe (7-10), first line, Starting on Mon09/12/23 at 0811, Recovery (only), Max total of 20 mg regardless of dose. ondansetron (Zofran) injection 4 mg 4 mg, intravenous, Once as needed, nausea/vomiting, first line, Starting on Mon09/12/23 at 0811, For 1 dose, Recovery (only), When administering via IV Push, administer over 3-5 minutes. oxyCODONE (Roxicodone) immediate release tablet 5 mg 5 mg, oral, Every 4 hours PRN, pain mild (1-3), first line, Starting on Mon09/12/23 at 0811, Recovery (only), When able to take oral medications., If ordered PRN for pain, nurse is permitted to administer this medication for higher pain scores based on patient preference? Yes promethazine (Phenergan) 6.25 mg in sodium chloride 0.9% 50 mL IV 6.25 mg, intravenous, Administer over 15 Minutes, Once as needed, Nausea/vomiting, second line, Starting on Mon09/12/23 at 0811, For 1 dose, Recovery (only) Scheduled Medication Order 11/05/2023 11/06/2023 11/07/2023 levoFLOXacin (Levaquin) IV 500 mg (COMPLETED) 500 mg, intravenous, at 100 mL/hr, Administer over 60 Minutes, Once, On Mon11/07/23 at 0745, For 1 dose, Intraprocedure, premix bag, Dosing of this medication varies based on severity of illness. Does this patient have sepsis or concern for sepsis (probable or documented infection plus systemic manifestations of infection)? No, Suspected Indication (Select all that apply): Other, Specify: prostate cancer, Type of Therapy: Definitive, No Cultures 0742 (New Bag - Prov ider: Nani Ellis RN)0842 (Due: Stopped - Provider: Nani Ellis RN) midazolam (Versed) injection 1 mg (COMPLETED) 1 mg, intravenous, Once, On Mon11/07/23 at 0700, For 1 dose, Preprocedure 0742 (Given - Provid er: Nani Ellis RN) Continuous Medication Order 11/05/2023 11/06/2023 11/07/2023 lactated Ringer's infusion 50 mL/hr, intravenous, Continuous, Starting on Mon11/07/23 at 0700, Preprocedure 0700 (New Bag - Prov ider: Nani Ellis RN) lactated Ringer's infusion 100 mL/hr, intravenous, Continuous, Starting on Mon11/07/23 at 0915, Recovery (only) 0915 (Due) PRN Medication Order 11/05/2023 11/06/2023 11/07/2023 labetaloL (Normodyne,Trandate) injection 5 mg 5 mg, intravenous, Administer over 1 Minutes, Once as needed, systolic blood pressure greater than 180 mmHg, dystolic blood pressure greater than 100 mmHg and heart rate greater than 60 BPM, Starting on Mon11/07/23 at 0912, For 1 dose, Recovery (only) morphine injection 2 mg 2 mg, intravenous, Every 5 min PRN, pain moderate (4-6), first line, Starting on Mon11/07/23 at 0912, Recovery (only), Max total of 20 mg regardless of dose. morphine injection 4 mg 4 mg, intravenous, Every 5 min PRN, pain severe (7-10), first line, Starting on Mon11/07/23 at 0912, Recovery (only), Max total of 20 mg regardless of dose. oxyCODONE (Roxicodone) immediate release tablet 5 mg 5 mg, oral, Every 4 hours PRN, pain mild (1-3), first line, Starting on Mon11/07/23 at 0912, Recovery (only), When able to take oral medications., If ordered PRN for pain, nurse is permitted to administer this medication for higher pain scores based on patient preference? Yes promethazine (Phenergan) 6.25 mg in sodium chloride 0.9% 50 mL IV 6.25 mg, intravenous, Administer over 15 Minutes, Once as needed, Nausea/vomiting, second line, Starting on Mon11/07/23 at 0912, For 1 dose, Recovery (only) sodium chloride bacteriostatic 0.9 % injection (CANCELED) As needed, Starting on Mon11/07/23 at 0840, Intraprocedure 0840 (Given - Provid er: Robbie Osborne MD - Comment: TRANPERINEAL) FOR RECORDS PERTAINING TO PATIENTS WHO ARE OR HAVE BEEN ENROLLED IN A CHEMICAL DEPENDENCY/SUBSTANCEABUSE PROGRAM, SOME INFORMATION MAY BE OMITTED. This clinical summary was aggregated from multiple sources. Caution should be exercised in using it in the provision of clinical care. This summary normalizes information from multiple sources, and as a consequence, information in this document may materially change the coding, format and clinical context of patient data. In addition, data may be omitted in some cases. CLINICAL DECISIONS SHOULD BE BASED ON THE PRIMARY CLINICAL RECORDS. [facility] [employer] [employer] provides no warranty or guarantee of the accuracy or completeness of information in this document.
[2023-11-13 12:09] LABS: CREATININE FINGERSTICK 1.2 mg/dL (0.70-1.30); EGFR FINGERSTICK > 60.0000 mL/min (>60)
== END | disposition home or self-care (01) ==
PROVIDERS: PCP Family Medicine; Referring Provider Student in an Organized Health Care Education/Training Program; Visit Provider Student in an Organized Health Care Education/Training Program
DX: C61 Malignant neoplasm of prostate (principal)
CPT/HCPCS: 72197; A9575